=== PATIENT | male | born 1945 | race Caucasian/White ===

== ENCOUNTER 2017-11-30 11:04 | Outpatient (CLI) | payer MEDICARE ==
[~2017-11-30 11:04] MED LIST: ASPI-1265 PO; COU5T PO; GLIM4TAB79 PO; LANTUS SUBCUT; LOSA100T28 PO; METF1000 PO; METO25TA6 PO; METO50TA16 PO; MULT-785 PO; PIOG45TA PO; PRO30XLT PO; SIMV40TA4
== END 2017-11-30 23:59 | disposition home or self-care (01) ==
LOC: VAS 11:04
PROVIDERS: ATTEND Internal Medicine Cardiovascular Disease
DX: R60.0 Localized edema (principal); E11.9 Type 2 diabetes mellitus without complications; I25.2 Old myocardial infarction; I10 Essential (primary) hypertension; Z95.1 Presence of aortocoronary bypass graft; Z83.42 Family history of familial hypercholesterolemia
CPT/HCPCS: 93971

== ENCOUNTER 2018-02-20 09:30 | Inpatient (IN) | payer MEDICARE ==
[~2018-02-20] VITALS: Ht 167.6 cm; Wt 182.0 kg
[2018-02-20 10:22] LABS: BASOPHILS # (AUTO) 0.1 X10'3 (0-0.2); BASOPHILS % (AUTO) 0.8 % (0-1); EOSINOPHILS # (AUTO) 0.2 X10'3 (0-0.9); EOSINOPHILS % (AUTO) 3.3 % (0-6); HEMATOCRIT 40.7 % (42.0-52.0); HEMOGLOBIN 13.9 g/dl (14.0-17.9); LYMPHOCYTES % (AUTO) 14.2 % (21-51); MEAN CORPUSCULAR HEMOGLOBIN 28.9 PG (27.0-31.0); MEAN CORPUSCULAR HGB CONC 34.1 % (33.0-36.5); MEAN CORPUSCULAR VOLUME 84.9 FL (78-98); MEAN PLATELET VOLUME 7.8 FL (7.4-10.4); MONOCYTES # (AUTO) 0.4 X10'3 (0-0.9); MONOCYTES % (AUTO) 5.8 % (2-12); NEUTROPHILS # (AUTO) 5.4 X10'3 (1.8-7.7); NEUTROPHILS % (AUTO) 75.9 % (42-75); PLATELET COUNT 222 X10'3 (140-440); RED CELL DISTRIBUTION WIDTH 14.4 % (11.5-14.5); WHITE BLOOD COUNT 7.1 X10'3 (4.5-11.0)
[2018-02-20 10:32] LABS: INR 1.8 INR; PARTIAL THROMBOPLASTIN TIME 30 SECONDS (22-32); PROTHROMBIN TIME 18.3 SECONDS (9.0-12.0)
[2018-02-20 10:45] LABS: ALANINE AMINOTRANSFERASE 41 U/L (12-78); ALBUMIN 2.9 G/DL (3.4-5.0); ALBUMIN/GLOBULIN RATIO 0.7 (1.1-1.5); ALKALINE PHOSPHATASE 88 IU/L (46-116); ANION GAP 6 (8-16); ASPARTATE AMINO TRANSFERASE 15 U/L (10-37); BILIRUBIN,TOTAL 0.7 MG/DL (0.1-1.0); BLOOD UREA NITROGEN 29 MG/DL (7-18); BUN/CREATININE RATIO 17.1 (5.4-32.0); CALCIUM 9.1 MG/DL (8.5-10.1); CHLORIDE 92 MMOL/L (99-107); POTASSIUM 5.4 MMOL/L (3.5-5.1); SODIUM 127 MMOL/L (135-145); TOTAL CARBON DIOXIDE 28.9 MMOL/L (24-32); eGFR 40 ML/MIN
[2018-02-20 10:46] LABS: GLUCOSE 540 MG/DL (70-104)
[2018-02-20] MEDS ORDERED: ondansetron/PF 4mg/2ml inj IV ONE (12:00)
[2018-02-20] MEDS ORDERED: sodium bicarbonate (8.4%) inj. 100 MEQ in sodium chloride 0.45% 500ml 500 ML IV PRN (12:01)
[2018-02-20] MEDS ORDERED: potassium CL 20mEq in D5-1/2NS 1,000 ML IV PRN (12:01)
[2018-02-20] MEDS ORDERED: sodium bicarbonate (8.4%) inj. 50 MEQ in sodium chloride 0.45% 500ml 250 ML IV PRN (12:01)
[2018-02-20] MEDS ORDERED: insulin regular, DKA only 100 UNIT in normal saline 100ml IV soln 99 ML IV SCH ×2 (12:01)
[2018-02-20] MEDS ORDERED: mag hydrox/Alum hydrox/simeth 30ml oral suspension PO PRN (12:05)
[2018-02-20] MEDS: K and/or MAG REPLACEMENT MC SCH (12:05)
[2018-02-20] MEDS ORDERED: magnesium hydroxide 30ml (MOM) UD suspension PO PRN (12:05)
[2018-02-20] MEDS ORDERED: potassium Cl 20 mEq SR tablet PO PRN ×4 (12:05)
[2018-02-20] MEDS ORDERED: Neutra Phos packet PO PRN (12:05)
[2018-02-20] MEDS ORDERED: magnesium 2GM in 50ml NS 50 ML IV PRN (12:05)
[2018-02-20] MEDS ORDERED: insulin regular, human 10 units/0.1 ml syringe SQ PRN (12:05)
[2018-02-20] MEDS ORDERED: sodium phosphate inj. 15 MMOL in dextrose 5%-water 150 ML IV PRN (12:05)
[2018-02-20] MEDS ORDERED: sodium phosphate inj. 30 MMOL in dextrose 5%-water 250 ML IV PRN (12:05)
[2018-02-20] MEDS ORDERED: ondansetron/PF 4mg/2ml inj IV PRN (12:05)
[2018-02-20] MEDS ORDERED: magnesium Cl slow-release 64mg tablet PO PRN (12:05)
[2018-02-20] MEDS ORDERED: magnesium 4gm in 100ml NS 100 ML IV PRN (12:05)
[2018-02-20] MEDS ORDERED: K and/or MAG REPLACEMENT MC SCH (12:05)
[2018-02-20] MEDS ORDERED: acetaminophen 325mg tablet PO PRN ×2 (12:05)
[2018-02-20] MEDS ORDERED: potassium Cl 40MEQ/NS 500ml 500 ML IV PRN ×4 (12:05)
[2018-02-20] MEDS ORDERED: insulin regular, human 10 units/0.1 ml syringe IV ONE (12:10)
[2018-02-20 12:31] LABS: LIPASE 646 U/L (73-393); PHOSPHORUS 3.4 MG/DL (2.3-4.5)
[2018-02-20] MEDS: normal saline 1000ml 1,000 ML IV SCH ×4 (12:43→21:10)
[2018-02-20] MEDS ORDERED: NIFE30TA95 PO (12:57)
[2018-02-20] MEDS ORDERED: METO50TA17 PO (12:58)
[2018-02-20] MEDS ORDERED: TETanus/Pertussis (Acell)/Diphther VAC/PF (Tdap-Adult) 0.5ml syringe IMVAC ONE (15:25)
[2018-02-20 15:52] LABS: CLARITY,URINE CLEAR (Clear); COLOR,URINE STRAW (Yellow); GLUCOSE, URINE >=1000 mg/dl (Neg); KETONES,URINE NEGATIVE (Neg); LEUKOCYTE ESTERASE ,URINE NEGATIVE (Neg); NITRITES, URINE NEGATIVE (Neg); OCCULT BLOOD,URINE MODERATE (Neg); PH,URINE 7.5 (4.8-8.0); PROTEIN,URINE 100 mg/dl (Neg); UA COLLECTION TYPE CLN CATCH MIDSTREAM; UROBILINOGEN,URINE 0.2 E.U/dL (0.2-1.0)
[2018-02-20 15:59] LABS: BACTERIA,URINE FEW /HPF (Neg); RBC,URINE 50-100 /HPF (0-2); SQUAMOUS EPITHELIAL CELL,UR FEW /LPF (FEW); WBC,URINE 0-4 /HPF (0-4)
[2018-02-20] MEDS ORDERED: heparin, porcine 5000 units/ml vial SQ SCH (16:00)
[2018-02-20 16:15] LABS: INR 1.8 INR; PROTHROMBIN TIME 18.3 SECONDS (9.0-12.0)
[2018-02-20 16:23] LABS: ALBUMIN 2.6 G/DL (3.4-5.0); ANION GAP 5 (8-16); BLOOD UREA NITROGEN 22 MG/DL (7-18); BUN/CREATININE RATIO 15.8 (5.4-32.0); CALCIUM 8.6 MG/DL (8.5-10.1); CHLORIDE 102 MMOL/L (99-107); CREATININE 1.39 MG/DL (0.60-1.10); GLUCOSE 166 MG/DL (70-104); PHOSPHORUS 1.9 MG/DL (2.3-4.5); POTASSIUM 4.3 MMOL/L (3.5-5.1); SODIUM 137 MMOL/L (135-145); TOTAL CARBON DIOXIDE 30.1 MMOL/L (24-32); eGFR 50 ML/MIN
[2018-02-20 20:45] VITALS: BP 139/61
[2018-02-20] MEDS: metoprolol tartrate 50mg tablet PO SCH (21:09)
[2018-02-20 21:51] LABS: PHOSPHORUS 2.4 MG/DL (2.3-4.5)
[2018-02-20 23:00] VITALS: BP 131/62
[2018-02-20] MEDS: warfarin 5mg tablet PO SCH (23:43)
[2018-02-21 03:00] VITALS: BP 159/71
[2018-02-21 05:09] LABS: BASOPHILS % (AUTO) 0.3 % (0-1); EOSINOPHILS # (AUTO) 0.2 X10'3 (0-0.9); EOSINOPHILS % (AUTO) 3.2 % (0-6); HEMATOCRIT 39.1 % (42.0-52.0); HEMOGLOBIN 13.3 g/dl (14.0-17.9); LYMPHOCYTES # (AUTO) 1.5 X10'3 (1.1-4.8); LYMPHOCYTES % (AUTO) 21.3 % (21-51); MEAN CORPUSCULAR HEMOGLOBIN 29.2 PG (27.0-31.0); MEAN CORPUSCULAR HGB CONC 34.1 % (33.0-36.5); MEAN CORPUSCULAR VOLUME 85.7 FL (78-98); MEAN PLATELET VOLUME 7.8 FL (7.4-10.4); MONOCYTES # (AUTO) 0.5 X10'3 (0-0.9); MONOCYTES % (AUTO) 6.6 % (2-12); NEUTROPHILS # (AUTO) 4.9 X10'3 (1.8-7.7); NEUTROPHILS % (AUTO) 68.6 % (42-75); PLATELET COUNT 182 X10'3 (140-440); RED BLOOD COUNT 4.56 X10'6 (4.70-6.10); RED CELL DISTRIBUTION WIDTH 14.5 % (11.5-14.5); WHITE BLOOD COUNT 7.1 X10'3 (4.5-11.0)
[2018-02-21 05:16] LABS: INR 1.8 INR; PROTHROMBIN TIME 18.1 SECONDS (9.0-12.0)
[2018-02-21 05:35] LABS: MAGNESIUM 1.9 MG/DL (1.5-2.4)
[2018-02-21 06:00] VITALS: BP 178/73
[2018-02-21] MEDS ORDERED: dextrose ORAL solution 15 GM/59 ML bottle PO PRN ×2 (06:35)
[2018-02-21] MEDS ORDERED: dextrose 50%-water 50ml dispensing syringe IV PRN ×2 (06:35)
[2018-02-21] MEDS ORDERED: glucagon, human recombinant 1mg kit SUBCUT PRN (06:35)
[2018-02-21 06:47] LABS: ALANINE AMINOTRANSFERASE 35 U/L (12-78); ALBUMIN 2.3 G/DL (3.4-5.0); ALBUMIN/GLOBULIN RATIO 0.7 (1.1-1.5); ALKALINE PHOSPHATASE 69 IU/L (46-116); ANION GAP 9 (8-16); ASPARTATE AMINO TRANSFERASE 13 U/L (10-37); BILIRUBIN,TOTAL 0.5 MG/DL (0.1-1.0); BLOOD UREA NITROGEN 21 MG/DL (7-18); BUN/CREATININE RATIO 16.8 (5.4-32.0); CALCIUM 8.2 MG/DL (8.5-10.1); CHLORIDE 104 MMOL/L (99-107); CREATININE 1.25 MG/DL (0.60-1.10); GLUCOSE 255 MG/DL (70-104); POTASSIUM 4.5 MMOL/L (3.5-5.1); SODIUM 135 MMOL/L (135-145); TOTAL PROTEIN 5.7 G/DL (6.4-8.2); eGFR 57 ML/MIN
[2018-02-21 06:58] LABS: HEMOGLOBIN A1C 12.9 % (4.5-6.2)
[2018-02-21] MEDS: K and/or MAG REPLACEMENT MC SCH (08:00)
[2018-02-21] MEDS: losartan 50mg tablet PO SCH (08:25)
[2018-02-21] MEDS: metoprolol tartrate 50mg tablet PO SCH ×2 (08:25→20:47)
[2018-02-21] MEDS: NIFEdipine XL 30mg tablet PO SCH (08:25)
[2018-02-21] MEDS: aspirin 81mg tab.chew PO SCH (08:26)
[2018-02-21] MEDS: insulin Lispro (HumaLOG) vial - multi-dose SQ SCH ×4 (09:22→20:56)
[2018-02-21 11:00] VITALS: BP 141/60
[2018-02-21] MEDS: normal saline 1000ml 1,000 ML IV SCH (11:18)
[2018-02-21 15:00] VITALS: BP 136/67
[2018-02-21] MEDS ORDERED: MESSAGE TO PHARMACY PO ONE (17:05)
[2018-02-21 19:00] VITALS: BP 161/72
[2018-02-21] MEDS: warfarin 5mg tablet PO SCH (20:47)
[2018-02-21] MEDS ORDERED: insulin glargine (Lantus) pen - multi-dose SQ SCH (21:00)
[2018-02-21 23:00] VITALS: BP 148/65
[2018-02-22 03:00] VITALS: BP 177/74
[2018-02-22 03:26] VITALS: BP 170/77
[2018-02-22 05:04] LABS: BASOPHILS % (AUTO) 0.5 % (0-1); EOSINOPHILS # (AUTO) 0.3 X10'3 (0-0.9); EOSINOPHILS % (AUTO) 5.2 % (0-6); HEMOGLOBIN 12.8 g/dl (14.0-17.9); LYMPHOCYTES # (AUTO) 1.6 X10'3 (1.1-4.8); LYMPHOCYTES % (AUTO) 25.9 % (21-51); MEAN CORPUSCULAR HEMOGLOBIN 28.7 PG (27.0-31.0); MEAN CORPUSCULAR HGB CONC 33.7 % (33.0-36.5); MEAN CORPUSCULAR VOLUME 85.3 FL (78-98); MEAN PLATELET VOLUME 7.7 FL (7.4-10.4); MONOCYTES # (AUTO) 0.4 X10'3 (0-0.9); MONOCYTES % (AUTO) 6.4 % (2-12); NEUTROPHILS # (AUTO) 3.9 X10'3 (1.8-7.7); PLATELET COUNT 186 X10'3 (140-440); RED BLOOD COUNT 4.45 X10'6 (4.70-6.10); RED CELL DISTRIBUTION WIDTH 14.6 % (11.5-14.5); WHITE BLOOD COUNT 6.4 X10'3 (4.5-11.0)
[2018-02-22 06:00] VITALS: BP 170/72
[2018-02-22] MEDS: NIFEdipine XL 30mg tablet PO SCH (07:57)
[2018-02-22] MEDS: aspirin 81mg tab.chew PO SCH (07:57)
[2018-02-22] MEDS: metoprolol tartrate 50mg tablet PO SCH (07:58)
[2018-02-22] MEDS: losartan 50mg tablet PO SCH (07:58)
[2018-02-22] MEDS ORDERED: atorvastatin 20mg tablet PO SCH (08:00)
[2018-02-22] MEDS: K and/or MAG REPLACEMENT MC SCH (08:00)
[2018-02-22] MEDS ORDERED: lisinopril 10 MG tablet PO SCH (08:00)
[2018-02-22] MEDS: insulin Lispro (HumaLOG) vial - multi-dose SQ SCH (08:06)
[2018-02-22] MEDS ORDERED: CEPH500C5 PO (10:12)
[2018-02-22] MEDS ORDERED: ATOR40TA PO (10:12)
== END 2018-02-22 11:42 | disposition home or self-care (01) | DRG 682 ==
LOC: ER 09:30 → ED HOLD 12:01 → PCU 3S 20:55
PROVIDERS: ADMIT Family Medicine; ATTEND Family Medicine
PROC: 3E0234Z Introduction of Serum, Toxoid and Vaccine into Muscle, Percutaneous Approach (ICD-10-PCS; principal; 2018-02-20)
DX: N17.9 Acute kidney failure, unspecified (principal); E11.00 Type 2 diabetes mellitus with hyperosmolarity without nonketotic hyperglycemic-hyperosmolar coma (NKHHC); G93.41 Metabolic encephalopathy; E87.1 Hypo-osmolality and hyponatremia; E11.22 Type 2 diabetes mellitus with diabetic chronic kidney disease; B35.1 Tinea unguium; I82.502 Chronic embolism and thrombosis of unspecified deep veins of left lower extremity; Z68.44 Body mass index [BMI] 60.0-69.9, adult; L03.811 Cellulitis of head [any part, except face]; B15.9 Hepatitis A without hepatic coma; E87.5 Hyperkalemia; I25.10 Atherosclerotic heart disease of native coronary artery without angina pectoris; I12.9 Hypertensive chronic kidney disease with stage 1 through stage 4 chronic kidney disease, or unspecified chronic kidney disease; K21.9 Gastro-esophageal reflux disease without esophagitis; N18.9 Chronic kidney disease, unspecified; F32.9 Major depressive disorder, single episode, unspecified; E78.5 Hyperlipidemia, unspecified; E66.9 Obesity, unspecified; G89.29 Other chronic pain; R74.0 Nonspecific elevation of levels of transaminase and lactic acid dehydrogenase [LDH]; R74.8 Abnormal levels of other serum enzymes; Z95.1 Presence of aortocoronary bypass graft; Q80.9 Congenital ichthyosis, unspecified; Z90.49 Acquired absence of other specified parts of digestive tract; Z91.19 Patient's noncompliance with other medical treatment and regimen; Z91.010 Allergy to peanuts; Z79.01 Long term (current) use of anticoagulants; Z79.82 Long term (current) use of aspirin; Z79.4 Long term (current) use of insulin; Z79.899 Other long term (current) drug therapy; Z82.49 Family history of ischemic heart disease and other diseases of the circulatory system; Z83.3 Family history of diabetes mellitus; Z23 Encounter for immunization
CPT/HCPCS: 36415; 71045; 80048; 80053; 81001; 82948; 83036; 83690; 83735; 83880; 84100; 84484; 85025; 85610; 85730; 87070; 90715; 93005; 93306; 97116; 97161; 99285; J1815; J7030

== ENCOUNTER 2018-03-14 11:58 | Inpatient (IN) | payer MEDICARE ==
[~2018-03-14] VITALS: Ht 167.6 cm; Wt 74.0 kg
[~2018-03-14 11:58] MED LIST changes: +ATOR40TA PO; -GLIM4TAB79 PO; -METO25TA6 PO; -METO50TA16 PO; +METO50TA17 PO; +NIFE30TA95 PO; -PIOG45TA PO; -PRO30XLT PO; -SIMV40TA4
[2018-03-14 12:46] LABS: BASOPHILS % (AUTO) 0.3 % (0-1); EOSINOPHILS # (AUTO) 0.3 X10'3 (0-0.9); EOSINOPHILS % (AUTO) 2.9 % (0-6); HEMATOCRIT 39.8 % (42.0-52.0); HEMOGLOBIN 13.7 g/dl (14.0-17.9); LYMPHOCYTES % (AUTO) 18.2 % (21-51); MEAN CORPUSCULAR HEMOGLOBIN 29.5 PG (27.0-31.0); MEAN CORPUSCULAR HGB CONC 34.5 % (33.0-36.5); MEAN CORPUSCULAR VOLUME 85.7 FL (78-98); MEAN PLATELET VOLUME 7.9 FL (7.4-10.4); MONOCYTES # (AUTO) 0.5 X10'3 (0-0.9); MONOCYTES % (AUTO) 4.6 % (2-12); NEUTROPHILS # (AUTO) 8.1 X10'3 (1.8-7.7); PLATELET COUNT 243 X10'3 (140-440); RED BLOOD COUNT 4.65 X10'6 (4.70-6.10); RED CELL DISTRIBUTION WIDTH 14.7 % (11.5-14.5); WHITE BLOOD COUNT 10.9 X10'3 (4.5-11.0)
[2018-03-14 12:47] LABS: INR 2.7 INR; PARTIAL THROMBOPLASTIN TIME 35 SECONDS (22-32); PROTHROMBIN TIME 26.7 SECONDS (9.0-12.0)
[2018-03-14 12:51] LABS: ALANINE AMINOTRANSFERASE 46 U/L (12-78); ALBUMIN 3.2 G/DL (3.4-5.0); ALBUMIN/GLOBULIN RATIO 0.9 (1.1-1.5); ALKALINE PHOSPHATASE 76 IU/L (46-116); ANION GAP 10 (8-16); ASPARTATE AMINO TRANSFERASE 15 U/L (10-37); BILIRUBIN,TOTAL 1.2 MG/DL (0.1-1.0); BLOOD UREA NITROGEN 36 MG/DL (7-18); BUN/CREATININE RATIO 16.1 (5.4-32.0); CALCIUM 8.6 MG/DL (8.5-10.1); CHLORIDE 100 MMOL/L (99-107); CREATININE 2.23 MG/DL (0.60-1.10); GLUCOSE 288 MG/DL (70-104); POTASSIUM 5.2 MMOL/L (3.5-5.1); SODIUM 135 MMOL/L (135-145); TOTAL CARBON DIOXIDE 24.7 MMOL/L (24-32); TOTAL PROTEIN 6.7 G/DL (6.4-8.2); eGFR 29 ML/MIN
[2018-03-14] MEDS ORDERED: normal saline 1000ML IV soln IVB ONE (13:05)
[2018-03-14] MEDS ORDERED: normal saline 1000ml 1,000 ML IV ONE (14:55)
[2018-03-14] MEDS ORDERED: ondansetron/PF 4mg/2ml inj IV PRN (15:00)
[2018-03-14] MEDS ORDERED: dextrose ORAL solution 15 GM/59 ML bottle PO PRN ×2 (15:00)
[2018-03-14] MEDS ORDERED: MESSAGE TO PHARMACY PO ONE (15:00)
[2018-03-14] MEDS ORDERED: glucagon, human recombinant 1mg kit SUBCUT PRN (15:00)
[2018-03-14] MEDS ORDERED: dextrose 50%-water 50ml dispensing syringe IV PRN ×2 (15:00)
[2018-03-14] MEDS ORDERED: magnesium hydroxide 30ml (MOM) UD suspension PO PRN (15:00)
[2018-03-14] MEDS ORDERED: mag hydrox/Alum hydrox/simeth 30ml oral suspension PO PRN (15:00)
[2018-03-14] MEDS ORDERED: hydrALAZINE 20mg/ml inj. IV PRN (15:05)
[2018-03-14] MEDS: normal saline 1000ml 1,000 ML IV SCH ×2 (15:22→20:22)
[2018-03-14] MEDS: insulin glargine (Lantus) pen - multi-dose SQ SCH (21:50)
[2018-03-15 02:08] LABS: BASOPHILS % (AUTO) 0.1 % (0-1); EOSINOPHILS # (AUTO) 0.3 X10'3 (0-0.9); EOSINOPHILS % (AUTO) 4.3 % (0-6); HEMATOCRIT 41.3 % (42.0-52.0); HEMOGLOBIN 13.8 g/dl (14.0-17.9); LYMPHOCYTES # (AUTO) 1.6 X10'3 (1.1-4.8); LYMPHOCYTES % (AUTO) 26.6 % (21-51); MEAN CORPUSCULAR HEMOGLOBIN 28.6 PG (27.0-31.0); MEAN CORPUSCULAR HGB CONC 33.4 % (33.0-36.5); MEAN CORPUSCULAR VOLUME 85.5 FL (78-98); MEAN PLATELET VOLUME 8.2 FL (7.4-10.4); MONOCYTES # (AUTO) 0.3 X10'3 (0-0.9); MONOCYTES % (AUTO) 5.7 % (2-12); NEUTROPHILS # (AUTO) 3.7 X10'3 (1.8-7.7); NEUTROPHILS % (AUTO) 63.3 % (42-75); PLATELET COUNT 167 X10'3 (140-440); RED BLOOD COUNT 4.83 X10'6 (4.70-6.10); RED CELL DISTRIBUTION WIDTH 13.8 % (11.5-14.5); WHITE BLOOD COUNT 5.9 X10'3 (4.5-11.0)
[2018-03-15 02:17] LABS: INR 2.2 INR
[2018-03-15 02:27] LABS: ALANINE AMINOTRANSFERASE 33 U/L (12-78); ALBUMIN 2.6 G/DL (3.4-5.0); ALBUMIN/GLOBULIN RATIO 0.8 (1.1-1.5); ALKALINE PHOSPHATASE 71 IU/L (46-116); ANION GAP 8 (8-16); ASPARTATE AMINO TRANSFERASE 13 U/L (10-37); BILIRUBIN,TOTAL 0.9 MG/DL (0.1-1.0); BLOOD UREA NITROGEN 29 MG/DL (7-18); BUN/CREATININE RATIO 18.6 (5.4-32.0); CALCIUM 8.3 MG/DL (8.5-10.1); CHLORIDE 105 MMOL/L (99-107); CREATININE 1.56 MG/DL (0.60-1.10); GLUCOSE 177 MG/DL (70-104); POTASSIUM 3.7 MMOL/L (3.5-5.1); SODIUM 138 MMOL/L (135-145); TOTAL CARBON DIOXIDE 24.9 MMOL/L (24-32); eGFR 44 ML/MIN
[2018-03-15] MEDS ORDERED: non-formulary drug (Atorvastatin Calcium* (Lipitor*) 1 TAB) PO SCH (08:00)
[2018-03-15] MEDS ORDERED: LOSARTAN POTASSIUM PO SCH (08:00)
[2018-03-15] MEDS ORDERED: losartan 50mg tablet PO SCH (08:00)
[2018-03-15] MEDS: multivitamins, therapeutics tablet PO SCH (09:27)
[2018-03-15] MEDS: atorvastatin 20mg tablet PO SCH (09:27)
[2018-03-15] MEDS: aspirin 81mg tab.chew PO SCH (09:27)
[2018-03-15] MEDS: normal saline 1000ml 1,000 ML IV SCH ×2 (10:56→18:58)
[2018-03-15 13:55] VITALS: BP 157/70
[2018-03-15 18:00] VITALS: BP 174/75
[2018-03-15] MEDS: insulin Lispro (HumaLOG) vial - multi-dose SQ SCH (19:02)
[2018-03-15] MEDS: insulin glargine (Lantus) pen - multi-dose SQ SCH (21:23)
[2018-03-15 22:00] VITALS: BP 183/73
[2018-03-15 22:30] VITALS: BP 161/77
[2018-03-16 02:00] VITALS: BP 167/75
[2018-03-16] MEDS: normal saline 1000ml 1,000 ML IV SCH ×2 (04:29→17:24)
[2018-03-16] MEDS: hydrALAZINE 20mg/ml inj. IV PRN ×2 (05:41→17:24)
[2018-03-16 05:51] LABS: BASOPHILS % (AUTO) 0.5 % (0-1); EOSINOPHILS # (AUTO) 0.3 X10'3 (0-0.9); EOSINOPHILS % (AUTO) 4.7 % (0-6); HEMATOCRIT 40.5 % (42.0-52.0); HEMOGLOBIN 13.8 g/dl (14.0-17.9); LYMPHOCYTES # (AUTO) 1.6 X10'3 (1.1-4.8); LYMPHOCYTES % (AUTO) 26.7 % (21-51); MEAN CORPUSCULAR HEMOGLOBIN 29.5 PG (27.0-31.0); MEAN CORPUSCULAR HGB CONC 34.1 % (33.0-36.5); MEAN CORPUSCULAR VOLUME 86.6 FL (78-98); MEAN PLATELET VOLUME 7.6 FL (7.4-10.4); MONOCYTES # (AUTO) 0.4 X10'3 (0-0.9); MONOCYTES % (AUTO) 6.4 % (2-12); NEUTROPHILS # (AUTO) 3.7 X10'3 (1.8-7.7); NEUTROPHILS % (AUTO) 61.7 % (42-75); PLATELET COUNT 170 X10'3 (140-440); RED BLOOD COUNT 4.68 X10'6 (4.70-6.10); RED CELL DISTRIBUTION WIDTH 14.6 % (11.5-14.5)
[2018-03-16 06:00] VITALS: BP 175/77
[2018-03-16 06:21] LABS: ALANINE AMINOTRANSFERASE 35 U/L (12-78); ALBUMIN 2.5 G/DL (3.4-5.0); ALBUMIN/GLOBULIN RATIO 0.8 (1.1-1.5); ALKALINE PHOSPHATASE 62 IU/L (46-116); ANION GAP 7 (8-16); ASPARTATE AMINO TRANSFERASE 10 U/L (10-37); BILIRUBIN,TOTAL 1.1 MG/DL (0.1-1.0); BLOOD UREA NITROGEN 19 MG/DL (7-18); BUN/CREATININE RATIO 13.8 (5.4-32.0); CHLORIDE 106 MMOL/L (99-107); CREATININE 1.38 MG/DL (0.60-1.10); GLUCOSE 83 MG/DL (70-104); POTASSIUM 4.1 MMOL/L (3.5-5.1); SODIUM 141 MMOL/L (135-145); TOTAL CARBON DIOXIDE 27.7 MMOL/L (24-32); TOTAL PROTEIN 5.7 G/DL (6.4-8.2); eGFR 51 ML/MIN
[2018-03-16] MEDS: multivitamins, therapeutics tablet PO SCH (09:21)
[2018-03-16] MEDS: aspirin 81mg tab.chew PO SCH (09:21)
[2018-03-16] MEDS: carVEDilol 3.125mg tablet PO SCH ×2 (09:21→20:01)
[2018-03-16] MEDS: losartan 50mg tablet PO SCH (09:21)
[2018-03-16] MEDS: atorvastatin 20mg tablet PO SCH (09:24)
[2018-03-16] MEDS: insulin Lispro (HumaLOG) vial - multi-dose SQ SCH ×3 (09:29→19:01)
[2018-03-16 10:00] VITALS: BP 148/67
[2018-03-16 18:00] VITALS: BP 176/76
[2018-03-16] MEDS ORDERED: warfarin 5mg tablet PO SCH (21:00)
[2018-03-16] MEDS: insulin glargine (Lantus) pen - multi-dose SQ SCH (21:25)
[2018-03-16 22:00] VITALS: BP 158/65
[2018-03-17] VITALS (9 sets, daily range): BP systolic 139–201; BP diastolic 60–77
[2018-03-17] MEDS: normal saline 1000ml 1,000 ML IV SCH (00:16)
[2018-03-17] MEDS: acetaminophen 325mg tablet PO PRN ×3 (02:39→19:52)
[2018-03-17] MEDS: hydrALAZINE 20mg/ml inj. IV PRN ×3 (02:40→17:54)
[2018-03-17 07:13] LABS: BASOPHILS % (AUTO) 0.3 % (0-1); EOSINOPHILS # (AUTO) 0.3 X10'3 (0-0.9); EOSINOPHILS % (AUTO) 5.2 % (0-6); HEMOGLOBIN 13.6 g/dl (14.0-17.9); LYMPHOCYTES # (AUTO) 1.1 X10'3 (1.1-4.8); LYMPHOCYTES % (AUTO) 17.1 % (21-51); MEAN CORPUSCULAR HEMOGLOBIN 29.5 PG (27.0-31.0); MEAN CORPUSCULAR VOLUME 86.7 FL (78-98); MONOCYTES # (AUTO) 0.4 X10'3 (0-0.9); MONOCYTES % (AUTO) 6.4 % (2-12); NEUTROPHILS # (AUTO) 4.5 X10'3 (1.8-7.7); PLATELET COUNT 178 X10'3 (140-440); RED BLOOD COUNT 4.62 X10'6 (4.70-6.10); RED CELL DISTRIBUTION WIDTH 14.7 % (11.5-14.5); WHITE BLOOD COUNT 6.4 X10'3 (4.5-11.0)
[2018-03-17 07:30] LABS: INR 1.2 INR; PROTHROMBIN TIME 12.3 SECONDS (9.0-12.0)
[2018-03-17 07:37] LABS: ALANINE AMINOTRANSFERASE 32 U/L (12-78); ALBUMIN 2.3 G/DL (3.4-5.0); ALBUMIN/GLOBULIN RATIO 0.7 (1.1-1.5); ALKALINE PHOSPHATASE 63 IU/L (46-116); ANION GAP 9 (8-16); ASPARTATE AMINO TRANSFERASE 12 U/L (10-37); BILIRUBIN,TOTAL 1.2 MG/DL (0.1-1.0); BLOOD UREA NITROGEN 20 MG/DL (7-18); BUN/CREATININE RATIO 14.9 (5.4-32.0); CALCIUM 7.9 MG/DL (8.5-10.1); CHLORIDE 108 MMOL/L (99-107); CREATININE 1.34 MG/DL (0.60-1.10); GLUCOSE 110 MG/DL (70-104); SODIUM 140 MMOL/L (135-145); TOTAL CARBON DIOXIDE 23.5 MMOL/L (24-32); TOTAL PROTEIN 5.5 G/DL (6.4-8.2); eGFR 53 ML/MIN
[2018-03-17] MEDS: carVEDilol 3.125mg tablet PO SCH (07:52)
[2018-03-17] MEDS: multivitamins, therapeutics tablet PO SCH (07:52)
[2018-03-17] MEDS: losartan 50mg tablet PO SCH ×2 (07:52→12:03)
[2018-03-17] MEDS: aspirin 81mg tab.chew PO SCH (07:52)
[2018-03-17] MEDS: atorvastatin 20mg tablet PO SCH (07:52)
[2018-03-17] MEDS: insulin Lispro (HumaLOG) vial - multi-dose SQ SCH ×3 (08:56→19:41)
[2018-03-17] MEDS: carvedilol 6.25mg tablet PO SCH ×2 (12:03→19:55)
[2018-03-17] MEDS ORDERED: carvedilol 6.25mg tablet PO SCH ×2 (20:00)
[2018-03-17] MEDS ORDERED: warfarin 4mg tablet PO ONE (21:00)
[2018-03-18 01:53] VITALS: BP 174/81
[2018-03-18] MEDS: hydrALAZINE 20mg/ml inj. IV PRN (02:09)
[2018-03-18 05:50] LABS: BASOPHILS % (AUTO) 0.6 % (0-1); EOSINOPHILS # (AUTO) 0.3 X10'3 (0-0.9); EOSINOPHILS % (AUTO) 5.2 % (0-6); HEMATOCRIT 39.3 % (42.0-52.0); HEMOGLOBIN 13.7 g/dl (14.0-17.9); LYMPHOCYTES # (AUTO) 0.7 X10'3 (1.1-4.8); LYMPHOCYTES % (AUTO) 11.9 % (21-51); MEAN CORPUSCULAR HEMOGLOBIN 29.6 PG (27.0-31.0); MEAN CORPUSCULAR HGB CONC 34.7 % (33.0-36.5); MEAN CORPUSCULAR VOLUME 85.3 FL (78-98); MEAN PLATELET VOLUME 7.6 FL (7.4-10.4); MONOCYTES # (AUTO) 0.5 X10'3 (0-0.9); MONOCYTES % (AUTO) 7.9 % (2-12); NEUTROPHILS # (AUTO) 4.4 X10'3 (1.8-7.7); NEUTROPHILS % (AUTO) 74.4 % (42-75); PLATELET COUNT 179 X10'3 (140-440); RED BLOOD COUNT 4.62 X10'6 (4.70-6.10); RED CELL DISTRIBUTION WIDTH 14.6 % (11.5-14.5); WHITE BLOOD COUNT 5.9 X10'3 (4.5-11.0)
[2018-03-18 06:00] VITALS: BP 138/84
[2018-03-18 06:03] LABS: INR 1.2 INR; PROTHROMBIN TIME 12.7 SECONDS (9.0-12.0)
[2018-03-18 06:10] LABS: ALANINE AMINOTRANSFERASE 31 U/L (12-78); ALBUMIN 2.5 G/DL (3.4-5.0); ALBUMIN/GLOBULIN RATIO 0.8 (1.1-1.5); ALKALINE PHOSPHATASE 63 IU/L (46-116); ANION GAP 9 (8-16); ASPARTATE AMINO TRANSFERASE 14 U/L (10-37); BLOOD UREA NITROGEN 18 MG/DL (7-18); CALCIUM 8.6 MG/DL (8.5-10.1); CHLORIDE 105 MMOL/L (99-107); CREATININE 1.38 MG/DL (0.60-1.10); GLUCOSE 168 MG/DL (70-104); SODIUM 138 MMOL/L (135-145); TOTAL CARBON DIOXIDE 24.3 MMOL/L (24-32); TOTAL PROTEIN 5.8 G/DL (6.4-8.2); eGFR 51 ML/MIN
[2018-03-18] MEDS: atorvastatin 20mg tablet PO SCH (08:28)
[2018-03-18] MEDS: multivitamins, therapeutics tablet PO SCH (08:28)
[2018-03-18] MEDS: losartan 50mg tablet PO SCH (08:29)
[2018-03-18] MEDS: carvedilol 6.25mg tablet PO SCH ×2 (08:29→19:20)
[2018-03-18] MEDS: aspirin 81mg tab.chew PO SCH (08:29)
[2018-03-18] MEDS: insulin Lispro (HumaLOG) vial - multi-dose SQ SCH ×3 (08:31→19:18)
[2018-03-18] MEDS ORDERED: hydrALAZINE 25 MG tablet PO PRN (12:20)
[2018-03-18 12:50] VITALS: BP 156/66
[2018-03-18] MEDS: HYDROchlorothiazide 12.5mg capsule PO SCH (16:39)
[2018-03-18 18:00] VITALS: BP 138/76
[2018-03-18] MEDS ORDERED: warfarin 5mg tablet PO ONE (21:00)
[2018-03-18 22:30] VITALS: BP 143/43
[2018-03-19 05:35] LABS: BASOPHILS % (AUTO) 0.5 % (0-1); EOSINOPHILS # (AUTO) 0.3 X10'3 (0-0.9); EOSINOPHILS % (AUTO) 4.7 % (0-6); HEMATOCRIT 38.9 % (42.0-52.0); HEMOGLOBIN 13.3 g/dl (14.0-17.9); LYMPHOCYTES # (AUTO) 0.7 X10'3 (1.1-4.8); LYMPHOCYTES % (AUTO) 11.2 % (21-51); MEAN CORPUSCULAR HEMOGLOBIN 29.4 PG (27.0-31.0); MEAN CORPUSCULAR HGB CONC 34.1 % (33.0-36.5); MEAN CORPUSCULAR VOLUME 86.5 FL (78-98); MEAN PLATELET VOLUME 7.6 FL (7.4-10.4); MONOCYTES # (AUTO) 0.5 X10'3 (0-0.9); MONOCYTES % (AUTO) 7.4 % (2-12); NEUTROPHILS # (AUTO) 5.1 X10'3 (1.8-7.7); NEUTROPHILS % (AUTO) 76.2 % (42-75); PLATELET COUNT 173 X10'3 (140-440); RED CELL DISTRIBUTION WIDTH 15.3 % (11.5-14.5); WHITE BLOOD COUNT 6.7 X10'3 (4.5-11.0)
[2018-03-19 05:42] LABS: INR 1.5 INR; PROTHROMBIN TIME 14.9 SECONDS (9.0-12.0)
[2018-03-19 06:32] LABS: ALANINE AMINOTRANSFERASE 34 U/L (12-78); ALBUMIN 2.5 G/DL (3.4-5.0); ALBUMIN/GLOBULIN RATIO 0.8 (1.1-1.5); ALKALINE PHOSPHATASE 66 IU/L (46-116); ANION GAP 10 (8-16); ASPARTATE AMINO TRANSFERASE 17 U/L (10-37); BILIRUBIN,TOTAL 0.7 MG/DL (0.1-1.0); BLOOD UREA NITROGEN 20 MG/DL (7-18); BUN/CREATININE RATIO 13.6 (5.4-32.0); CALCIUM 8.5 MG/DL (8.5-10.1); CHLORIDE 102 MMOL/L (99-107); CREATININE 1.47 MG/DL (0.60-1.10); GLUCOSE 133 MG/DL (70-104); POTASSIUM 4.4 MMOL/L (3.5-5.1); SODIUM 135 MMOL/L (135-145); TOTAL CARBON DIOXIDE 23.3 MMOL/L (24-32); TOTAL PROTEIN 5.8 G/DL (6.4-8.2); eGFR 47 ML/MIN
[2018-03-19] MEDS ORDERED: CARV6.253 PO (08:22)
[2018-03-19] MEDS ORDERED: HYDR12.5 PO (08:22)
[2018-03-19] MEDS: multivitamins, therapeutics tablet PO SCH (08:58)
[2018-03-19] MEDS: losartan 50mg tablet PO SCH (08:58)
[2018-03-19] MEDS: aspirin 81mg tab.chew PO SCH (08:58)
[2018-03-19] MEDS: carvedilol 6.25mg tablet PO SCH (08:58)
[2018-03-19] MEDS: atorvastatin 20mg tablet PO SCH (08:58)
[2018-03-19] MEDS: HYDROchlorothiazide 12.5mg capsule PO SCH (08:58)
== END 2018-03-19 09:30 | disposition home or self-care (01) | DRG 309 ==
LOC: ER 11:59 → ED HOLD 14:56 → EDBEDREQ 03-15 12:53 → ORTHO 4S 03-15 14:07
PROVIDERS: ADMIT Family Medicine; ATTEND Family Medicine
DX: R00.1 Bradycardia, unspecified (principal); N17.9 Acute kidney failure, unspecified; E11.22 Type 2 diabetes mellitus with diabetic chronic kidney disease; I08.1 Rheumatic disorders of both mitral and tricuspid valves; Z95.1 Presence of aortocoronary bypass graft; I16.1 Hypertensive emergency; I44.2 Atrioventricular block, complete; N18.3 Chronic kidney disease, stage 3 (moderate); E78.00 Pure hypercholesterolemia, unspecified; I25.10 Atherosclerotic heart disease of native coronary artery without angina pectoris; I12.9 Hypertensive chronic kidney disease with stage 1 through stage 4 chronic kidney disease, or unspecified chronic kidney disease; K21.9 Gastro-esophageal reflux disease without esophagitis; E66.9 Obesity, unspecified; F32.9 Major depressive disorder, single episode, unspecified; G89.29 Other chronic pain; M19.90 Unspecified osteoarthritis, unspecified site; E78.5 Hyperlipidemia, unspecified; Z90.49 Acquired absence of other specified parts of digestive tract; Z91.010 Allergy to peanuts; Z79.01 Long term (current) use of anticoagulants; Z79.82 Long term (current) use of aspirin; Z79.84 Long term (current) use of oral hypoglycemic drugs; Z79.899 Other long term (current) drug therapy; Z86.718 Personal history of other venous thrombosis and embolism; Z82.49 Family history of ischemic heart disease and other diseases of the circulatory system; Z83.3 Family history of diabetes mellitus; Z83.42 Family history of familial hypercholesterolemia; Z68.26 Body mass index [BMI] 26.0-26.9, adult
CPT/HCPCS: 36415; 71045; 80053; 82570; 82948; 83880; 84300; 84484; 85025; 85610; 85730; 87070; 87207; 93005; J0360; J1815; J7030

== ENCOUNTER 2018-07-14 04:33 | Emergency (ER) | payer MEDICARE ==
[~2018-07-14] VITALS: Ht 167.6 cm; Wt 86.0 kg
[~2018-07-14 04:33] MED LIST changes: +AMLO5TAB4 PO; -ATOR40TA PO; +CARV-50 PO; +CLOP75TA15 PO; +HYDR-4070 PO; +INSU100C10 SQ; -METF1000 PO; -METO50TA17 PO; -NIFE30TA95 PO
[2018-07-14 05:13] LABS: BASOPHILS % (AUTO) 0.1 % (0-1); EOSINOPHILS # (AUTO) 0.2 X10'3 (0-0.9); EOSINOPHILS % (AUTO) 3.1 % (0-6); HEMATOCRIT 34.7 % (42.0-52.0); HEMOGLOBIN 11.6 g/dl (14.0-17.9); LYMPHOCYTES % (AUTO) 13.4 % (21-51); MEAN CORPUSCULAR HEMOGLOBIN 29.2 PG (27.0-31.0); MEAN CORPUSCULAR HGB CONC 33.4 % (33.0-36.5); MEAN CORPUSCULAR VOLUME 87.6 FL (78-98); MEAN PLATELET VOLUME 7.4 FL (7.4-10.4); MONOCYTES # (AUTO) 0.5 X10'3 (0-0.9); MONOCYTES % (AUTO) 6.1 % (2-12); NEUTROPHILS # (AUTO) 5.8 X10'3 (1.8-7.7); NEUTROPHILS % (AUTO) 77.3 % (42-75); PLATELET COUNT 159 X10'3 (140-440); RED BLOOD COUNT 3.96 X10'6 (4.70-6.10); RED CELL DISTRIBUTION WIDTH 15.9 % (11.5-14.5); WHITE BLOOD COUNT 7.5 X10'3 (4.5-11.0)
[2018-07-14 05:24] LABS: INR 2.3 INR
[2018-07-14 05:29] LABS: CLARITY,URINE CLEAR (Clear); COLOR,URINE STRAW (Yellow); GLUCOSE, URINE 100 mg/dl (Neg); KETONES,URINE NEGATIVE (Neg); LEUKOCYTE ESTERASE ,URINE NEGATIVE (Neg); NITRITES, URINE NEGATIVE (Neg); OCCULT BLOOD,URINE SMALL (Neg); PH,URINE 7.5 (4.8-8.0); PROTEIN,URINE >=300 mg/dl (Neg); UROBILINOGEN,URINE 0.2 E.U/dL (0.2-1.0)
[2018-07-14 05:32] LABS: ALANINE AMINOTRANSFERASE 38 U/L (12-78); ALBUMIN/GLOBULIN RATIO 0.8 (1.1-1.5); ALKALINE PHOSPHATASE 67 IU/L (46-116); ANION GAP 8 (8-16); ASPARTATE AMINO TRANSFERASE 20 U/L (10-37); BILIRUBIN,TOTAL 0.8 MG/DL (0.1-1.0); BLOOD UREA NITROGEN 27 MG/DL (7-18); BUN/CREATININE RATIO 15.9 (5.4-32.0); CALCIUM 8.6 MG/DL (8.5-10.1); CHLORIDE 102 MMOL/L (99-107); GLUCOSE 157 MG/DL (70-104); POTASSIUM 3.5 MMOL/L (3.5-5.1); SODIUM 136 MMOL/L (135-145); TOTAL CARBON DIOXIDE 26.1 MMOL/L (24-32); TOTAL PROTEIN 6.7 G/DL (6.4-8.2); eGFR 40 ML/MIN
[2018-07-14 05:43] VITALS: BP 150/62
[2018-07-14 05:47] LABS: UA COLLECTION TYPE VOIDED
[2018-07-14 06:17] LABS: BACTERIA,URINE NONE SEEN /HPF (Neg); HYALINE CASTS 0-3 /LPF (NEGATIVE); MUCUS STRANDS FEW /LPF (Neg); SPERM FEW /HPF (NEGATIVE); SQUAMOUS EPITHELIAL CELL,UR NONE SEEN /LPF (FEW); WBC,URINE 0-4 /HPF (0-4)
== END 2018-07-14 06:11 | disposition home or self-care (01) ==
LOC: ER 04:33
DX: E11.649 Type 2 diabetes mellitus with hypoglycemia without coma (principal); R41.0 Disorientation, unspecified; I25.10 Atherosclerotic heart disease of native coronary artery without angina pectoris; E78.00 Pure hypercholesterolemia, unspecified; I10 Essential (primary) hypertension; K21.9 Gastro-esophageal reflux disease without esophagitis; I95.9 Hypotension, unspecified; G89.29 Other chronic pain; Z86.718 Personal history of other venous thrombosis and embolism; Z86.19 Personal history of other infectious and parasitic diseases; Z98.61 Coronary angioplasty status; Z95.1 Presence of aortocoronary bypass graft; Z98.890 Other specified postprocedural states; Z90.49 Acquired absence of other specified parts of digestive tract; Z79.82 Long term (current) use of aspirin; Z79.4 Long term (current) use of insulin; Z79.01 Long term (current) use of anticoagulants; Z79.899 Other long term (current) drug therapy; Z91.010 Allergy to peanuts
CPT/HCPCS: 36415; 80053; 81001; 82948; 85025; 85610; 99284

== ENCOUNTER 2019-01-15 08:07 | Outpatient (CLI) | payer MEDICARE ==
[~2019-01-15 08:07] MED LIST changes: -LOSA100T28 PO; +LOSA100T57 PO
== END 2019-01-15 23:59 | disposition home or self-care (01) ==
LOC: VAS 08:07
PROVIDERS: ATTEND Internal Medicine Cardiovascular Disease
DX: I11.0 Hypertensive heart disease with heart failure (principal); I50.9 Heart failure, unspecified; I25.2 Old myocardial infarction; E11.9 Type 2 diabetes mellitus without complications; Z91.010 Allergy to peanuts
CPT/HCPCS: 93975

== ENCOUNTER 2019-04-07 10:21 | Emergency (ER) | payer MEDICARE ==
[~2019-04-07] VITALS: Ht 167.6 cm; Wt 93.2 kg
[2019-04-07 10:58] LABS: BASOPHILS # (AUTO) 0.1 X10'3 (0-0.2); BASOPHILS % (AUTO) 1.1 % (0-1); EOSINOPHILS # (AUTO) 0.2 X10'3 (0-0.9); HEMATOCRIT 34.1 % (42.0-52.0); HEMOGLOBIN 11.6 g/dl (14.0-17.9); LYMPHOCYTES # (AUTO) 0.7 X10'3 (1.1-4.8); LYMPHOCYTES % (AUTO) 14.5 % (21-51); MEAN CORPUSCULAR HEMOGLOBIN 30.4 PG (27.0-31.0); MEAN CORPUSCULAR HGB CONC 34.1 g/dL (33.0-36.5); MEAN CORPUSCULAR VOLUME 89.2 FL (78-98); MEAN PLATELET VOLUME 7.8 FL (7.4-10.4); MONOCYTES # (AUTO) 0.4 X10'3 (0-0.9); MONOCYTES % (AUTO) 8.6 % (2-12); NEUTROPHILS # (AUTO) 3.7 X10'3 (1.8-7.7); NEUTROPHILS % (AUTO) 72.8 % (42-75); PLATELET COUNT 175 X10'3 (140-440); RED BLOOD COUNT 3.82 X10'6 (4.70-6.10); RED CELL DISTRIBUTION WIDTH 15.1 % (11.5-14.5); WHITE BLOOD COUNT 5.1 X10'3 (4.5-11.0)
[2019-04-07 11:05] LABS: ALANINE AMINOTRANSFERASE 49 U/L (12-78); ALBUMIN 3.1 G/DL (3.4-5.0); ALBUMIN/GLOBULIN RATIO 0.9 (1.1-1.5); ALKALINE PHOSPHATASE 62 IU/L (46-116); ANION GAP 4 (8-16); ASPARTATE AMINO TRANSFERASE 15 U/L (10-37); BILIRUBIN,TOTAL 0.8 MG/DL (0.1-1.0); BLOOD UREA NITROGEN 37 MG/DL (7-18); BUN/CREATININE RATIO 20.3 (5.4-32.0); CALCIUM 9.2 MG/DL (8.5-10.1); CHLORIDE 105 MMOL/L (99-107); CREATININE 1.82 MG/DL (0.60-1.10); GLUCOSE 60 MG/DL (70-104); POTASSIUM 4.7 MMOL/L (3.5-5.1); SODIUM 137 MMOL/L (135-145); TOTAL CARBON DIOXIDE 28.1 MMOL/L (24-32); TOTAL PROTEIN 6.4 G/DL (6.4-8.2); eGFR 37 ML/MIN
[2019-04-07 11:24] LABS: INR 3.5 INR
[2019-04-07 11:25] LABS: PARTIAL THROMBOPLASTIN TIME 40 SECONDS (22-32)
--- NOTE | 2019-04-07 11:26 | NUR ---
Pt. has DM. BG on labs 60. Pt. c/o feeling lightheaded. OJ given to pt. per Dr. Cruz.
[2019-04-07] MEDS ORDERED: MULT-1172 PO (12:14)
[2019-04-07] MEDS ORDERED: MAGN400C PO (12:16)
[2019-04-07] MEDS ORDERED: GLUC-131 PO (12:17)
[2019-04-07] MEDS ORDERED: furosemide 20MG tablet PO ONE (12:25)
[2019-04-07 12:39] LABS: D-DIMER 0.27 MG/L FEU (0-0.50)
[2019-04-07] MEDS ORDERED: FURO-150 PO (12:48)
[2019-04-07] MEDS ORDERED: POTA20TA19 PO (12:48)
[2019-04-07 12:49] VITALS: BP 156/63
--- NOTE | 2019-04-07 12:49 | NUR ---
RELIEVING RN FOR LUNCH, PT HONG PO MED WELL, DR CANO AT BEDSIDE TO REEVAL PT, PLAN TO DC HOME
== END 2019-04-07 13:30 | disposition home or self-care (01) ==
LOC: ER 10:22
DX: R60.9 Edema, unspecified (principal); R07.89 Other chest pain; R06.02 Shortness of breath; I11.0 Hypertensive heart disease with heart failure; I50.9 Heart failure, unspecified; I25.10 Atherosclerotic heart disease of native coronary artery without angina pectoris; K21.9 Gastro-esophageal reflux disease without esophagitis; E78.00 Pure hypercholesterolemia, unspecified; G89.29 Other chronic pain; Z86.718 Personal history of other venous thrombosis and embolism; Z95.1 Presence of aortocoronary bypass graft; Z79.82 Long term (current) use of aspirin; Z79.4 Long term (current) use of insulin; Z91.010 Allergy to peanuts
CPT/HCPCS: 36415; 71045; 80053; 83880; 84484; 85025; 85379; 85610; 85730; 93005; 99284

== ENCOUNTER 2019-06-11 10:13 | Emergency (ER) | payer MEDICARE ==
[~2019-06-11] VITALS: Ht 167.6 cm; Wt 90.9 kg
[~2019-06-11 10:13] MED LIST changes: +FURO-150 PO; +GLUC-131 PO; +MAGN400C PO; +MULT-1172 PO
[2019-06-11] MEDS ORDERED: aspirin 81mg tab.chew PO ONE (11:00)
[2019-06-11] MEDS ORDERED: ondansetron/PF 4mg/2ml inj IV ONE (11:15)
[2019-06-11] MEDS ORDERED: normal saline 1000ML IV soln IVB ONE (11:15)
[2019-06-11 11:26] LABS: BASOPHILS % (AUTO) 0.7 % (0-1); EOSINOPHILS # (AUTO) 0.5 X10'3 (0-0.9); HEMOGLOBIN 12.8 g/dl (14.0-17.9); LYMPHOCYTES % (AUTO) 16.4 % (21-51); MEAN CORPUSCULAR HEMOGLOBIN 29.1 PG (27.0-31.0); MEAN CORPUSCULAR HGB CONC 33.6 g/dL (33.0-36.5); MEAN CORPUSCULAR VOLUME 86.7 FL (78-98); MEAN PLATELET VOLUME 8.1 FL (7.4-10.4); MONOCYTES # (AUTO) 0.6 X10'3 (0-0.9); NEUTROPHILS % (AUTO) 65.9 % (42-75); PLATELET COUNT 174 X10'3 (140-440); RED BLOOD COUNT 4.39 X10'6 (4.70-6.10); RED CELL DISTRIBUTION WIDTH 15.3 % (11.5-14.5); WHITE BLOOD COUNT 6.1 X10'3 (4.5-11.0)
[2019-06-11 11:35] LABS: PARTIAL THROMBOPLASTIN TIME 40 SECONDS (22-32)
[2019-06-11 11:39] LABS: ALANINE AMINOTRANSFERASE 65 U/L (12-78); ALBUMIN 3.4 G/DL (3.4-5.0); ALKALINE PHOSPHATASE 75 IU/L (46-116); ANION GAP 6 (8-16); ASPARTATE AMINO TRANSFERASE 20 U/L (10-37); BLOOD UREA NITROGEN 45 MG/DL (7-18); BUN/CREATININE RATIO 18.2 (5.4-32.0); CALCIUM 8.9 MG/DL (8.5-10.1); CHLORIDE 102 MMOL/L (99-107); CREATININE 2.47 MG/DL (0.60-1.10); GLUCOSE 128 MG/DL (70-104); MAGNESIUM 2.2 MG/DL (1.5-2.4); POTASSIUM 5.6 MMOL/L (3.5-5.1); SODIUM 134 MMOL/L (135-145); TOTAL CARBON DIOXIDE 25.6 MMOL/L (24-32); TOTAL PROTEIN 6.8 G/DL (6.4-8.2); eGFR 26 ML/MIN
[2019-06-11] MEDS ORDERED: LANTUS SQ (11:47)
[2019-06-11] MEDS ORDERED: CARV-50 PO (11:47)
[2019-06-11] MEDS ORDERED: AMLO2.5T2 PO (11:47)
[2019-06-11] MEDS ORDERED: HYDR-4069 PO (11:47)
[2019-06-11] MEDS ORDERED: [UNRECOGNIZED DRUG - OTHER] TOP (11:53)
[2019-06-11] MEDS ORDERED: SEMA0.25 (11:53)
[2019-06-11] MEDS ORDERED: ATOR40TA PO (11:53)
[2019-06-11] MEDS ORDERED: ELEMENTAL MAGNESIUM PO (11:53)
[2019-06-11] MEDS ORDERED: COU2.5T PO (12:17)
[2019-06-11] MEDS ORDERED: COU5T PO (12:17)
[2019-06-11] MEDS ORDERED: CLOP75TA35 PO (12:22)
[2019-06-11] MEDS ORDERED: MAGN400C PO (12:30)
[2019-06-11] MEDS ORDERED: ONDA4TAB12 PO (13:05)
[2019-06-11 13:09] VITALS: BP 135/101
== END 2019-06-11 13:35 | disposition home or self-care (01) ==
LOC: ER 10:14
DX: R07.89 Other chest pain (principal); R53.1 Weakness; I25.10 Atherosclerotic heart disease of native coronary artery without angina pectoris; I11.0 Hypertensive heart disease with heart failure; I50.9 Heart failure, unspecified; E78.00 Pure hypercholesterolemia, unspecified; K21.9 Gastro-esophageal reflux disease without esophagitis; E11.9 Type 2 diabetes mellitus without complications; G89.29 Other chronic pain; F32.9 Major depressive disorder, single episode, unspecified; Z86.718 Personal history of other venous thrombosis and embolism; Z91.010 Allergy to peanuts; Z79.82 Long term (current) use of aspirin; Z79.4 Long term (current) use of insulin; Z79.01 Long term (current) use of anticoagulants; Z79.899 Other long term (current) drug therapy; Z98.61 Coronary angioplasty status; Z90.49 Acquired absence of other specified parts of digestive tract; Z95.1 Presence of aortocoronary bypass graft; Z98.890 Other specified postprocedural states
CPT/HCPCS: 36415; 71045; 80053; 82948; 83735; 83880; 84484; 85025; 85610; 85730; 93005; 96374; 99284; J2405; J7030; 96361

== ENCOUNTER 2020-04-03 20:45 | Inpatient (IN) | payer MEDICARE ==
[~2020-04-03] VITALS: Ht 167.6 cm; Wt 86.0 kg
[~2020-04-03 20:45] MED LIST changes: +AMLO2.5T2 PO; -AMLO5TAB4 PO; +ATOR40TA PO; -CLOP75TA15 PO; +CLOP75TA35 PO; +COU2.5T PO; -FURO-150 PO; +HYDR-4069 PO; -HYDR-4070 PO; -INSU100C10 SQ; +LANTUS SQ; -LANTUS SUBCUT; -MULT-785 PO; +ONDA4TAB12 PO; +SEMA0.25; +[UNRECOGNIZED DRUG - OTHER] TOP
[2020-04-03] MEDS ORDERED: aspirin 81mg tab.chew PO ONE (20:50)
--- NOTE | 2020-04-03 20:54 | NUR ---
PT TO XRAY
[2020-04-03] MEDS ORDERED: temazepam 15mg capsule PO PRN (21:00)
--- NOTE | 2020-04-03 21:13 | NUR ---
Pt under a great deal of stress and feels it's stress-related
[2020-04-03 21:19] LABS: BASOPHILS % (AUTO) 0.7 % (0-1); EOSINOPHILS # (AUTO) 0.3 X10'3 (0-0.9); EOSINOPHILS % (AUTO) 5.9 % (0-6); HEMATOCRIT 37.9 % (42.0-52.0); HEMOGLOBIN 12.8 g/dl (14.0-17.9); LYMPHOCYTES # (AUTO) 1.2 X10'3 (1.1-4.8); LYMPHOCYTES % (AUTO) 21.7 % (21-51); MEAN CORPUSCULAR HEMOGLOBIN 29.6 PG (27.0-31.0); MEAN CORPUSCULAR HGB CONC 33.7 g/dL (33.0-36.5); MEAN CORPUSCULAR VOLUME 88.1 FL (78-98); MEAN PLATELET VOLUME 7.6 FL (7.4-10.4); MONOCYTES # (AUTO) 0.7 X10'3 (0-0.9); MONOCYTES % (AUTO) 12.4 % (2-12); NEUTROPHILS # (AUTO) 3.3 X10'3 (1.8-7.7); NEUTROPHILS % (AUTO) 59.3 % (42-75); PLATELET COUNT 203 X10'3 (140-440); RED CELL DISTRIBUTION WIDTH 15.4 % (11.5-14.5); WHITE BLOOD COUNT 5.5 X10'3 (4.5-11.0)
[2020-04-03 21:24] LABS: PARTIAL THROMBOPLASTIN TIME 34 SECONDS (22-32)
[2020-04-03 21:26] LABS: ALANINE AMINOTRANSFERASE 74 U/L (12-78); ALBUMIN 3.1 G/DL (3.4-5.0); ALBUMIN/GLOBULIN RATIO 0.9 (1.1-1.5); ALKALINE PHOSPHATASE 72 IU/L (46-116); ANION GAP 8 (8-16); ASPARTATE AMINO TRANSFERASE 28 U/L (10-37); BILIRUBIN,TOTAL 0.9 MG/DL (0.1-1.0); BLOOD UREA NITROGEN 32 MG/DL (7-18); BUN/CREATININE RATIO 15.7 (5.4-32.0); CALCIUM 8.5 MG/DL (8.5-10.1); CHLORIDE 101 MMOL/L (99-107); CREATININE 2.04 MG/DL (0.60-1.10); GLUCOSE 259 MG/DL (70-104); POTASSIUM 4.5 MMOL/L (3.5-5.1); SODIUM 133 MMOL/L (135-145); TOTAL CARBON DIOXIDE 24.1 MMOL/L (24-32); TOTAL PROTEIN 6.6 G/DL (6.4-8.2); eGFR 32 ML/MIN
[2020-04-03 21:32] LABS: MAGNESIUM 2.3 MG/DL (1.5-2.4)
[2020-04-03] MEDS ORDERED: magnesium 2GM in 50ml NS 50 ML IV PRN (23:40)
[2020-04-03] MEDS ORDERED: ondansetron/PF 4mg/2ml inj IV PRN (23:40)
[2020-04-03] MEDS ORDERED: potassium Cl 20 mEq SR tablet PO PRN ×2 (23:40)
[2020-04-03] MEDS ORDERED: morphine 2 MG/ML inj. syringe IV PRN (23:40)
[2020-04-03] MEDS ORDERED: magnesium Cl slow-release 64mg tablet PO PRN (23:40)
[2020-04-03] MEDS ORDERED: magnesium 4gm in 100ml NS 100 ML IV PRN (23:40)
[2020-04-03] MEDS ORDERED: warfarin 2.5mg tablet PO SCH (23:40)
[2020-04-03] MEDS ORDERED: acetaminophen 325mg tablet PO PRN (23:40)
[2020-04-03] MEDS ORDERED: potassium CL 10mEq/100ml bag 100 ML IV PRN ×2 (23:40)
[2020-04-04 00:15] VITALS: BP 110/65
--- NOTE | 2020-04-04 00:25 | NUR ---
Re non-admin of Coumadin: Pt reported to RN that he already had taken his Coumadin earlier this evening prior to his arrival in ER
[2020-04-04 03:00] VITALS: BP 158/61
[2020-04-04 03:12] LABS: ANION GAP 8 (8-16); BLOOD UREA NITROGEN 28 MG/DL (7-18); BUN/CREATININE RATIO 16.1 (5.4-32.0); CALCIUM 8.5 MG/DL (8.5-10.1); CHLORIDE 104 MMOL/L (99-107); CREATININE 1.74 MG/DL (0.60-1.10); GLUCOSE 107 MG/DL (70-104); MAGNESIUM 2.2 MG/DL (1.5-2.4); POTASSIUM 4.1 MMOL/L (3.5-5.1); SODIUM 137 MMOL/L (135-145); TOTAL CARBON DIOXIDE 25.5 MMOL/L (24-32); eGFR 39 ML/MIN
[2020-04-04 03:13] LABS: ALBUMIN 3.2 G/DL (3.4-5.0); CHOL/HDL RATIO 2.7 (0.00-4.99); CHOLESTEROL 106 MG/DL (0-200); HDL CHOLESTEROL 40 MG/DL (35-60); LDL CHOLESTEROL 48 MG/DL (50-100); TRIGLYCERIDES 88 MG/DL (20-135)
--- NOTE | 2020-04-04 06:00 | NUR ---
Patient in room PCU 3018. I have received report from Sandra JEAN BAPTISTE and had the opportunity to ask questions and assume patient care.
--- NOTE | 2020-04-04 06:23 | NUR ---
Problems reprioritized. Patient report given, questions answered & plan of care reviewed with Selina JEAN BAPTISTE.
[2020-04-04] MEDS ORDERED: heparin, porcine 5000 units/ml vial SQ SCH (08:00)
[2020-04-04] MEDS ORDERED: hydrALAZINE 25 MG tablet PO SCH (08:00)
[2020-04-04] MEDS ORDERED: aspirin 81mg tab.chew PO SCH (08:00)
[2020-04-04] MEDS ORDERED: losartan 50mg tablet PO SCH (08:00)
[2020-04-04] MEDS ORDERED: carVEDilol 12.5mg tablet PO SCH (08:00)
[2020-04-04] MEDS ORDERED: K and/or MAG REPLACEMENT MC SCH (08:00)
[2020-04-04] MEDS ORDERED: clopidogrel 75mg tablet PO SCH (08:00)
[2020-04-04 08:44] LABS: EOSINOPHILS # (AUTO) 0.3 X10'3 (0-0.9); HEMATOCRIT 37.7 % (42.0-52.0); HEMOGLOBIN 12.6 g/dl (14.0-17.9); LYMPHOCYTES # (AUTO) 0.9 X10'3 (1.1-4.8); LYMPHOCYTES % (AUTO) 18.7 % (21-51); MEAN CORPUSCULAR HEMOGLOBIN 29.6 PG (27.0-31.0); MEAN CORPUSCULAR HGB CONC 33.4 g/dL (33.0-36.5); MEAN CORPUSCULAR VOLUME 88.7 FL (78-98); MEAN PLATELET VOLUME 7.8 FL (7.4-10.4); MONOCYTES # (AUTO) 0.5 X10'3 (0-0.9); MONOCYTES % (AUTO) 9.4 % (2-12); NEUTROPHILS # (AUTO) 3.1 X10'3 (1.8-7.7); NEUTROPHILS % (AUTO) 63.9 % (42-75); PLATELET COUNT 167 X10'3 (140-440); RED BLOOD COUNT 4.24 X10'6 (4.70-6.10); RED CELL DISTRIBUTION WIDTH 15.4 % (11.5-14.5); WHITE BLOOD COUNT 4.8 X10'3 (4.5-11.0)
--- NOTE | 2020-04-04 09:02 | NUR ---
PAGER ID: [phone] MESSAGE: [id number] Jyoti Garcia Pt. is a diabetic. May I order A1c and place on DM protocol? 12hr Trop pending. EKG unchanged. Just FYI. Marks 9350
--- NOTE | 2020-04-04 15:01 | NUR ---
Per MD orders, patient stable for discharge home. Discharge instructions reviewed with patient at bedside and all questions answered to patient satisfaction. No new prescriptions to call in. PIV discontinued; cannula intact. Tele monitoring discontinued. All belongings sent with patient. Ambulated to private vehicle accompanied by resource RN.
[2020-04-04] MEDS ORDERED: amLODIPine 5mg tablet PO SCH (21:00)
[2020-04-04] MEDS ORDERED: warfarin 5mg tablet PO SCH (21:00)
[2020-04-04] MEDS ORDERED: atorvastatin 20mg tablet PO SCH (21:00)
[2020-04-05] MEDS ORDERED: ISOS30TA6 PO (09:35)
--- NOTE | 2020-04-07 10:19 | NUR ---
Case management DC follow up: LMVM post DC status, CB questions, concerns
== END 2020-04-04 14:55 | disposition home or self-care (01) | DRG 391 ==
LOC: ER 20:45 → ED HOLD 23:36 → PCU 3S 04-04 00:10
PROVIDERS: ADMIT Internal Medicine; ATTEND Family Medicine
DX: K21.9 Gastro-esophageal reflux disease without esophagitis (principal); N17.0 Acute kidney failure with tubular necrosis; I13.0 Hypertensive heart and chronic kidney disease with heart failure and stage 1 through stage 4 chronic kidney disease, or unspecified chronic kidney disease; R07.89 Other chest pain; I25.119 Atherosclerotic heart disease of native coronary artery with unspecified angina pectoris; E78.00 Pure hypercholesterolemia, unspecified; E78.5 Hyperlipidemia, unspecified; F32.9 Major depressive disorder, single episode, unspecified; E11.22 Type 2 diabetes mellitus with diabetic chronic kidney disease; N18.9 Chronic kidney disease, unspecified; I50.9 Heart failure, unspecified; G89.29 Other chronic pain; Z79.01 Long term (current) use of anticoagulants; Z79.4 Long term (current) use of insulin; Z82.49 Family history of ischemic heart disease and other diseases of the circulatory system; Z83.3 Family history of diabetes mellitus; Z86.718 Personal history of other venous thrombosis and embolism; Z95.1 Presence of aortocoronary bypass graft; Z95.5 Presence of coronary angioplasty implant and graft; Z91.010 Allergy to peanuts; Z79.899 Other long term (current) drug therapy
CPT/HCPCS: 36415; 71045; 80048; 80053; 80061; 82948; 83735; 83880; 84484; 85025; 85610; 85730; 87081; 93005; 93306; 99285; G0378; J1644

== ENCOUNTER 2020-05-10 19:38 | Inpatient (IN) | payer MEDICARE ==
[~2020-05-10] VITALS: Ht 167.6 cm; Wt 86.0 kg
[~2020-05-10 19:38] MED LIST changes: -COU5T PO; -MAGN400C PO; -ONDA4TAB12 PO; -SEMA0.25; +WARF-113 PO; -[UNRECOGNIZED DRUG - OTHER] TOP
[2020-05-10 20:23] LABS: BASOPHILS # (AUTO) 0.1 X10'3 (0-0.2); BASOPHILS % (AUTO) 0.9 % (0-1); EOSINOPHILS # (AUTO) 0.4 X10'3 (0-0.9); EOSINOPHILS % (AUTO) 6.7 % (0-6); HEMATOCRIT 36.5 % (42.0-52.0); HEMOGLOBIN 12.3 g/dl (14.0-17.9); LYMPHOCYTES # (AUTO) 1.2 X10'3 (1.1-4.8); LYMPHOCYTES % (AUTO) 20.1 % (21-51); MEAN CORPUSCULAR HEMOGLOBIN 29.8 PG (27.0-31.0); MEAN CORPUSCULAR HGB CONC 33.7 g/dL (33.0-36.5); MEAN CORPUSCULAR VOLUME 88.3 FL (78-98); MEAN PLATELET VOLUME 7.5 FL (7.4-10.4); MONOCYTES # (AUTO) 0.5 X10'3 (0-0.9); MONOCYTES % (AUTO) 8.2 % (2-12); NEUTROPHILS # (AUTO) 3.9 X10'3 (1.8-7.7); NEUTROPHILS % (AUTO) 64.1 % (42-75); PLATELET COUNT 183 X10'3 (140-440); RED BLOOD COUNT 4.13 X10'6 (4.70-6.10); WHITE BLOOD COUNT 6.1 X10'3 (4.5-11.0)
[2020-05-10 20:34] LABS: ALANINE AMINOTRANSFERASE 62 U/L (12-78); ALBUMIN 2.9 G/DL (3.4-5.0); ALBUMIN/GLOBULIN RATIO 0.9 (1.1-1.5); ALKALINE PHOSPHATASE 65 IU/L (46-116); ANION GAP 6 (8-16); ASPARTATE AMINO TRANSFERASE 19 U/L (10-37); BILIRUBIN,TOTAL 0.6 MG/DL (0.1-1.0); BLOOD UREA NITROGEN 36 MG/DL (7-18); BUN/CREATININE RATIO 16.3 (5.4-32.0); CALCIUM 8.4 MG/DL (8.5-10.1); CHLORIDE 103 MMOL/L (99-107); CREATININE 2.21 MG/DL (0.60-1.10); GLUCOSE 274 MG/DL (70-104); POTASSIUM 4.6 MMOL/L (3.5-5.1); SODIUM 134 MMOL/L (135-145); TOTAL CARBON DIOXIDE 25.1 MMOL/L (24-32); TOTAL PROTEIN 6.2 G/DL (6.4-8.2); eGFR 29 ML/MIN
[2020-05-10] MEDS ORDERED: normal saline 1000ML IV soln IVB ONE (20:40)
[2020-05-10] MEDS ORDERED: nitroGLYCERIN 0.4mg SUBLingual tab SL PRN ×2 (20:55→22:30)
[2020-05-10] MEDS ORDERED: temazepam 15mg capsule PO PRN (21:00)
--- NOTE | 2020-05-10 21:02 | NUR ---
NITRO FOR CHEST PRESSURE ADMINISTERED. SBP 138, HR 65
[2020-05-10] MEDS ORDERED: nitroGLYCERIN 0.4mg/hour patch TD ONE (21:15)
[2020-05-10] MEDS: normal saline 1000ml 1,000 ML IV SCH (22:29)
[2020-05-10] MEDS ORDERED: magnesium Cl slow-release 64mg tablet PO PRN (22:30)
[2020-05-10] MEDS ORDERED: acetaminophen 325mg tablet PO PRN ×2 (22:30)
[2020-05-10] MEDS ORDERED: magnesium 4gm in 100ml NS 100 ML IV PRN (22:30)
[2020-05-10] MEDS ORDERED: potassium CL 10mEq/100ml bag 100 ML IV PRN ×2 (22:30)
[2020-05-10] MEDS ORDERED: potassium Cl 20 mEq SR tablet PO PRN ×2 (22:30)
[2020-05-10] MEDS ORDERED: regadenoson 0.4mg/5ml syringe IV ONE (22:30)
[2020-05-10] MEDS ORDERED: metoprolol tartrate 1mg/ml inj IV PRN (22:30)
[2020-05-10] MEDS ORDERED: morphine 2 MG/ML inj. syringe IV PRN (22:30)
[2020-05-10] MEDS ORDERED: HYDROcodone/acetaminophen 5mg/325mg tablet PO PRN (22:30)
[2020-05-10] MEDS ORDERED: mag hydrox/Alum hydrox/simeth 30ml oral suspension PO PRN (22:30)
[2020-05-10] MEDS ORDERED: ondansetron/PF 4mg/2ml inj IV PRN (22:30)
[2020-05-10] MEDS ORDERED: magnesium 2GM in 50ml NS 50 ML IV PRN (22:30)
[2020-05-10] MEDS ORDERED: aminophylline 250mg/10ml inj. IV PRN (22:30)
[2020-05-10] MEDS ORDERED: insulin Lispro (HumaLOG) vial - multi-dose SQ SCH (23:10)
[2020-05-10] MEDS ORDERED: dextrose 50%-water 50ml dispensing syringe IV PRN ×2 (23:10)
[2020-05-10] MEDS ORDERED: MESSAGE TO PHARMACY PO ONE (23:10)
[2020-05-10] MEDS ORDERED: glucagon, human recombinant 1mg kit SUBCUT PRN (23:10)
[2020-05-10] MEDS ORDERED: dextrose ORAL solution 15 GM/59 ML bottle PO PRN ×2 (23:10)
[2020-05-10] MEDS ORDERED: NORMAL SALINE IV ONE (23:55)
[2020-05-10] MEDS ORDERED: PHYTONADIONE IV ONE (23:55)
[2020-05-11] VITALS (21 sets, daily range): BP systolic 68–177; BP diastolic 60–80
--- NOTE | 2020-05-11 00:01 | NUR ---
NEW ORDERS FROM DR GUERRERO FOR 4 MG VITAMIN K IV NOW AND ANOTHER DOSE AT 0200. ALSO ORDERED PT/INR NOW AND AGAIN AT 0500. WILL WANT RESULTS BY O700
[2020-05-11 00:40] LABS: PARTIAL THROMBOPLASTIN TIME 36 SECONDS (22-32)
[2020-05-11] MEDS ORDERED: NORMAL SALINE IV ONE ×2 (02:00→06:35)
[2020-05-11] MEDS ORDERED: PHYTONADIONE IV ONE ×2 (02:00→06:35)
[2020-05-11 05:21] LABS: BASOPHILS % (AUTO) 0.6 % (0-1); EOSINOPHILS # (AUTO) 0.5 X10'3 (0-0.9); EOSINOPHILS % (AUTO) 8.6 % (0-6); HEMATOCRIT 38.5 % (42.0-52.0); HEMOGLOBIN 12.8 g/dl (14.0-17.9); LYMPHOCYTES # (AUTO) 1.1 X10'3 (1.1-4.8); LYMPHOCYTES % (AUTO) 20.7 % (21-51); MEAN CORPUSCULAR HEMOGLOBIN 29.2 PG (27.0-31.0); MEAN CORPUSCULAR HGB CONC 33.3 g/dL (33.0-36.5); MEAN CORPUSCULAR VOLUME 87.7 FL (78-98); MEAN PLATELET VOLUME 7.5 FL (7.4-10.4); MONOCYTES # (AUTO) 0.5 X10'3 (0-0.9); NEUTROPHILS # (AUTO) 3.3 X10'3 (1.8-7.7); NEUTROPHILS % (AUTO) 61.1 % (42-75); PLATELET COUNT 176 X10'3 (140-440); RED BLOOD COUNT 4.39 X10'6 (4.70-6.10); RED CELL DISTRIBUTION WIDTH 14.6 % (11.5-14.5); WHITE BLOOD COUNT 5.5 X10'3 (4.5-11.0)
[2020-05-11 05:38] LABS: ALANINE AMINOTRANSFERASE 55 U/L (12-78); ALBUMIN 2.7 G/DL (3.4-5.0); ALBUMIN/GLOBULIN RATIO 0.8 (1.1-1.5); ALKALINE PHOSPHATASE 64 IU/L (46-116); ANION GAP 8 (8-16); ASPARTATE AMINO TRANSFERASE 20 U/L (10-37); BILIRUBIN,TOTAL 0.7 MG/DL (0.1-1.0); BLOOD UREA NITROGEN 28 MG/DL (7-18); BUN/CREATININE RATIO 18.5 (5.4-32.0); CALCIUM 7.9 MG/DL (8.5-10.1); CHLORIDE 106 MMOL/L (99-107); CREATININE 1.51 MG/DL (0.60-1.10); GLUCOSE 92 MG/DL (70-104); MAGNESIUM 1.9 MG/DL (1.5-2.4); POTASSIUM 3.9 MMOL/L (3.5-5.1); SODIUM 139 MMOL/L (135-145); TOTAL CARBON DIOXIDE 25.5 MMOL/L (24-32); TOTAL PROTEIN 6.1 G/DL (6.4-8.2); eGFR 46 ML/MIN
[2020-05-11 06:20] LABS: PARTIAL THROMBOPLASTIN TIME 31 SECONDS (22-32)
--- NOTE | 2020-05-11 06:24 | NUR ---
Patient in room PCU 3028. I have received report from Maricel JEAN BAPTISTE and had the opportunity to ask questions and assume patient care.
--- NOTE | 2020-05-11 06:30 | NUR ---
Received call from Dr. Chun, reviewed INR over the phone and the doses of vit K that was given on NOC shift. Received orders to administer Vit K 4 mg IV one time and repeat INR in 1 hr.
[2020-05-11] MEDS ORDERED: phytonadione inj. 5 MG in normal saline 100ml IV soln 99.5 ML IV ONE (06:45)
[2020-05-11] MEDS: docusate sod 100mg capsule PO SCH ×2 (07:29→20:29)
[2020-05-11] MEDS: heparin, porcine 5000 units/ml vial SQ SCH ×2 (08:00→20:30)
[2020-05-11] MEDS: K and/or MAG REPLACEMENT MC SCH ×2 (08:00→20:00)
[2020-05-11] MEDS: acetylcysteine 200 MG/ml 4ml vial PO SCH ×2 (08:19→20:25)
--- NOTE | 2020-05-11 08:20 | NUR ---
Immidiately placed orders for vit K, got medication from pharmacy STAT and hung Vit K. Informed laborer shaft sinking and Dr. Chun. Lab also informed to obtain PT/INR at 0830. Also notified MD of creatinine level and received orders to give Mucomyst 600 mg po BID. Patient is prepped and ready to go.
[2020-05-11] MEDS ORDERED: pneumococcal 23-VAL P-sac vacc 25 mcg/0.5ml vial IMVAC ONE (10:00)
[2020-05-11] MEDS ORDERED: DULO20CA18 PO (10:25)
[2020-05-11] MEDS: normal saline 1000ml 1,000 ML IV SCH ×2 (10:26→20:35)
--- NOTE | 2020-05-11 11:15 | NUR ---
Patient left for livestock laborer at 1151 in stable condition.
[2020-05-11] MEDS ORDERED: LIDOcaine 1% (10mg/ml)w/preservative injection 20ml MDV ONE (11:37)
[2020-05-11] MEDS ORDERED: midazolam 2 mg/2 ml injection ONE (11:37)
[2020-05-11] MEDS ORDERED: fentaNYL/PF 50MCG/1 ML 2ML syringe ONE (11:37)
[2020-05-11] MEDS ORDERED: heparin 1,000unit/ml 10ml vial 10 ML ONE (11:38)
[2020-05-11] MEDS ORDERED: nitroGLYCERIN-Tridil 50MG/D5W 250 ML IV ONE (11:38)
[2020-05-11] MEDS ORDERED: iohexol 350MG/ML 100ml bottle IV ONE ×2 (11:38→12:31)
[2020-05-11] MEDS ORDERED: heparin 1,000 UNITS/NS 500ml 500 ML ONE (11:38)
[2020-05-11] MEDS ORDERED: iohexol 350 MG/ML 50ML vial IV ONE (11:38)
--- NOTE | 2020-05-11 13:10 | NUR ---
Returned from rn lab at 1310, site without s/sx of bleeding. Peripheral pulses strong. Pt. is flat. A/O X 4, denies pain. VSS. Will continue to monitor closely.
--- NOTE | 2020-05-11 15:17 | NUR ---
DM consult A1c 8.3, given written DM education handout with verbal review. Addendum: 05/11/20 at [address] Amended: Links added.
[2020-05-11 15:34] LABS: CHOLESTEROL 122 MG/DL (0-200); HDL CHOLESTEROL 41 MG/DL (35-60); LDL CHOLESTEROL 59 MG/DL (50-100); TRIGLYCERIDES 112 MG/DL (20-135)
--- NOTE | 2020-05-11 17:53 | NUR ---
patient is doing well since returning from tag and label cutter. R groin site is with a CD&I dressing with no s/sx of hematoma. Pt. denies pain. Pedal pulses palpable. Pt's blood pressure is stable. Patient is currently eating and in no distress.
--- NOTE | 2020-05-11 18:45 | NUR ---
Problems reprioritized. Patient report given, questions answered & plan of care reviewed with Nelli JEAN BAPTISTE. Pt. is eating, in no apparent distress. Dressing is CD&I and without hematoma present. Pt. thanked nurse for the care provided.
--- NOTE | 2020-05-11 18:45 | NUR ---
Patient in room PCU 3028. I have received report from MARKEL Roberts and had the opportunity to ask questions and assume patient care.
[2020-05-11] MEDS ORDERED: insulin glargine (Lantus) pen - multi-dose SQ SCH (21:00)
[2020-05-11] MEDS ORDERED: warfarin 5mg tablet PO SCH (21:00)
--- NOTE | 2020-05-11 21:58 | NUR ---
PAGER ID: [phone] MESSAGE: Patient Stefan Garcia in room 3028B is currently stating he normally takes 32 units of Lantus every night. May a one time order be placed for his home medication before his discharge tomorrow? [facility] Nelli [phone] Addendum: 05/11/20 at 2231 by Aidee Todd RN MD refused to continue patient's home medication Lantus dosage. has ordered that I follow hospital protocol for insulin coverage.
[2020-05-12 03:00] VITALS: BP 159/62
[2020-05-12 05:51] LABS: BASOPHILS % (AUTO) 0.7 % (0-1); EOSINOPHILS # (AUTO) 0.5 X10'3 (0-0.9); EOSINOPHILS % (AUTO) 7.9 % (0-6); HEMATOCRIT 39.8 % (42.0-52.0); HEMOGLOBIN 13.4 g/dl (14.0-17.9); LYMPHOCYTES # (AUTO) 1.1 X10'3 (1.1-4.8); LYMPHOCYTES % (AUTO) 17.9 % (21-51); MEAN CORPUSCULAR HEMOGLOBIN 29.5 PG (27.0-31.0); MEAN CORPUSCULAR HGB CONC 33.8 g/dL (33.0-36.5); MEAN CORPUSCULAR VOLUME 87.5 FL (78-98); MEAN PLATELET VOLUME 7.5 FL (7.4-10.4); MONOCYTES # (AUTO) 0.5 X10'3 (0-0.9); MONOCYTES % (AUTO) 7.5 % (2-12); NEUTROPHILS # (AUTO) 4.1 X10'3 (1.8-7.7); PLATELET COUNT 168 X10'3 (140-440); RED BLOOD COUNT 4.54 X10'6 (4.70-6.10); RED CELL DISTRIBUTION WIDTH 14.9 % (11.5-14.5); WHITE BLOOD COUNT 6.2 X10'3 (4.5-11.0)
[2020-05-12 05:59] LABS: ANION GAP 6 (8-16); BLOOD UREA NITROGEN 26 MG/DL (7-18); BUN/CREATININE RATIO 16.9 (5.4-32.0); CHLORIDE 107 MMOL/L (99-107); CREATININE 1.54 MG/DL (0.60-1.10); GLUCOSE 106 MG/DL (70-104); POTASSIUM 4.5 MMOL/L (3.5-5.1); SODIUM 138 MMOL/L (135-145); TOTAL CARBON DIOXIDE 25.1 MMOL/L (24-32)
[2020-05-12 06:00] LABS: ALANINE AMINOTRANSFERASE 56 U/L (12-78); ALBUMIN 2.7 G/DL (3.4-5.0); ALBUMIN/GLOBULIN RATIO 0.8 (1.1-1.5); ALKALINE PHOSPHATASE 72 IU/L (46-116); ASPARTATE AMINO TRANSFERASE 18 U/L (10-37); CALCIUM 8.1 MG/DL (8.5-10.1); TOTAL PROTEIN 6.1 G/DL (6.4-8.2); eGFR 45 ML/MIN
--- NOTE | 2020-05-12 06:22 | NUR ---
Patient in room PCU 3028. I have received report from CHING JEAN BAPTISTE and had the opportunity to ask questions and assume patient care.
--- NOTE | 2020-05-12 06:27 | NUR ---
Problems reprioritized. Patient report given, questions answered & plan of care reviewed with MARKEL Roberts.
[2020-05-12] MEDS: normal saline 1000ml 1,000 ML IV SCH (06:36)
[2020-05-12 07:00] VITALS: BP 146/72
--- NOTE | 2020-05-12 07:09 | NUR ---
Patient in room PCU 3028. I have received report from Nelli JEAN BAPTISTE and had the opportunity to ask questions and assume patient care.
--- NOTE | 2020-05-12 07:44 | NUR ---
PAGER ID: [phone] MESSAGE: [id number] Stefan Garcia, please address med rec. Thanks Alejandra JEAN BAPTISTE [phone]
[2020-05-12] MEDS ORDERED: isosorbide mononitrate 30mg tab.SR.24H PO SCH (08:00)
[2020-05-12] MEDS: K and/or MAG REPLACEMENT MC SCH (08:00)
[2020-05-12] MEDS: docusate sod 100mg capsule PO SCH (08:40)
[2020-05-12] MEDS: acetylcysteine 200 MG/ml 4ml vial PO SCH (08:42)
--- NOTE | 2020-05-12 09:13 | NUR ---
Ambulated patient 300 feet with no complaints of chest pain, sob or dizziness. No bleeding at groin site. Will continue to monitor.
[2020-05-12] MEDS ORDERED: aspirin 81mg tab.chew PO SCH (09:55)
[2020-05-12] MEDS ORDERED: clopidogrel 75mg tablet PO SCH (09:55)
[2020-05-12] MEDS ORDERED: carVEDilol 12.5mg tablet PO SCH ×2 (10:00→20:00)
[2020-05-12] MEDS ORDERED: losartan 50mg tablet PO SCH (10:04)
--- NOTE | 2020-05-12 10:13 | NUR ---
PAGER ID: [phone] MESSAGE: [id number] Stefan Garcia, Ambulated 300 feet without chest pain, dyspnea or dizziness. FRANCES Cortes did med since it was still incomplete. Alejandra JEAN BAPTISTE [phone]
[2020-05-12 11:00] VITALS: BP 146/65
[2020-05-12] MEDS ORDERED: ISOS30TA6 PO (11:33)
--- NOTE | 2020-05-12 12:19 | NUR ---
Called Dr. Garcia's office to make F/U appointment, but office is closed. Will try back.
--- NOTE | 2020-05-12 16:14 | NUR ---
Arranged appointment with Dr. Chun for 05/27/20 at 9:45 AM, called and informed patient.
--- NOTE | 2020-05-12 16:15 | NUR ---
Patient was cleared to discharge. VSS, pt afebrile. Education given regarding groin site. No bleeding/hematoma. Tele removed. PIV removed. Patient left in stable condition.
[2020-05-12] MEDS ORDERED: hydrALAZINE 25 MG tablet PO SCH (20:00)
[2020-05-12] MEDS ORDERED: atorvastatin 20mg tablet PO SCH (21:00)
[2020-05-12] MEDS ORDERED: insulin glargine (Lantus) pen - multi-dose SQ SCH (21:00)
[2020-05-12] MEDS ORDERED: amLODIPine 5mg tablet PO SCH (21:00)
[2020-05-13] MEDS ORDERED: multivitamins, therapeutics tablet PO SCH (08:00)
[2020-05-13] MEDS ORDERED: non-formulary drug (Gluc/Chon-Msm#2/C/D3/Mang/Born (Glucosamin-Chondroitin-Msm Tab) 1 EACH PO SCH (08:00)
[2020-05-13] MEDS ORDERED: LOSARTAN POTASSIUM PO SCH (08:00)
== END 2020-05-12 15:45 | disposition home or self-care (01) | DRG 286 ==
LOC: ER 19:40 → ED HOLD 22:29 → UNDOADMIN 05-11 00:21 → ED HOLD 05-11 00:21 → PCU 3S 05-11 00:23 → ED HOLD 05-11 00:23
PROVIDERS: ADMIT Internal Medicine; ATTEND Internal Medicine
PROC: 4A023N7 Measurement of Cardiac Sampling and Pressure, Left Heart, Percutaneous Approach (ICD-10-PCS; principal; 2020-05-11)
PROC: B2111ZZ Fluoroscopy of Multiple Coronary Arteries using Low Osmolar Contrast (ICD-10-PCS; 2020-05-11)
PROC: B2151ZZ Fluoroscopy of Left Heart using Low Osmolar Contrast (ICD-10-PCS; 2020-05-11)
PROC: B31N1ZZ Fluoroscopy of Other Upper Arteries using Low Osmolar Contrast (ICD-10-PCS; 2020-05-11)
PROC: B2131ZZ Fluoroscopy of Multiple Coronary Artery Bypass Grafts using Low Osmolar Contrast (ICD-10-PCS; 2020-05-11)
PROC: 3E0234Z Introduction of Serum, Toxoid and Vaccine into Muscle, Percutaneous Approach (ICD-10-PCS; 2020-05-11)
DX: I25.110 Atherosclerotic heart disease of native coronary artery with unstable angina pectoris (principal); N17.0 Acute kidney failure with tubular necrosis; I13.0 Hypertensive heart and chronic kidney disease with heart failure and stage 1 through stage 4 chronic kidney disease, or unspecified chronic kidney disease; I82.502 Chronic embolism and thrombosis of unspecified deep veins of left lower extremity; E11.22 Type 2 diabetes mellitus with diabetic chronic kidney disease; N18.3 Chronic kidney disease, stage 3 (moderate); E78.00 Pure hypercholesterolemia, unspecified; I48.0 Paroxysmal atrial fibrillation; E78.5 Hyperlipidemia, unspecified; G89.29 Other chronic pain; K21.9 Gastro-esophageal reflux disease without esophagitis; F32.9 Major depressive disorder, single episode, unspecified; I50.9 Heart failure, unspecified; Z79.01 Long term (current) use of anticoagulants; I25.2 Old myocardial infarction; Z79.02 Long term (current) use of antithrombotics/antiplatelets; Z79.4 Long term (current) use of insulin; Z79.82 Long term (current) use of aspirin; Z79.899 Other long term (current) drug therapy; Z82.49 Family history of ischemic heart disease and other diseases of the circulatory system; Z95.1 Presence of aortocoronary bypass graft; Z91.010 Allergy to peanuts; Z83.3 Family history of diabetes mellitus
CPT/HCPCS: 36415; 71045; 76937; 80053; 80061; 82948; 83036; 83735; 83880; 84484; 85025; 85610; 85730; 87081; 90732; 93005; 93459; 96360; 97116; 97161; 97530; 99152; 99153; 99285; A4620; A6258; C1760; C1769; G0378; J1644; J1815; J2001; J2250; J3010; J3430; J3490; J7030; Q9967

== ENCOUNTER 2020-07-29 19:06 | Emergency (ER) | payer MEDICARE ==
[~2020-07-29] VITALS: Ht 167.6 cm; Wt 85.7 kg
[~2020-07-29 19:06] MED LIST changes: -COU2.5T PO; +DULO20CA18 PO; +ISOS30TA6 PO
[2020-07-29 19:43] LABS: BASOPHILS # (AUTO) 0.1 X10'3 (0-0.2); BASOPHILS % (AUTO) 0.8 % (0-1); EOSINOPHILS # (AUTO) 0.3 X10'3 (0-0.9); HEMATOCRIT 33.6 % (42.0-52.0); HEMOGLOBIN 11.3 g/dl (14.0-17.9); LYMPHOCYTES # (AUTO) 1.2 X10'3 (1.1-4.8); LYMPHOCYTES % (AUTO) 17.2 % (21-51); MEAN CORPUSCULAR HEMOGLOBIN 30.2 PG (27.0-31.0); MEAN CORPUSCULAR HGB CONC 33.6 g/dL (33.0-36.5); MEAN PLATELET VOLUME 7.2 FL (7.4-10.4); MONOCYTES # (AUTO) 0.7 X10'3 (0-0.9); MONOCYTES % (AUTO) 10.5 % (2-12); NEUTROPHILS # (AUTO) 4.7 X10'3 (1.8-7.7); NEUTROPHILS % (AUTO) 67.5 % (42-75); PLATELET COUNT 191 X10'3 (140-440); RED BLOOD COUNT 3.74 X10'6 (4.70-6.10); RED CELL DISTRIBUTION WIDTH 15.2 % (11.5-14.5)
[2020-07-29 20:09] LABS: ALANINE AMINOTRANSFERASE 68 U/L (12-78); ALBUMIN 3.3 G/DL (3.4-5.0); ALBUMIN/GLOBULIN RATIO 0.9 (1.1-1.5); ALKALINE PHOSPHATASE 62 IU/L (46-116); ANION GAP 8 (8-16); ASPARTATE AMINO TRANSFERASE 30 U/L (10-37); BILIRUBIN,TOTAL 0.9 MG/DL (0.1-1.0); BLOOD UREA NITROGEN 38 MG/DL (7-18); BUN/CREATININE RATIO 19.2 (5.4-32.0); CALCIUM 8.4 MG/DL (8.5-10.1); CHLORIDE 104 MMOL/L (99-107); CREATININE 1.98 MG/DL (0.60-1.10); GLUCOSE 151 MG/DL (70-104); POTASSIUM 4.6 MMOL/L (3.5-5.1); SODIUM 137 MMOL/L (135-145); TOTAL CARBON DIOXIDE 24.6 MMOL/L (24-32); TOTAL PROTEIN 6.8 G/DL (6.4-8.2); eGFR 33 ML/MIN
[2020-07-29 21:15] LABS: TROPONIN I < 0.04 NG/ML (0.0-0.05)
[2020-07-29 21:47] VITALS: BP 156/72
== END 2020-07-29 21:52 | disposition home or self-care (01) ==
LOC: ER 19:06
DX: S80.11XA Contusion of right lower leg, initial encounter (principal); M79.604 Pain in right leg; R07.89 Other chest pain; I25.10 Atherosclerotic heart disease of native coronary artery without angina pectoris; I11.0 Hypertensive heart disease with heart failure; I50.9 Heart failure, unspecified; I10 Essential (primary) hypertension; K21.9 Gastro-esophageal reflux disease without esophagitis; E11.9 Type 2 diabetes mellitus without complications; G89.29 Other chronic pain; F32.9 Major depressive disorder, single episode, unspecified; Z86.19 Personal history of other infectious and parasitic diseases; Z86.718 Personal history of other venous thrombosis and embolism; Z90.89 Acquired absence of other organs; Z98.890 Other specified postprocedural states; Z91.010 Allergy to peanuts; Z79.82 Long term (current) use of aspirin; Z79.4 Long term (current) use of insulin; Z79.899 Other long term (current) drug therapy; X58.XXXA Exposure to other specified factors, initial encounter; Y93.89 Activity, other specified; Y92.89 Other specified places as the place of occurrence of the external cause; Y99.8 Other external cause status
CPT/HCPCS: 36415; 71046; 73700; 80053; 83880; 84484; 85025; 85610; 87040; 93005; 99285

== ENCOUNTER 2020-08-28 20:38 | Inpatient (IN) | payer MEDICARE ==
[~2020-08-28] VITALS: Ht 167.6 cm; Wt 85.9 kg
--- NOTE | 2020-08-28 18:30 | NUR ---
Patient in room PCU 3018. I have received report from COURTNEY JEAN BAPTISTE and had the opportunity to ask questions and assume patient care.
[2020-08-28 21:34] LABS: BASOPHILS % (AUTO) 0.7 % (0-1); EOSINOPHILS # (AUTO) 0.2 X10'3 (0-0.9); EOSINOPHILS % (AUTO) 3.1 % (0-6); HEMATOCRIT 35.8 % (42.0-52.0); HEMOGLOBIN 12.2 g/dl (14.0-17.9); LYMPHOCYTES # (AUTO) 0.9 X10'3 (1.1-4.8); LYMPHOCYTES % (AUTO) 13.7 % (21-51); MEAN CORPUSCULAR HEMOGLOBIN 30.4 PG (27.0-31.0); MEAN CORPUSCULAR VOLUME 89.5 FL (78-98); MEAN PLATELET VOLUME 7.7 FL (7.4-10.4); MONOCYTES # (AUTO) 0.6 X10'3 (0-0.9); MONOCYTES % (AUTO) 8.9 % (2-12); NEUTROPHILS # (AUTO) 4.7 X10'3 (1.8-7.7); NEUTROPHILS % (AUTO) 73.6 % (42-75); PLATELET COUNT 213 X10'3 (140-440); WHITE BLOOD COUNT 6.4 X10'3 (4.5-11.0)
[2020-08-28 21:59] LABS: ALANINE AMINOTRANSFERASE 69 U/L (12-78); ALBUMIN 3.1 G/DL (3.4-5.0); ALBUMIN/GLOBULIN RATIO 0.9 (1.1-1.5); ALKALINE PHOSPHATASE 75 IU/L (46-116); ANION GAP 10 (8-16); ASPARTATE AMINO TRANSFERASE 24 U/L (10-37); BILIRUBIN,TOTAL 0.6 MG/DL (0.1-1.0); BLOOD UREA NITROGEN 41 MG/DL (7-18); BUN/CREATININE RATIO 16.6 (5.4-32.0); CALCIUM 8.6 MG/DL (8.5-10.1); CHLORIDE 103 MMOL/L (99-107); CREATININE 2.47 MG/DL (0.60-1.10); GLUCOSE 306 MG/DL (70-104); POTASSIUM 4.4 MMOL/L (3.5-5.1); SODIUM 134 MMOL/L (135-145); TOTAL CARBON DIOXIDE 21.2 MMOL/L (24-32); TOTAL PROTEIN 6.6 G/DL (6.4-8.2); eGFR 26 ML/MIN
[2020-08-28] MEDS ORDERED: morphine 2 MG/ML inj. syringe IV PRN (23:55)
[2020-08-28] MEDS ORDERED: ondansetron/PF 4mg/2ml inj IV PRN (23:55)
[2020-08-28] MEDS ORDERED: magnesium Cl slow-release 64mg tablet PO PRN (23:55)
[2020-08-28] MEDS ORDERED: magnesium 2GM in 50ml NS 50 ML IV PRN (23:55)
[2020-08-28] MEDS ORDERED: magnesium 4gm in 100ml NS 100 ML IV PRN (23:55)
[2020-08-28] MEDS ORDERED: potassium CL 10mEq/100ml bag 100 ML IV PRN ×2 (23:55)
[2020-08-28] MEDS ORDERED: potassium Cl 20 mEq SR tablet PO PRN ×2 (23:55)
[2020-08-28] MEDS ORDERED: acetaminophen 325mg tablet PO PRN (23:55)
[2020-08-29] LABS: PARTIAL THROMBOPLASTIN TIME 36 SECONDS (22-32)
[2020-08-29] MEDS ORDERED: CARV-50 PO ×2 (00:05→12:46)
[2020-08-29] MEDS ORDERED: HYDR-3686 PO (00:05)
[2020-08-29] MEDS ORDERED: DULO-31 PO (00:05)
[2020-08-29] MEDS ORDERED: INSU100V9 SQ (00:05)
[2020-08-29] MEDS ORDERED: SEMA0.25 (00:07)
[2020-08-29] MEDS ORDERED: CLOP75TA15 PO (00:07)
[2020-08-29] MEDS ORDERED: AMA1T PO (00:07)
[2020-08-29 03:00] VITALS: BP 178/80
[2020-08-29 04:34] LABS: ALBUMIN 3.3 G/DL (3.4-5.0); ANION GAP 8 (8-16); BLOOD UREA NITROGEN 35 MG/DL (7-18); BUN/CREATININE RATIO 18.3 (5.4-32.0); CALCIUM 9.2 MG/DL (8.5-10.1); CHLORIDE 105 MMOL/L (99-107); CREATININE 1.91 MG/DL (0.60-1.10); GLUCOSE 200 MG/DL (70-104); POTASSIUM 3.9 MMOL/L (3.5-5.1); SODIUM 137 MMOL/L (135-145); TOTAL CARBON DIOXIDE 23.8 MMOL/L (24-32); eGFR 35 ML/MIN
[2020-08-29 04:37] LABS: MAGNESIUM 2.3 MG/DL (1.5-2.4)
--- NOTE | 2020-08-29 04:40 | NUR ---
3027A - Stefan Garcia 75/M - Patient BP 178/80 requesting prn BP medication or continuation or early dose of home medication. Patient takes amlodipine 2.5 HS, Coreg 12.5 mg bid. Patient had PM meds. [id number] Doyle -- Discussed patient situation with Dr. Smyth. Doctor stated she will review med rec and for me to place medication orders and admin patient Coreg now. Addendum: 08/29/20 at 0445 by Matt Mcginnis RN ordered patient coreg 12.5 mg bid per patient med rec. Will admin early per Dr. cantu.
[2020-08-29 05:19] LABS: BASOPHILS % (AUTO) 0.6 % (0-1); EOSINOPHILS # (AUTO) 0.3 X10'3 (0-0.9); EOSINOPHILS % (AUTO) 5.6 % (0-6); HEMATOCRIT 38.6 % (42.0-52.0); LYMPHOCYTES % (AUTO) 20.5 % (21-51); MEAN CORPUSCULAR HEMOGLOBIN 29.6 PG (27.0-31.0); MEAN CORPUSCULAR HGB CONC 33.6 g/dL (33.0-36.5); MEAN CORPUSCULAR VOLUME 88.1 FL (78-98); MEAN PLATELET VOLUME 7.7 FL (7.4-10.4); MONOCYTES # (AUTO) 0.6 X10'3 (0-0.9); MONOCYTES % (AUTO) 12.3 % (2-12); NEUTROPHILS # (AUTO) 3.1 X10'3 (1.8-7.7); PLATELET COUNT 205 X10'3 (140-440); RED BLOOD COUNT 4.38 X10'6 (4.70-6.10); RED CELL DISTRIBUTION WIDTH 14.8 % (11.5-14.5)
[2020-08-29] MEDS ORDERED: carVEDilol 12.5mg tablet PO ONE (05:30)
[2020-08-29] MEDS: carVEDilol 12.5mg tablet PO SCH ×2 (05:38→08:14)
[2020-08-29 06:00] VITALS: BP 165/78
--- NOTE | 2020-08-29 06:25 | NUR ---
Problems reprioritized. Patient report given, questions answered & plan of care reviewed with PARKER JEAN BAPTISTE.
[2020-08-29] MEDS ORDERED: glucagon, human recombinant 1mg kit SUBCUT PRN ×2 (06:30→07:25)
[2020-08-29] MEDS ORDERED: MESSAGE TO PHARMACY PO ONE ×2 (06:30→07:25)
[2020-08-29] MEDS ORDERED: dextrose ORAL solution 15 GM/59 ML bottle PO PRN ×4 (06:30→07:25)
[2020-08-29] MEDS ORDERED: dextrose 50%-water 50ml dispensing syringe IV PRN ×4 (06:30→07:25)
--- NOTE | 2020-08-29 06:37 | NUR ---
Patient in room PCU 3027. I have received report from Doyle JEAN BAPTISTE and had the opportunity to ask questions and assume patient care.
[2020-08-29 07:18] LABS: HEMOGLOBIN A1C 7.2 % (4.5-6.2)
[2020-08-29] MEDS ORDERED: insulin Lispro (HumaLOG) vial - multi-dose SQ SCH (07:25)
[2020-08-29] MEDS ORDERED: carVEDilol 12.5mg tablet PO SCH (08:00)
[2020-08-29] MEDS ORDERED: duloxetine 30mg CAPSULE.DR PO SCH (08:00)
[2020-08-29] MEDS ORDERED: aspirin 81mg tablet.DR PO SCH (08:00)
[2020-08-29] MEDS ORDERED: heparin, porcine 5000 units/ml vial SQ SCH (08:00)
[2020-08-29] MEDS ORDERED: warfarin 5mg tablet PO SCH ×2 (08:00→21:00)
[2020-08-29] MEDS ORDERED: amLODIPine 5mg tablet PO SCH (08:00)
[2020-08-29] MEDS ORDERED: non-formulary drug (Gluc/Chon-Msm#2/C/D3/Mang/Born (Glucosamin-Chondroitin-Msm Tab) 1 EACH PO SCH (08:00)
[2020-08-29] MEDS ORDERED: K and/or MAG REPLACEMENT MC SCH (08:00)
[2020-08-29] MEDS ORDERED: multivitamins, therapeutics tablet PO SCH (08:00)
[2020-08-29] MEDS ORDERED: losartan 50mg tablet PO SCH (08:00)
[2020-08-29] MEDS ORDERED: hydrOXYzine 25 MG tablet PO SCH (08:00)
[2020-08-29] MEDS ORDERED: isosorbide mononitrate 30mg tab.SR.24H PO SCH (08:00)
[2020-08-29] MEDS: insulin Lispro (HumaLOG) vial - multi-dose SQ SCH ×2 (08:26→13:19)
[2020-08-29 11:00] VITALS: BP 155/69
[2020-08-29] MEDS ORDERED: RANO500T3 PO (12:46)
--- NOTE | 2020-08-29 12:48 | NUR ---
Patient in room PCU 3027. I have received report from MARKEL CANALES and had the opportunity to ask questions and assume patient care.
[2020-08-29] MEDS ORDERED: NITR0.4T51 SL (12:49)
--- NOTE | 2020-08-29 12:51 | NUR ---
Problems reprioritized. Patient report given, questions answered & plan of care reviewed with Suzanne JEAN BAPTISTE.
--- NOTE | 2020-08-29 13:35 | NUR ---
Patient heart rate in the high 40's- 50's. Assessed patient and he is resting with eyes closed, respirations even and unlabored. Woke patient and he denies any complaints. Dr. Martinez notified.
--- NOTE | 2020-08-29 14:04 | NUR ---
PATIENT HR REMAINS IN THE 40'S 45-47. PATIENT SLEEPING AND APPEARS COMFORTABLE. EASILY AWAKENS AND HAS NO COMPLAINTS. DR SANTILLAN NOTIFIED. PAGER:[phone] MESSAGE: [id number]- ELIZABETH PLEITEZ- PATIENT HR STILL IN THE 40'S. HE IS SLEEPING. WHEN WAKEN HE HAS NO COMPLAINTS. GETS COREG 12.5 BID, COZAAR 100MG DAILY, NORVASC 10MG DAILY, IMDUR 60MG DAILY- [facility] 8291
--- NOTE | 2020-08-29 14:21 | NUR ---
RECEIVED CALL BACK FROM DR SANTILLAN. DR SANTILLAN OK FOR PATIENT TO DC PATIENT IS ASYMPTOMATIC. PATIENT WAS TO BE DC'D WITH NEW ORDERS TO TAKE COREG 12.5MG TWO TABLETS BID HOWEVER DR SANTILLAN HAS ORDERED THAT PATIENT NOW TO TAKE ONLY ONE TABLE BID. [facility] WAS CALLED AND ORDER CHANGED. PATIENT NOTIFIED OF CHANGES.
--- NOTE | 2020-08-29 14:26 | NUR ---
I AGREE WITH PREVIOUS RNPRAKER'S ASSESSMENT.
--- NOTE | 2020-08-29 15:18 | NUR ---
Discussed with patient discharge instructions and new prescriptions as well as changes to prescriptions. Patient was instructed by Dr. Martinez to take coreg 12.5 mg 2 tablets BID but due to his heart rate being in the 40's that Dr. Martinez wanted to change it back to Coreg 12.5 mg 1 tablet BID. Mayte was notified of the changes. Patient verbalizes understanding of teaching.
--- NOTE | 2020-08-29 15:43 | NUR ---
Patient alert and oriented, able to ambulate to and from bathroom with no complaints. Patient son in lobby here to pick him up. Patient dc'd via wheelchair accompanied by VIPUL Joyce.
[2020-08-29] MEDS ORDERED: atorvastatin 20mg tablet PO SCH (21:00)
[2020-08-29] MEDS ORDERED: insulin glargine (Lantus) pen - multi-dose SQ SCH ×2 (21:00)
--- NOTE | 2020-09-01 10:11 | NUR ---
Case management DC follow up: LM/VM re post DC status w/son Sudhakar. Main number for pt is non-working
== END 2020-08-29 15:47 | disposition home or self-care (01) | DRG 302 ==
LOC: ER 20:39 → ED HOLD 23:55 → PCU 3S 08-29 02:42
PROVIDERS: ADMIT Internal Medicine; ATTEND Family Medicine
DX: I25.110 Atherosclerotic heart disease of native coronary artery with unstable angina pectoris (principal); N17.0 Acute kidney failure with tubular necrosis; I11.0 Hypertensive heart disease with heart failure; E78.00 Pure hypercholesterolemia, unspecified; K21.9 Gastro-esophageal reflux disease without esophagitis; E11.9 Type 2 diabetes mellitus without complications; G89.29 Other chronic pain; I50.9 Heart failure, unspecified; F32.9 Major depressive disorder, single episode, unspecified; E78.5 Hyperlipidemia, unspecified; N28.9 Disorder of kidney and ureter, unspecified; Z95.1 Presence of aortocoronary bypass graft; Z91.010 Allergy to peanuts; Z82.49 Family history of ischemic heart disease and other diseases of the circulatory system; Z83.3 Family history of diabetes mellitus; Z83.42 Family history of familial hypercholesterolemia; Z86.718 Personal history of other venous thrombosis and embolism; Z79.899 Other long term (current) drug therapy; Z79.4 Long term (current) use of insulin; Z79.82 Long term (current) use of aspirin; Z79.01 Long term (current) use of anticoagulants; Z95.5 Presence of coronary angioplasty implant and graft
CPT/HCPCS: 36415; 71045; 80048; 80053; 82948; 83036; 83735; 83880; 84484; 85025; 85610; 85730; 87081; 93005; 93306; 93308; 99285; G0378; J1644; J1815; J2270; Q0177

== ENCOUNTER 2020-11-05 09:10 | Observation (INO) | payer MEDICARE ==
[~2020-11-05] VITALS: Ht 167.6 cm; Wt 82.9 kg
[~2020-11-05 09:10] MED LIST changes: +AMA1T PO; +CLOP75TA15 PO; -CLOP75TA35 PO; +DULO-31 PO; -DULO20CA18 PO; +HYDR-3686 PO; -HYDR-4069 PO; +INSU100V9 SQ; -LANTUS SQ; +RANO500T3 PO; +SEMA0.25
[2020-11-05 10:43] LABS: BASOPHILS # (AUTO) 0.1 X10'3 (0-0.2); BASOPHILS % (AUTO) 0.9 % (0-1); EOSINOPHILS # (AUTO) 0.7 X10'3 (0-0.9); EOSINOPHILS % (AUTO) 9.6 % (0-6); HEMATOCRIT 41.7 % (42.0-52.0); HEMOGLOBIN 14.1 g/dl (14.0-17.9); LYMPHOCYTES # (AUTO) 1.2 X10'3 (1.1-4.8); LYMPHOCYTES % (AUTO) 16.9 % (21-51); MEAN CORPUSCULAR HEMOGLOBIN 28.7 PG (27.0-31.0); MEAN CORPUSCULAR HGB CONC 33.7 g/dL (33.0-36.5); MEAN CORPUSCULAR VOLUME 85.2 FL (78-98); MONOCYTES # (AUTO) 0.6 X10'3 (0-0.9); MONOCYTES % (AUTO) 9.1 % (2-12); NEUTROPHILS # (AUTO) 4.4 X10'3 (1.8-7.7); NEUTROPHILS % (AUTO) 63.5 % (42-75); PLATELET COUNT 217 X10'3 (140-440); RED BLOOD COUNT 4.89 X10'6 (4.70-6.10); RED CELL DISTRIBUTION WIDTH 14.8 % (11.5-14.5); WHITE BLOOD COUNT 6.9 X10'3 (4.5-11.0)
[2020-11-05 10:55] LABS: ALBUMIN 2.9 G/DL (3.4-5.0); ANION GAP 7 (8-16); BLOOD UREA NITROGEN 37 MG/DL (7-18); BUN/CREATININE RATIO 16.8 (5.4-32.0); CALCIUM 8.7 MG/DL (8.5-10.1); CHLORIDE 93 MMOL/L (99-107); POTASSIUM 5.9 MMOL/L (3.5-5.1); SODIUM 124 MMOL/L (135-145); TOTAL CARBON DIOXIDE 23.9 MMOL/L (24-32); TROPONIN I < 0.04 NG/ML (0.0-0.05); eGFR 29 ML/MIN
[2020-11-05 10:56] LABS: GLUCOSE 545 MG/DL (70-104)
[2020-11-05] MEDS ORDERED: normal saline 1000ml 1,000 ML IV ONE (11:15)
[2020-11-05] MEDS ORDERED: HYDROcodone/acetaminophen 5mg/325mg tablet PO PRN (12:50)
[2020-11-05] MEDS ORDERED: magnesium Cl slow-release 64mg tablet PO PRN (12:50)
[2020-11-05] MEDS ORDERED: potassium Cl 20 mEq SR tablet PO PRN ×2 (12:50)
[2020-11-05] MEDS ORDERED: magnesium 2GM in 50ml NS 50 ML IV PRN (12:50)
[2020-11-05] MEDS ORDERED: magnesium 4gm in 100ml NS 100 ML IV PRN (12:50)
[2020-11-05] MEDS ORDERED: potassium CL 10mEq/100ml bag 100 ML IV PRN ×2 (12:50)
[2020-11-05] MEDS ORDERED: HYDR100T27 PO (13:35)
[2020-11-05] MEDS ORDERED: NITR0.4T51 PO (13:35)
[2020-11-05] MEDS ORDERED: AMLO10TA PO (13:35)
[2020-11-05] MEDS ORDERED: CARV12.549 PO (13:36)
--- NOTE | 2020-11-05 15:05 | NUR ---
RECD PT FROM ER. ALERT AND ORIENTED. VSS
[2020-11-05 15:39] VITALS: BP 157/85
--- NOTE | 2020-11-05 16:01 | NUR ---
PAGED DAVID RE: PAGER ID: [phone] MESSAGE: ELIZABTEH PLEITEZ. DO YOU WANT TO PLACE PT ON HYPOGLYCEMIC PROTOCOL? [facility] SAMANTHA [phone]
[2020-11-05] MEDS ORDERED: MESSAGE TO PHARMACY PO ONE (16:20)
[2020-11-05] MEDS ORDERED: glucagon, human recombinant 1mg kit SUBCUT PRN (16:20)
[2020-11-05] MEDS ORDERED: dextrose 50%-water 50ml dispensing syringe IV PRN ×2 (16:20)
[2020-11-05] MEDS ORDERED: dextrose ORAL solution 15 GM/59 ML bottle PO PRN ×2 (16:20)
[2020-11-05 17:07] LABS: HEMOGLOBIN A1C 10.3 % (4.5-6.2)
--- NOTE | 2020-11-05 18:47 | NUR ---
Problems reprioritized. Patient report given, questions answered & plan of care reviewed with JENARO JEAN BAPTISTE.
[2020-11-05 19:00] VITALS: BP 166/84
[2020-11-05] MEDS ORDERED: warfarin 5mg tablet PO SCH (19:10)
[2020-11-05] MEDS ORDERED: nitroGLYCERIN 0.4mg SUBLingual tab SL PRN (19:10)
[2020-11-05] MEDS: docusate sod 100mg capsule PO SCH (19:32)
[2020-11-05] MEDS: normal saline 1000ml 1,000 ML IV SCH (19:32)
[2020-11-05] MEDS: ranolazine 500mg SR tablet (Q12H) PO SCH (19:32)
[2020-11-05] MEDS: carVEDilol 12.5mg tablet PO SCH (19:33)
[2020-11-05] MEDS: insulin Lispro (HumaLOG) vial - multi-dose SQ SCH (19:51)
[2020-11-05] MEDS: insulin glargine (Lantus) pen - multi-dose SQ SCH (19:52)
[2020-11-05] MEDS: K and/or MAG REPLACEMENT MC SCH (20:00)
[2020-11-05] MEDS ORDERED: heparin, porcine 5000 units/ml vial SQ SCH (20:00)
[2020-11-05] MEDS: atorvastatin 20mg tablet PO SCH (21:25)
[2020-11-05] MEDS: hydrALAZINE 25 MG tablet PO SCH (21:25)
[2020-11-05] MEDS: duloxetine 30mg CAPSULE.DR PO SCH (21:27)
[2020-11-05] MEDS: clopidogrel 75mg tablet PO SCH (21:27)
[2020-11-05 22:00] VITALS: BP 129/67
[2020-11-06 02:00] VITALS: BP 166/76
[2020-11-06 06:00] VITALS: BP 203/84
[2020-11-06 07:30] LABS: BASOPHILS % (AUTO) 0.8 % (0-1); EOSINOPHILS # (AUTO) 0.7 X10'3 (0-0.9); EOSINOPHILS % (AUTO) 13.8 % (0-6); HEMOGLOBIN 13.7 g/dl (14.0-17.9); LYMPHOCYTES % (AUTO) 19.7 % (21-51); MEAN CORPUSCULAR HEMOGLOBIN 28.8 PG (27.0-31.0); MEAN CORPUSCULAR HGB CONC 34.2 g/dL (33.0-36.5); MEAN CORPUSCULAR VOLUME 84.3 FL (78-98); MEAN PLATELET VOLUME 7.8 FL (7.4-10.4); MONOCYTES # (AUTO) 0.4 X10'3 (0-0.9); MONOCYTES % (AUTO) 7.2 % (2-12); NEUTROPHILS # (AUTO) 2.9 X10'3 (1.8-7.7); NEUTROPHILS % (AUTO) 58.5 % (42-75); PLATELET COUNT 190 X10'3 (140-440); RED BLOOD COUNT 4.75 X10'6 (4.70-6.10); RED CELL DISTRIBUTION WIDTH 14.8 % (11.5-14.5)
[2020-11-06] MEDS: aspirin 81mg tab.chew PO SCH (07:39)
[2020-11-06] MEDS: duloxetine 30mg CAPSULE.DR PO SCH (07:41)
[2020-11-06] MEDS: hydrALAZINE 25 MG tablet PO SCH ×3 (07:41→20:29)
[2020-11-06] MEDS: docusate sod 100mg capsule PO SCH ×2 (07:41→20:28)
[2020-11-06] MEDS: losartan 50mg tablet PO SCH (07:42)
[2020-11-06] MEDS: isosorbide mononitrate 30mg tab.SR.24H PO SCH (07:42)
[2020-11-06] MEDS: amLODIPine 5mg tablet PO SCH (07:43)
[2020-11-06] MEDS: clopidogrel 75mg tablet PO SCH (07:43)
[2020-11-06] MEDS: carVEDilol 12.5mg tablet PO SCH ×2 (07:44→20:28)
[2020-11-06] MEDS: ranolazine 500mg SR tablet (Q12H) PO SCH ×2 (07:44→20:28)
[2020-11-06 07:49] LABS: ALBUMIN 2.4 G/DL (3.4-5.0); ANION GAP 8 (8-16); BLOOD UREA NITROGEN 31 MG/DL (7-18); BUN/CREATININE RATIO 18.9 (5.4-32.0); CALCIUM 8.1 MG/DL (8.5-10.1); CHLORIDE 103 MMOL/L (99-107); CHOL/HDL RATIO 3.7 (0.00-4.99); CHOLESTEROL 134 MG/DL (0-200); CREATININE 1.64 MG/DL (0.60-1.10); GLUCOSE 241 MG/DL (70-104); HDL CHOLESTEROL 36 MG/DL (35-60); LDL CHOLESTEROL 71 MG/DL (50-100); MAGNESIUM 2.6 MG/DL (1.5-2.4); SODIUM 133 MMOL/L (135-145); TOTAL CARBON DIOXIDE 21.8 MMOL/L (24-32); TRIGLYCERIDES 218 MG/DL (20-135); eGFR 41 ML/MIN
[2020-11-06 07:52] LABS: POTASSIUM 5.3 MMOL/L (3.5-5.1)
[2020-11-06] MEDS: K and/or MAG REPLACEMENT MC SCH ×2 (08:00→20:00)
[2020-11-06] MEDS: insulin Lispro (HumaLOG) vial - multi-dose SQ SCH ×3 (08:56→19:08)
[2020-11-06 11:00] VITALS: BP 110/65
[2020-11-06 15:00] VITALS: BP 119/53
--- NOTE | 2020-11-06 15:47 | NUR ---
Malnutrition/DM consult, Hgb A1c 10.3%, prior A1c 8.3 last April and at that time received written and verbal DM education. Per H&P pt facing financial stressors and has not been able to afford medication or take them for 1-2 weeks and not taken lantus for 2 weeks or glimepiride for last week, presented to ED with c/o "feeling run down" and having to go to the bathroom multiple times per night. Reports weight loss of 11 lbs over past week and a half. Met pt at bedside and given written DM education handout, confirmed that he has been out of DM meds d/t finances. Reports UBW at 187-192 lbs, current reported weight 176. Need new scaled weight to confirm weight loss, notified RN of needing new weight. Does not appears to have fat or muscle wasting; appears well nourished. Addendum: 11/06/20 at [address] Amended: Links added.
[2020-11-06] MEDS: normal saline 1000ml 1,000 ML IV SCH (17:41)
[2020-11-06 18:00] VITALS: BP 129/62
[2020-11-06] MEDS: atorvastatin 20mg tablet PO SCH (20:29)
--- NOTE | 2020-11-06 20:30 | NUR ---
Patient in room PCU 3025. I have received report from Samantha JEAN BAPTISTE and had the opportunity to ask questions and assume patient care.
[2020-11-06] MEDS: insulin glargine (Lantus) pen - multi-dose SQ SCH (20:34)
[2020-11-06] MEDS ORDERED: warfarin 5mg tablet PO SCH (21:00)
[2020-11-06 22:00] VITALS: BP 138/60
[2020-11-07 02:00] VITALS: BP 143/68
[2020-11-07 06:00] VITALS: BP 137/82
--- NOTE | 2020-11-07 06:17 | NUR ---
Problems reprioritized. Patient report given, questions answered & plan of care reviewed with DALLIN JEAN BAPTISTE.
--- NOTE | 2020-11-07 06:34 | NUR ---
Patient in room PCU 3022A. I have received report from MARKEL CAMEJO and had the opportunity to ask questions and assume patient care.
[2020-11-07 07:19] LABS: BASOPHILS % (AUTO) 0.5 % (0-1); EOSINOPHILS # (AUTO) 0.7 X10'3 (0-0.9); EOSINOPHILS % (AUTO) 12.5 % (0-6); HEMATOCRIT 39.5 % (42.0-52.0); HEMOGLOBIN 13.3 g/dl (14.0-17.9); LYMPHOCYTES # (AUTO) 1.1 X10'3 (1.1-4.8); LYMPHOCYTES % (AUTO) 20.2 % (21-51); MEAN CORPUSCULAR HEMOGLOBIN 28.4 PG (27.0-31.0); MEAN CORPUSCULAR HGB CONC 33.5 g/dL (33.0-36.5); MEAN CORPUSCULAR VOLUME 84.6 FL (78-98); MONOCYTES # (AUTO) 0.5 X10'3 (0-0.9); MONOCYTES % (AUTO) 9.9 % (2-12); NEUTROPHILS % (AUTO) 56.9 % (42-75); PLATELET COUNT 184 X10'3 (140-440); RED BLOOD COUNT 4.67 X10'6 (4.70-6.10); RED CELL DISTRIBUTION WIDTH 14.8 % (11.5-14.5); WHITE BLOOD COUNT 5.3 X10'3 (4.5-11.0)
[2020-11-07 07:38] LABS: ALBUMIN 2.4 G/DL (3.4-5.0); ANION GAP 7 (8-16); BLOOD UREA NITROGEN 35 MG/DL (7-18); BUN/CREATININE RATIO 19.3 (5.4-32.0); CALCIUM 8.3 MG/DL (8.5-10.1); CHLORIDE 102 MMOL/L (99-107); CREATININE 1.81 MG/DL (0.60-1.10); GLUCOSE 232 MG/DL (70-104); MAGNESIUM 1.9 MG/DL (1.5-2.4); SODIUM 133 MMOL/L (135-145); TOTAL CARBON DIOXIDE 24.2 MMOL/L (24-32); eGFR 37 ML/MIN
[2020-11-07] MEDS: insulin Lispro (HumaLOG) vial - multi-dose SQ SCH (09:27)
[2020-11-07] MEDS: ranolazine 500mg SR tablet (Q12H) PO SCH (09:30)
[2020-11-07] MEDS: aspirin 81mg tab.chew PO SCH (09:30)
[2020-11-07] MEDS: carVEDilol 12.5mg tablet PO SCH (09:30)
[2020-11-07] MEDS: docusate sod 100mg capsule PO SCH (09:30)
[2020-11-07] MEDS: clopidogrel 75mg tablet PO SCH (09:31)
[2020-11-07] MEDS: duloxetine 30mg CAPSULE.DR PO SCH (09:31)
[2020-11-07] MEDS: amLODIPine 5mg tablet PO SCH (09:31)
[2020-11-07] MEDS: isosorbide mononitrate 30mg tab.SR.24H PO SCH (09:31)
[2020-11-07] MEDS: hydrALAZINE 25 MG tablet PO SCH (09:32)
[2020-11-07] MEDS: losartan 50mg tablet PO SCH (09:32)
[2020-11-07 09:34] VITALS: BP 144/70
--- NOTE | 2020-11-07 09:35 | NUR ---
asked by primary Rn Kristal to admin am meds
[2020-11-07 11:00] VITALS: BP 147/70
--- NOTE | 2020-11-07 13:42 | NUR ---
PATIENT STABLE AND APPROPRIATE FOR DISCHARGE, TELE REMOVED, IV TAKEN OUT, EDUCATION GIVEN, ALL BELONGINGS SENT WITH PATIENT, PATIENT TAKEN TO PARKING LOT TO PERSONAL CAR WHERE PATIENT WILL DRIVE SELF HOME
== END 2020-11-07 13:42 | disposition home or self-care (01) ==
LOC: ER 09:11 → INTOOBSV 12:48 → ED HOLD 12:48 → PCU 3S 14:53
PROVIDERS: ADMIT Internal Medicine; ATTEND Internal Medicine
DX: R55 Syncope and collapse (principal); Z20.828 Contact with and (suspected) exposure to other viral communicable diseases; I11.0 Hypertensive heart disease with heart failure; I50.9 Heart failure, unspecified; E11.65 Type 2 diabetes mellitus with hyperglycemia; E78.5 Hyperlipidemia, unspecified; F32.9 Major depressive disorder, single episode, unspecified; I25.10 Atherosclerotic heart disease of native coronary artery without angina pectoris; E87.1 Hypo-osmolality and hyponatremia; E78.00 Pure hypercholesterolemia, unspecified; I25.2 Old myocardial infarction; I48.91 Unspecified atrial fibrillation; E87.5 Hyperkalemia; Z95.1 Presence of aortocoronary bypass graft; Z95.5 Presence of coronary angioplasty implant and graft; Z91.14 Patient's other noncompliance with medication regimen; Z79.01 Long term (current) use of anticoagulants; Z79.4 Long term (current) use of insulin; Z79.899 Other long term (current) drug therapy
CPT/HCPCS: 36415; 70450; 80048; 80061; 82948; 83036; 83735; 84443; 84484; 85025; 85610; 87081; 87635; 93005; 93308; 96360; 96361; 99285; G0378; J1815; J7030

== ENCOUNTER 2020-12-12 08:42 | Emergency (ER) | payer MEDICARE ==
[~2020-12-12] VITALS: Ht 167.6 cm; Wt 76.4 kg
[~2020-12-12 08:42] MED LIST changes: +AMLO10TA PO; -AMLO2.5T2 PO; -CARV-50 PO; -HYDR-3686 PO; +HYDR100T27 PO; -SEMA0.25
--- NOTE | 2020-12-12 09:51 | NUR ---
Dr Ma performing fast exam at bedside.
[2020-12-12 10:49] LABS: BASOPHILS % (AUTO) 0.8 % (0-1); EOSINOPHILS # (AUTO) 0.4 X10'3 (0-0.9); EOSINOPHILS % (AUTO) 8.7 % (0-6); HEMATOCRIT 37.9 % (42.0-52.0); HEMOGLOBIN 12.5 g/dl (14.0-17.9); LYMPHOCYTES # (AUTO) 0.9 X10'3 (1.1-4.8); LYMPHOCYTES % (AUTO) 17.7 % (21-51); MEAN CORPUSCULAR HEMOGLOBIN 28.4 PG (27.0-31.0); MEAN CORPUSCULAR VOLUME 86.2 FL (78-98); MEAN PLATELET VOLUME 7.3 FL (7.4-10.4); MONOCYTES # (AUTO) 0.5 X10'3 (0-0.9); MONOCYTES % (AUTO) 9.7 % (2-12); NEUTROPHILS # (AUTO) 3.2 X10'3 (1.8-7.7); NEUTROPHILS % (AUTO) 63.1 % (42-75); PLATELET COUNT 209 X10'3 (140-440); RED CELL DISTRIBUTION WIDTH 15.3 % (11.5-14.5); WHITE BLOOD COUNT 5.1 X10'3 (4.5-11.0)
[2020-12-12 11:04] LABS: ALANINE AMINOTRANSFERASE 63 U/L (12-78); ALBUMIN 2.9 G/DL (3.4-5.0); ALBUMIN/GLOBULIN RATIO 0.7 (1.1-1.5); ALKALINE PHOSPHATASE 86 IU/L (46-116); ANION GAP 7 (8-16); ASPARTATE AMINO TRANSFERASE 26 U/L (10-37); BILIRUBIN,TOTAL 0.9 MG/DL (0.1-1.0); BLOOD UREA NITROGEN 25 MG/DL (7-18); BUN/CREATININE RATIO 16.2 (5.4-32.0); CALCIUM 8.8 MG/DL (8.5-10.1); CHLORIDE 102 MMOL/L (99-107); CREATININE 1.54 MG/DL (0.60-1.10); GLUCOSE 149 MG/DL (70-104); POTASSIUM 4.5 MMOL/L (3.5-5.1); SODIUM 135 MMOL/L (135-145); TOTAL CARBON DIOXIDE 25.9 MMOL/L (24-32); TOTAL PROTEIN 6.8 G/DL (6.4-8.2); eGFR 44 ML/MIN
[2020-12-12] MEDS ORDERED: iohexol 300mg/ml 100ml inj. ONE (11:11)
--- NOTE | 2020-12-12 11:14 | NUR ---
Pt transported to CT via [facility] with tech.
--- NOTE | 2020-12-12 11:26 | NUR ---
Pt returned from CT.
--- NOTE | 2020-12-12 11:40 | NUR ---
PATIENT REPORTS NOT TAKING HIS AM MEDS TODAY: PATIENT TAKES BP MEDS LAST ATE 010
--- NOTE | 2020-12-12 11:45 | NUR ---
DISCUSSED PT WITH DR FRANK MAX LOOKED AT CT SCAN: PATIETN OK TO EAT AND IS MOST LIKELY GOING HOME, DISCUSSED WITH PATIENT
[2020-12-12 11:50] LABS: CLARITY,URINE CLEAR (Clear); COLOR,URINE YELLOW (Yellow); GLUCOSE, URINE 100 mg/dl (Neg); KETONES,URINE NEGATIVE (Neg); LEUKOCYTE ESTERASE ,URINE NEGATIVE (Neg); NITRITES, URINE NEGATIVE (Neg); OCCULT BLOOD,URINE TRACE-INTACT (Neg); PH,URINE 7.5 (4.8-8.0); PROTEIN,URINE >=300 mg/dl (Neg); UROBILINOGEN,URINE 0.2 E.U/dL (0.2-1.0)
[2020-12-12 11:56] LABS: BACTERIA,URINE NONE SEEN /HPF (Neg); MUCUS STRANDS FEW /LPF (Neg); RBC,URINE 0-2 /HPF (0-2); SQUAMOUS EPITHELIAL CELL,UR NONE SEEN /LPF (FEW); UA COLLECTION TYPE URINAL; WBC,URINE 0-4 /HPF (0-4)
[2020-12-12 12:56] VITALS: BP 180/78
== END 2020-12-12 12:59 | disposition home or self-care (01) ==
LOC: ER 08:43
DX: S30.1XXA Contusion of abdominal wall, initial encounter (principal); R23.3 Spontaneous ecchymoses; I25.10 Atherosclerotic heart disease of native coronary artery without angina pectoris; I11.0 Hypertensive heart disease with heart failure; I50.9 Heart failure, unspecified; E78.00 Pure hypercholesterolemia, unspecified; K21.9 Gastro-esophageal reflux disease without esophagitis; E11.9 Type 2 diabetes mellitus without complications; G89.29 Other chronic pain; F32.9 Major depressive disorder, single episode, unspecified; Z79.01 Long term (current) use of anticoagulants; Z86.19 Personal history of other infectious and parasitic diseases; Z98.61 Coronary angioplasty status; Z90.49 Acquired absence of other specified parts of digestive tract; Z95.1 Presence of aortocoronary bypass graft; Z90.89 Acquired absence of other organs; Z91.010 Allergy to peanuts; Z79.82 Long term (current) use of aspirin; Z79.4 Long term (current) use of insulin; Z79.899 Other long term (current) drug therapy; W01.0XXA Fall on same level from slipping, tripping and stumbling without subsequent striking against object, initial encounter; Y93.89 Activity, other specified; Y92.89 Other specified places as the place of occurrence of the external cause; Y99.8 Other external cause status
CPT/HCPCS: 36415; 74177; 80053; 81001; 85025; 85610; 99285; Q9967

== ENCOUNTER 2021-07-09 20:08 | Emergency (ER) | payer MEDICARE ==
[~2021-07-09] VITALS: Ht 167.6 cm; Wt 85.0 kg
[~2021-07-09 20:08] MED LIST changes: -ISOS30TA6 PO; +ISOS30TA84 PO
[2021-07-09 22:32] LABS: EOSINOPHILS # (AUTO) 0.3 X10'3 (0-0.9); EOSINOPHILS % (AUTO) 7.9 % (0-6); HEMATOCRIT 40.5 % (42.0-52.0); HEMOGLOBIN 13.8 g/dl (14.0-17.9); LYMPHOCYTES # (AUTO) 0.6 X10'3 (1.1-4.8); MEAN CORPUSCULAR HEMOGLOBIN 30.7 PG (27.0-31.0); MEAN CORPUSCULAR HGB CONC 34.1 g/dL (33.0-36.5); MEAN CORPUSCULAR VOLUME 89.9 FL (78-98); MONOCYTES # (AUTO) 0.5 X10'3 (0-0.9); MONOCYTES % (AUTO) 12.1 % (2-12); NEUTROPHILS # (AUTO) 2.7 X10'3 (1.8-7.7); PLATELET COUNT 177 X10'3 (140-440); RED BLOOD COUNT 4.51 X10'6 (4.70-6.10); RED CELL DISTRIBUTION WIDTH 14.5 % (11.5-14.5); WHITE BLOOD COUNT 4.2 X10'3 (4.5-11.0)
[2021-07-09 23:02] LABS: ALANINE AMINOTRANSFERASE 99 U/L (12-78); ALBUMIN 2.5 G/DL (3.4-5.0); ALBUMIN/GLOBULIN RATIO 0.7 (1.1-1.5); ALKALINE PHOSPHATASE 97 IU/L (46-116); ANION GAP 8 (8-16); ASPARTATE AMINO TRANSFERASE 43 U/L (10-37); BILIRUBIN,TOTAL 0.4 MG/DL (0.1-1.0); BLOOD UREA NITROGEN 44 MG/DL (7-18); BUN/CREATININE RATIO 17.5 (5.4-32.0); CHLORIDE 100 MMOL/L (99-107); CREATININE 2.52 MG/DL (0.60-1.10); GLUCOSE 373 MG/DL (70-104); POTASSIUM 4.5 MMOL/L (3.5-5.1); SODIUM 132 MMOL/L (135-145); TOTAL CARBON DIOXIDE 24.1 MMOL/L (24-32); TOTAL PROTEIN 6.2 G/DL (6.4-8.2); eGFR 25 ML/MIN
[2021-07-09] MEDS ORDERED: labetalol 20mg/4ml (5mg/ml) syringe IV ONE (23:40)
[2021-07-10 00:08] LABS: TROPONIN I < 0.04 NG/ML (0.0-0.05)
[2021-07-10 00:20] VITALS: BP 195/98
== END 2021-07-10 02:18 | disposition home or self-care (01) ==
LOC: ER 20:09
DX: G89.29 Other chronic pain (principal); H53.8 Other visual disturbances; I44.30 Unspecified atrioventricular block; I13.0 Hypertensive heart and chronic kidney disease with heart failure and stage 1 through stage 4 chronic kidney disease, or unspecified chronic kidney disease; E11.22 Type 2 diabetes mellitus with diabetic chronic kidney disease; N18.9 Chronic kidney disease, unspecified; I25.10 Atherosclerotic heart disease of native coronary artery without angina pectoris; E78.00 Pure hypercholesterolemia, unspecified; K21.9 Gastro-esophageal reflux disease without esophagitis; F32.9 Major depressive disorder, single episode, unspecified; Z86.19 Personal history of other infectious and parasitic diseases; Z86.718 Personal history of other venous thrombosis and embolism; Z90.89 Acquired absence of other organs; Z98.890 Other specified postprocedural states; Z91.010 Allergy to peanuts; Z79.82 Long term (current) use of aspirin; Z79.4 Long term (current) use of insulin; Z79.899 Other long term (current) drug therapy
CPT/HCPCS: 36415; 71045; 80053; 84484; 85025; 93005; 96374; 99285; J3490

== ENCOUNTER 2021-07-17 10:42 | Emergency (ER) | payer MEDICARE ==
[~2021-07-17] VITALS: Ht 167.6 cm; Wt 85.0 kg
[2021-07-17 12:19] LABS: HEMOGLOBIN 14.9 g/dl (14.0-17.9); MEAN PLATELET VOLUME 8.4 FL (7.4-10.4); RED CELL DISTRIBUTION WIDTH 14.4 % (11.5-14.5)
[2021-07-17 12:21] LABS: EOSINOPHILS # (AUTO) 0.2 X10'3 (0-0.9); EOSINOPHILS % (AUTO) 4.8 % (0-6); HEMATOCRIT 43.6 % (42.0-52.0); LYMPHOCYTES # (AUTO) 0.7 X10'3 (1.1-4.8); LYMPHOCYTES % (AUTO) 15.9 % (21-51); MEAN CORPUSCULAR HEMOGLOBIN 31.9 PG (27.0-31.0); MEAN CORPUSCULAR HGB CONC 34.1 g/dL (33.0-36.5); MEAN CORPUSCULAR VOLUME 93.4 FL (78-98); MONOCYTES # (AUTO) 0.4 X10'3 (0-0.9); MONOCYTES % (AUTO) 9.4 % (2-12); NEUTROPHILS # (AUTO) 3.1 X10'3 (1.8-7.7); NEUTROPHILS % (AUTO) 68.9 % (42-75); PLATELET COUNT 195 X10'3 (140-440); RED BLOOD COUNT 4.67 X10'6 (4.70-6.10); WHITE BLOOD COUNT 4.4 X10'3 (4.5-11.0)
[2021-07-17 12:34] LABS: ALANINE AMINOTRANSFERASE 76 U/L (12-78); ALBUMIN 2.3 G/DL (3.4-5.0); ALBUMIN/GLOBULIN RATIO 0.6 (1.1-1.5); ALKALINE PHOSPHATASE 96 IU/L (46-116); ANION GAP 5 (8-16); ASPARTATE AMINO TRANSFERASE 19 U/L (10-37); BILIRUBIN,TOTAL 0.6 MG/DL (0.1-1.0); BLOOD UREA NITROGEN 51 MG/DL (7-18); BUN/CREATININE RATIO 21.4 (5.4-32.0); CALCIUM 8.2 MG/DL (8.5-10.1); CHLORIDE 97 MMOL/L (99-107); CREATININE 2.38 MG/DL (0.60-1.10); POTASSIUM 5.9 MMOL/L (3.5-5.1); SODIUM 128 MMOL/L (135-145); TOTAL CARBON DIOXIDE 25.6 MMOL/L (24-32); TOTAL PROTEIN 6.2 G/DL (6.4-8.2); eGFR 27 ML/MIN
[2021-07-17 12:38] LABS: GLUCOSE 718 MG/DL (70-104)
[2021-07-17] MEDS ORDERED: insulin regular, human 10 units/0.1 ml syringe IV ONE (13:15)
[2021-07-17] MEDS ORDERED: normal saline 1000ml 1,000 ML IV ONE ×2 (13:15→13:55)
[2021-07-17] MEDS ORDERED: magnesium 2GM in 50ml NS 50 ML IV ONE (13:55)
--- NOTE | 2021-07-17 14:05 | NUR ---
pt c/o extreme leg cramps. provider notifed and ordered mag iv.
[2021-07-17] MEDS ORDERED: labetalol 20mg/4ml (5mg/ml) syringe IV ONE (14:15)
[2021-07-17] MEDS ORDERED: morphine 4 MG/ML inj SYRINge IV ONE (14:15)
[2021-07-17] MEDS ORDERED: LANTUS SQ (18:51)
[2021-07-17] MEDS ORDERED: RIVA15TA PO (18:51)
[2021-07-17] MEDS ORDERED: hydrALAZINE 20mg/ml inj. IV ONE (18:55)
[2021-07-17] MEDS ORDERED: proCHLORperazine 10 MG/2 ml inj IV ONE (19:10)
[2021-07-17 19:24] LABS: ANION GAP 8 (8-16); BLOOD UREA NITROGEN 42 MG/DL (7-18); BUN/CREATININE RATIO 22.1 (5.4-32.0); CHLORIDE 107 MMOL/L (99-107); GLUCOSE 179 MG/DL (70-104); POTASSIUM 4.6 MMOL/L (3.5-5.1); SODIUM 139 MMOL/L (135-145); TOTAL CARBON DIOXIDE 23.7 MMOL/L (24-32); eGFR 35 ML/MIN
[2021-07-17 20:06] VITALS: BP 165/69
== END 2021-07-17 20:42 | disposition home or self-care (01) ==
LOC: ER 10:43
DX: E87.5 Hyperkalemia (principal); E11.65 Type 2 diabetes mellitus with hyperglycemia; E87.1 Hypo-osmolality and hyponatremia; I25.10 Atherosclerotic heart disease of native coronary artery without angina pectoris; I11.0 Hypertensive heart disease with heart failure; I50.9 Heart failure, unspecified; E78.00 Pure hypercholesterolemia, unspecified; K21.9 Gastro-esophageal reflux disease without esophagitis; G89.29 Other chronic pain; Z86.718 Personal history of other venous thrombosis and embolism; Z95.5 Presence of coronary angioplasty implant and graft; Z90.49 Acquired absence of other specified parts of digestive tract; Z90.89 Acquired absence of other organs; Z79.01 Long term (current) use of anticoagulants; Z79.82 Long term (current) use of aspirin; Z79.4 Long term (current) use of insulin; Z79.899 Other long term (current) drug therapy; Z91.010 Allergy to peanuts
CPT/HCPCS: 36415; 71045; 80048; 80053; 82948; 83880; 84484; 85025; 85610; 93005; 93970; 96361; 96365; 96366; 96375; 99285; J0360; J0780; J1815; J2270; J3475; J7030; J3490

== ENCOUNTER 2021-07-18 10:23 | Emergency (ER) | payer MEDICARE ==
[~2021-07-18] VITALS: Ht 170.2 cm; Wt 70.2 kg
[~2021-07-18 10:23] MED LIST changes: +LANTUS SQ; +RIVA15TA PO
[2021-07-18 11:41] VITALS: BP 165/78
--- NOTE | 2021-07-18 11:56 | NUR ---
EVALUATED BY PA IN TRIAGE. TREATED AND RELEASED WITH TX BY PA.
== END 2021-07-18 11:55 | disposition home or self-care (01) ==
LOC: ER 10:23
DX: R25.2 Cramp and spasm (principal); R03.0 Elevated blood-pressure reading, without diagnosis of hypertension; R73.9 Hyperglycemia, unspecified; I25.10 Atherosclerotic heart disease of native coronary artery without angina pectoris; I11.0 Hypertensive heart disease with heart failure; I50.9 Heart failure, unspecified; K21.9 Gastro-esophageal reflux disease without esophagitis; E11.9 Type 2 diabetes mellitus without complications; G89.29 Other chronic pain; Z86.19 Personal history of other infectious and parasitic diseases; Z86.718 Personal history of other venous thrombosis and embolism; Z95.5 Presence of coronary angioplasty implant and graft; Z90.49 Acquired absence of other specified parts of digestive tract; Z79.01 Long term (current) use of anticoagulants; Z79.4 Long term (current) use of insulin; Z79.899 Other long term (current) drug therapy; Z79.82 Long term (current) use of aspirin; Z91.010 Allergy to peanuts
CPT/HCPCS: 99281

== ENCOUNTER 2021-07-31 17:04 | Emergency (ER) | payer MEDICARE ==
[~2021-07-31] VITALS: Ht 167.6 cm; Wt 85.0 kg
[2021-07-31 17:26] VITALS: BP 121/82
[2021-07-31 18:28] LABS: BASOPHILS # (AUTO) 0.1 X10'3 (0-0.2); BASOPHILS % (AUTO) 0.8 % (0-1); EOSINOPHILS # (AUTO) 0.3 X10'3 (0-0.9); EOSINOPHILS % (AUTO) 4.9 % (0-6); HEMATOCRIT 42.6 % (42.0-52.0); HEMOGLOBIN 14.2 g/dl (14.0-17.9); LYMPHOCYTES # (AUTO) 1.4 X10'3 (1.1-4.8); LYMPHOCYTES % (AUTO) 20.6 % (21-51); MEAN CORPUSCULAR HEMOGLOBIN 30.9 PG (27.0-31.0); MEAN CORPUSCULAR HGB CONC 33.4 g/dL (33.0-36.5); MEAN CORPUSCULAR VOLUME 92.7 FL (78-98); MEAN PLATELET VOLUME 8.3 FL (7.4-10.4); MONOCYTES # (AUTO) 0.5 X10'3 (0-0.9); MONOCYTES % (AUTO) 7.3 % (2-12); NEUTROPHILS # (AUTO) 4.4 X10'3 (1.8-7.7); NEUTROPHILS % (AUTO) 66.4 % (42-75); PLATELET COUNT 211 X10'3 (140-440); RED CELL DISTRIBUTION WIDTH 14.2 % (11.5-14.5); WHITE BLOOD COUNT 6.6 X10'3 (4.5-11.0)
[2021-07-31 18:43] LABS: ALANINE AMINOTRANSFERASE 61 U/L (12-78); ALBUMIN 2.2 G/DL (3.4-5.0); ALBUMIN/GLOBULIN RATIO 0.6 (1.1-1.5); ALKALINE PHOSPHATASE 84 IU/L (46-116); ANION GAP 8 (8-16); ASPARTATE AMINO TRANSFERASE 22 U/L (10-37); BILIRUBIN,TOTAL 0.5 MG/DL (0.1-1.0); BLOOD UREA NITROGEN 45 MG/DL (7-18); BUN/CREATININE RATIO 21.3 (5.4-32.0); CALCIUM 8.2 MG/DL (8.5-10.1); CHLORIDE 101 MMOL/L (99-107); CREATININE 2.11 MG/DL (0.60-1.10); GLUCOSE 298 MG/DL (70-104); POTASSIUM 5.3 MMOL/L (3.5-5.1); SODIUM 131 MMOL/L (135-145); TOTAL CARBON DIOXIDE 21.7 MMOL/L (24-32); TOTAL PROTEIN 5.9 G/DL (6.4-8.2); eGFR 31 ML/MIN
[2021-07-31] MEDS ORDERED: lactulose 20gm/30ml cup PO ONE (19:00)
== END 2021-07-31 20:19 | disposition home or self-care (01) ==
LOC: ER 17:06
DX: E87.5 Hyperkalemia (principal); Z20.822 Contact with and (suspected) exposure to COVID-19; E11.65 Type 2 diabetes mellitus with hyperglycemia; E11.22 Type 2 diabetes mellitus with diabetic chronic kidney disease; I12.9 Hypertensive chronic kidney disease with stage 1 through stage 4 chronic kidney disease, or unspecified chronic kidney disease; N18.9 Chronic kidney disease, unspecified; R06.02 Shortness of breath; I25.10 Atherosclerotic heart disease of native coronary artery without angina pectoris; I11.0 Hypertensive heart disease with heart failure; I50.9 Heart failure, unspecified; E78.00 Pure hypercholesterolemia, unspecified; G89.29 Other chronic pain; Z86.718 Personal history of other venous thrombosis and embolism; Z95.5 Presence of coronary angioplasty implant and graft; Z90.49 Acquired absence of other specified parts of digestive tract; Z90.89 Acquired absence of other organs; Z91.010 Allergy to peanuts; Z79.899 Other long term (current) drug therapy; Z79.4 Long term (current) use of insulin; Z79.01 Long term (current) use of anticoagulants
CPT/HCPCS: 36415; 71045; 80053; 83880; 84484; 85025; 93005; 99285; U0003; U0005

== ENCOUNTER 2021-08-01 13:04 | Emergency (ER) | payer MEDICARE ==
[~2021-08-01] VITALS: Ht 167.6 cm; Wt 85.0 kg
--- NOTE | 2021-08-01 13:35 | NUR ---
Pt c/o cramping in B hands.
[2021-08-01 14:13] LABS: BASOPHILS # (AUTO) 0.1 X10'3 (0-0.2); BASOPHILS % (AUTO) 0.9 % (0-1); EOSINOPHILS # (AUTO) 0.2 X10'3 (0-0.9); EOSINOPHILS % (AUTO) 3.2 % (0-6); HEMATOCRIT 45.3 % (42.0-52.0); LYMPHOCYTES # (AUTO) 1.1 X10'3 (1.1-4.8); LYMPHOCYTES % (AUTO) 17.8 % (21-51); MEAN CORPUSCULAR HEMOGLOBIN 31.1 PG (27.0-31.0); MEAN CORPUSCULAR HGB CONC 33.2 g/dL (33.0-36.5); MEAN CORPUSCULAR VOLUME 93.7 FL (78-98); MEAN PLATELET VOLUME 8.4 FL (7.4-10.4); MONOCYTES # (AUTO) 0.4 X10'3 (0-0.9); NEUTROPHILS # (AUTO) 4.6 X10'3 (1.8-7.7); NEUTROPHILS % (AUTO) 72.1 % (42-75); PLATELET COUNT 242 X10'3 (140-440); RED BLOOD COUNT 4.84 X10'6 (4.70-6.10); RED CELL DISTRIBUTION WIDTH 13.9 % (11.5-14.5); WHITE BLOOD COUNT 6.4 X10'3 (4.5-11.0)
[2021-08-01 14:20] LABS: ALANINE AMINOTRANSFERASE 62 U/L (12-78); ALBUMIN 2.3 G/DL (3.4-5.0); ALBUMIN/GLOBULIN RATIO 0.6 (1.1-1.5); ALKALINE PHOSPHATASE 97 IU/L (46-116); ANION GAP 10 (8-16); ASPARTATE AMINO TRANSFERASE 23 U/L (10-37); BILIRUBIN,TOTAL 0.6 MG/DL (0.1-1.0); BLOOD UREA NITROGEN 42 MG/DL (7-18); BUN/CREATININE RATIO 17.8 (5.4-32.0); CALCIUM 7.6 MG/DL (8.5-10.1); CHLORIDE 95 MMOL/L (99-107); CREATININE 2.36 MG/DL (0.60-1.10); LIPASE 125 U/L (73-393); POTASSIUM 4.6 MMOL/L (3.5-5.1); SODIUM 128 MMOL/L (135-145); TOTAL CARBON DIOXIDE 22.8 MMOL/L (24-32); TOTAL PROTEIN 6.3 G/DL (6.4-8.2); eGFR 27 ML/MIN
[2021-08-01] MEDS ORDERED: normal saline 1000ML IV soln IVB ONE (14:20)
[2021-08-01 14:21] LABS: GLUCOSE 500 MG/DL (70-104)
[2021-08-01] MEDS ORDERED: insulin regular, human 10 units/0.1 ml syringe IV ONE (15:00)
[2021-08-01 15:04] LABS: MAGNESIUM 2.2 MG/DL (1.5-2.4); TROPONIN I < 0.04 NG/ML (0.0-0.05)
--- NOTE | 2021-08-01 16:25 | NUR ---
Pt c/o severe cramp in L LE from his foot up to his groin. notified.
[2021-08-01 16:26] LABS: CLARITY,URINE CLEAR (Clear); COLOR,URINE YELLOW (Yellow); GLUCOSE, URINE >=1000 mg/dl (Neg); KETONES,URINE NEGATIVE (Neg); LEUKOCYTE ESTERASE ,URINE NEGATIVE (Neg); NITRITES, URINE NEGATIVE (Neg); OCCULT BLOOD,URINE NEGATIVE (Neg); PROTEIN,URINE >=300 mg/dl (Neg); UROBILINOGEN,URINE 0.2 E.U/dL (0.2-1.0)
[2021-08-01 16:30] LABS: UA COLLECTION TYPE NON-SPECIFIED
[2021-08-01 16:34] LABS: BACTERIA,URINE FEW /HPF (Neg); RBC,URINE 0-2 /HPF (0-2); SQUAMOUS EPITHELIAL CELL,UR NONE SEEN /LPF (FEW); WBC,URINE NONE SEEN /HPF (0-4); YEAST FEW /HPF (NEGATIVE)
[2021-08-01] MEDS ORDERED: acetaminophen 325mg tablet PO ONE (16:45)
[2021-08-01] MEDS ORDERED: LORazepam 2 mg/ml vial IV ONE (16:45)
[2021-08-01] MEDS ORDERED: fentaNYL/PF 50MCG/1 ML 2ML syringe IV ONE (16:50)
[2021-08-01 17:52] VITALS: BP 187/76
== END 2021-08-01 17:54 | disposition home or self-care (01) ==
LOC: ER 13:05
DX: E11.65 Type 2 diabetes mellitus with hyperglycemia (principal); R25.2 Cramp and spasm; I25.10 Atherosclerotic heart disease of native coronary artery without angina pectoris; I11.0 Hypertensive heart disease with heart failure; I50.9 Heart failure, unspecified; E78.00 Pure hypercholesterolemia, unspecified; K21.9 Gastro-esophageal reflux disease without esophagitis; Z86.19 Personal history of other infectious and parasitic diseases; Z86.718 Personal history of other venous thrombosis and embolism; Z95.5 Presence of coronary angioplasty implant and graft; Z90.49 Acquired absence of other specified parts of digestive tract; Z90.89 Acquired absence of other organs
CPT/HCPCS: 36415; 80053; 81001; 82948; 83690; 83735; 84484; 85025; 96361; 96374; 96375; 99284; J1815; J2060; J3010; J7030

== ENCOUNTER 2022-01-23 09:09 | Emergency (ER) | payer MEDICARE ==
[~2022-01-23] VITALS: Ht 167.6 cm; Wt 90.0 kg
[~2022-01-23 09:09] MED LIST changes: -LANTUS SQ
[2022-01-23 09:17] VITALS: BP 138/65
[2022-01-23 09:58] LABS: BASOPHILS % (AUTO) 0.8 % (0-1); EOSINOPHILS # (AUTO) 0.3 X10'3 (0-0.9); EOSINOPHILS % (AUTO) 8.7 % (0-6); HEMATOCRIT 35.2 % (42.0-52.0); HEMOGLOBIN 11.8 g/dl (14.0-17.9); LYMPHOCYTES # (AUTO) 0.8 X10'3 (1.1-4.8); LYMPHOCYTES % (AUTO) 20.2 % (21-51); MEAN CORPUSCULAR HEMOGLOBIN 28.8 PG (27.0-31.0); MEAN CORPUSCULAR HGB CONC 33.5 g/dL (33.0-36.5); MEAN CORPUSCULAR VOLUME 85.9 FL (78-98); MEAN PLATELET VOLUME 7.3 FL (7.4-10.4); MONOCYTES # (AUTO) 0.4 X10'3 (0-0.9); MONOCYTES % (AUTO) 9.6 % (2-12); NEUTROPHILS # (AUTO) 2.3 X10'3 (1.8-7.7); NEUTROPHILS % (AUTO) 60.7 % (42-75); PLATELET COUNT 234 X10'3 (140-440); WHITE BLOOD COUNT 3.8 X10'3 (4.5-11.0)
[2022-01-23 10:31] LABS: ALANINE AMINOTRANSFERASE 64 U/L (12-78); ALBUMIN 2.6 G/DL (3.4-5.0); ALBUMIN/GLOBULIN RATIO 0.7 (1.1-1.5); ALKALINE PHOSPHATASE 76 IU/L (46-116); ANION GAP 9 (8-16); ASPARTATE AMINO TRANSFERASE 31 U/L (10-37); BILIRUBIN,TOTAL 0.6 MG/DL (0.1-1.0); BLOOD UREA NITROGEN 34 MG/DL (7-18); BUN/CREATININE RATIO 14.8 (5.4-32.0); CALCIUM 8.3 MG/DL (8.5-10.1); CHLORIDE 105 MMOL/L (99-107); GLUCOSE 70 MG/DL (70-104); POTASSIUM 4.4 MMOL/L (3.5-5.1); SODIUM 138 MMOL/L (135-145); TOTAL CARBON DIOXIDE 24.3 MMOL/L (24-32); TOTAL PROTEIN 6.3 G/DL (6.4-8.2); eGFR 28 ML/MIN
== END 2022-01-23 11:08 | disposition home or self-care (01) ==
LOC: ER 09:10
DX: I12.9 Hypertensive chronic kidney disease with stage 1 through stage 4 chronic kidney disease, or unspecified chronic kidney disease (principal); E11.22 Type 2 diabetes mellitus with diabetic chronic kidney disease; N18.9 Chronic kidney disease, unspecified; R25.2 Cramp and spasm; I25.10 Atherosclerotic heart disease of native coronary artery without angina pectoris; E78.00 Pure hypercholesterolemia, unspecified; K21.9 Gastro-esophageal reflux disease without esophagitis; G89.29 Other chronic pain; F32.A Depression, unspecified; Z86.19 Personal history of other infectious and parasitic diseases; Z90.89 Acquired absence of other organs; Z98.890 Other specified postprocedural states; Z91.010 Allergy to peanuts; Z79.82 Long term (current) use of aspirin; Z79.4 Long term (current) use of insulin; Z79.899 Other long term (current) drug therapy
CPT/HCPCS: 36415; 80053; 85025; 99283

== ENCOUNTER 2022-02-22 10:30 | Inpatient (IN) | payer MEDICARE ==
[~2022-02-22] VITALS: Ht 167.6 cm; Wt 90.5 kg
[~2022-02-22 10:30] MED LIST changes: -AMA1T PO; -CLOP75TA15 PO; +DEXL60CA3 PO; -DULO-31 PO; +DULO60CA65 PO; -LOSA100T57 PO; -RANO500T3 PO; -RIVA15TA PO
[2022-02-22 10:59] LABS: BASOPHILS % (AUTO) 0.7 % (0-1); EOSINOPHILS # (AUTO) 0.3 X10'3 (0-0.9); EOSINOPHILS % (AUTO) 6.2 % (0-6); HEMATOCRIT 23.6 % (42.0-52.0); HEMOGLOBIN 7.6 g/dl (14.0-17.9); LYMPHOCYTES # (AUTO) 0.7 X10'3 (1.1-4.8); LYMPHOCYTES % (AUTO) 13.3 % (21-51); MEAN CORPUSCULAR HEMOGLOBIN 26.9 PG (27.0-31.0); MEAN CORPUSCULAR HGB CONC 32.2 g/dL (33.0-36.5); MEAN CORPUSCULAR VOLUME 83.5 FL (78-98); MEAN PLATELET VOLUME 7.1 FL (7.4-10.4); MONOCYTES # (AUTO) 0.4 X10'3 (0-0.9); MONOCYTES % (AUTO) 8.4 % (2-12); NEUTROPHILS # (AUTO) 3.6 X10'3 (1.8-7.7); NEUTROPHILS % (AUTO) 71.4 % (42-75); PLATELET COUNT 285 X10'3 (140-440); RED BLOOD COUNT 2.82 X10'6 (4.70-6.10); RED CELL DISTRIBUTION WIDTH 17.1 % (11.5-14.5); WHITE BLOOD COUNT 5.1 X10'3 (4.5-11.0)
[2022-02-22 11:08] LABS: GLUCOSE 326 MG/DL (70-104)
[2022-02-22 11:09] LABS: ALANINE AMINOTRANSFERASE 50 U/L (12-78); ALBUMIN 2.4 G/DL (3.4-5.0); ALBUMIN/GLOBULIN RATIO 0.7 (1.1-1.5); ALKALINE PHOSPHATASE 77 IU/L (46-116); ANION GAP 14 (8-16); ASPARTATE AMINO TRANSFERASE 25 U/L (10-37); BILIRUBIN,TOTAL 0.4 MG/DL (0.1-1.0); BLOOD UREA NITROGEN 57 MG/DL (7-18); BUN/CREATININE RATIO 20.9 (5.4-32.0); CALCIUM 8.3 MG/DL (8.5-10.1); CHLORIDE 102 MMOL/L (99-107); CREATININE 2.73 MG/DL (0.60-1.10); POTASSIUM 4.9 MMOL/L (3.5-5.1); SODIUM 135 MMOL/L (135-145); TOTAL PROTEIN 5.8 G/DL (6.4-8.2); eGFR 23 ML/MIN
[2022-02-22 13:14] LABS: D-DIMER 0.33 MG/L FEU (0-0.50)
[2022-02-22] MEDS ORDERED: AMA1T PO (14:16)
[2022-02-22] MEDS ORDERED: ISOS60TA71 PO (14:16)
[2022-02-22] MEDS ORDERED: LOSA100T57 PO (14:16)
[2022-02-22] MEDS ORDERED: DULO60CA65 PO (14:16)
[2022-02-22] MEDS ORDERED: NOVLG SQ (14:16)
[2022-02-22] MEDS ORDERED: CLOP75TA34 PO (14:16)
[2022-02-22] MEDS ORDERED: LANTUS SQ (14:16)
[2022-02-22] MEDS ORDERED: WARF-55 PO (14:16)
[2022-02-22] MEDS ORDERED: bisacodyl 10mg suppository rectal RC PRN (15:45)
[2022-02-22] MEDS ORDERED: acetaminophen 650mg rectal suppository RC PRN (15:45)
[2022-02-22] MEDS ORDERED: MESSAGE TO PHARMACY PO ONE (15:45)
[2022-02-22] MEDS ORDERED: morphine 2 MG/ML inj. syringe IV PRN ×2 (15:45)
[2022-02-22] MEDS ORDERED: potassium CL 10mEq/100ml bag 100 ML IV PRN (15:45)
[2022-02-22] MEDS ORDERED: potassium Cl 20 mEq SR tablet PO PRN ×2 (15:45)
[2022-02-22] MEDS ORDERED: DEXTROSE 15 GM of carb/4 tabs (each vial/BOTTLE has 4 tablets) PO PRN ×2 (15:45)
[2022-02-22] MEDS ORDERED: magnesium hydroxide 30ml (MOM) UD suspension PO PRN (15:45)
[2022-02-22] MEDS ORDERED: magnesium 2GM in 50ml NS 50 ML IV PRN (15:45)
[2022-02-22] MEDS ORDERED: dextrose 50%-water 50ml dispensing syringe IV PRN ×2 (15:45)
[2022-02-22] MEDS: normal saline 1000ml 1,000 ML IV SCH (15:45)
[2022-02-22] MEDS ORDERED: glucagon, human recombinant 1mg kit SUBCUT PRN (15:45)
[2022-02-22] MEDS ORDERED: magnesium Cl slow-release 64mg tablet PO PRN (15:45)
[2022-02-22] MEDS ORDERED: acetaminophen 325mg tablet PO PRN (15:45)
[2022-02-22] MEDS ORDERED: magnesium 4gm in 100ml NS 100 ML IV PRN (15:45)
[2022-02-22 18:59] LABS: CLARITY,URINE CLEAR (Clear); COLOR,URINE YELLOW (Yellow); GLUCOSE, URINE 250 mg/dl (Neg); KETONES,URINE NEGATIVE (Neg); LEUKOCYTE ESTERASE ,URINE NEGATIVE (Neg); NITRITES, URINE NEGATIVE (Neg); OCCULT BLOOD,URINE TRACE-INTACT (Neg); PROTEIN,URINE >=300 mg/dl (Neg); UROBILINOGEN,URINE 0.2 E.U/dL (0.2-1.0)
[2022-02-22 19:07] LABS: UA COLLECTION TYPE URINAL
[2022-02-22 19:09] LABS: BACTERIA,URINE NONE SEEN /HPF (Neg); SQUAMOUS EPITHELIAL CELL,UR FEW /LPF (FEW); WBC,URINE 0-4 /HPF (0-4)
[2022-02-22 19:10] LABS: MUCUS STRANDS NONE SEEN /LPF (Neg)
[2022-02-22] MEDS: diphenhydrAMINE 25mg capsule PO PRN (19:16)
[2022-02-22] MEDS: hydrALAZINE 25 MG tablet PO SCH (19:57)
[2022-02-22] MEDS: docusate sod 100mg capsule PO SCH (19:57)
[2022-02-22] MEDS: K and/or MAG REPLACEMENT MC SCH (20:00)
--- NOTE | 2022-02-22 20:06 | NUR ---
DROPPED 25 MG OF THE DYDRALAZINE ORDER. GAVE THE REST OF THE MEDICATION AND DOCUMENTED A WASTED DOSE IN THE OMNI WELL WASTE THE MED IN THE PROPER BIN.
[2022-02-22] MEDS ORDERED: hydrALAZINE 25 MG tablet PO SCH (20:30)
[2022-02-22] MEDS ORDERED: hydrALAZINE 25 MG tablet PO ONE (20:35)
[2022-02-22 22:00] VITALS: BP 176/77
[2022-02-22] MEDS: insulin glargine (Lantus) pen - multi-dose SQ SCH (23:33)
[2022-02-23] MEDS ORDERED: hydrALAZINE 25 MG tablet PO SCH
[2022-02-23 02:00] VITALS: BP 149/69
[2022-02-23] MEDS: normal saline 1000ml 1,000 ML IV SCH (05:33)
[2022-02-23] MEDS: diphenhydrAMINE 25mg capsule PO PRN ×3 (05:38→23:10)
[2022-02-23 06:00] VITALS: BP 170/72
[2022-02-23 06:40] LABS: BASOPHILS % (AUTO) 0.5 % (0-1); EOSINOPHILS # (AUTO) 0.6 X10'3 (0-0.9); EOSINOPHILS % (AUTO) 9.5 % (0-6); HEMATOCRIT 25.7 % (42.0-52.0); HEMOGLOBIN 8.2 g/dl (14.0-17.9); LYMPHOCYTES # (AUTO) 0.7 X10'3 (1.1-4.8); LYMPHOCYTES % (AUTO) 12.1 % (21-51); MEAN CORPUSCULAR HEMOGLOBIN 26.3 PG (27.0-31.0); MEAN CORPUSCULAR HGB CONC 31.9 g/dL (33.0-36.5); MEAN CORPUSCULAR VOLUME 82.6 FL (78-98); MEAN PLATELET VOLUME 7.1 FL (7.4-10.4); MONOCYTES # (AUTO) 0.6 X10'3 (0-0.9); MONOCYTES % (AUTO) 9.4 % (2-12); NEUTROPHILS % (AUTO) 68.5 % (42-75); PLATELET COUNT 322 X10'3 (140-440); RED BLOOD COUNT 3.11 X10'6 (4.70-6.10); RED CELL DISTRIBUTION WIDTH 17.6 % (11.5-14.5); WHITE BLOOD COUNT 5.9 X10'3 (4.5-11.0)
[2022-02-23 06:53] LABS: ALANINE AMINOTRANSFERASE 44 U/L (12-78); ALBUMIN 2.3 G/DL (3.4-5.0); ALBUMIN/GLOBULIN RATIO 0.6 (1.1-1.5); ALKALINE PHOSPHATASE 81 IU/L (46-116); ANION GAP 10 (8-16); ASPARTATE AMINO TRANSFERASE 22 U/L (10-37); BILIRUBIN,TOTAL 0.5 MG/DL (0.1-1.0); BLOOD UREA NITROGEN 44 MG/DL (7-18); BUN/CREATININE RATIO 19.9 (5.4-32.0); CHLORIDE 110 MMOL/L (99-107); CHOL/HDL RATIO 2.2 (0.00-4.99); CHOLESTEROL 111 MG/DL (0-200); CREATININE 2.21 MG/DL (0.60-1.10); GLUCOSE 190 MG/DL (70-104); HDL CHOLESTEROL 51 MG/DL (35-60); LDL CHOLESTEROL 46 MG/DL (50-100); MAGNESIUM 2.3 MG/DL (1.5-2.4); PHOSPHORUS 3.8 MG/DL (2.3-4.5); POTASSIUM 4.8 MMOL/L (3.5-5.1); SODIUM 139 MMOL/L (135-145); TOTAL CARBON DIOXIDE 19.5 MMOL/L (24-32); TOTAL PROTEIN 6.1 G/DL (6.4-8.2); TRIGLYCERIDES 116 MG/DL (20-135); eGFR 29 ML/MIN
[2022-02-23] MEDS ORDERED: clopidogrel 75mg tablet PO SCH (08:00)
[2022-02-23] MEDS: K and/or MAG REPLACEMENT MC SCH ×2 (08:00→20:00)
[2022-02-23] MEDS: multivitamins, therapeutics tablet PO SCH (09:15)
[2022-02-23] MEDS: aspirin 81mg tab.chew PO SCH (09:15)
[2022-02-23] MEDS: duloxetine 30mg CAPSULE.DR PO SCH (09:16)
[2022-02-23] MEDS: docusate sod 100mg capsule PO SCH ×2 (09:18→23:12)
[2022-02-23] MEDS: hydrALAZINE 25 MG tablet PO SCH ×2 (09:19→23:12)
[2022-02-23] MEDS: losartan 50mg tablet PO SCH (09:21)
[2022-02-23] MEDS: amLODIPine 5mg tablet PO SCH (09:22)
[2022-02-23] MEDS: isosorbide mononitrate 30mg tab.SR.24H PO SCH (09:24)
[2022-02-23 10:00] VITALS: BP_SYST 146; BP_SYST 165; BP_SYST 170; BP_DIAS 60; BP_DIAS 66; BP_DIAS 75
[2022-02-23] MEDS: atorvastatin 20mg tablet PO SCH ×2 (13:29→23:25)
[2022-02-23] MEDS: insulin Lispro (HumaLOG) vial - multi-dose SQ SCH (13:31)
[2022-02-23 15:00] VITALS: BP 157/72
[2022-02-23 18:00] VITALS: BP 141/65
[2022-02-23 22:00] VITALS: BP 149/63
[2022-02-23] MEDS: sodium bicarbonate (8.4%) inj. 50 MEQ in dextrose 5%-water 1,000 ML IV SCH (23:11)
[2022-02-23] MEDS: insulin glargine (Lantus) pen - multi-dose SQ SCH (23:34)
[2022-02-24] VITALS (9 sets, daily range): BP systolic 138–169; BP diastolic 51–80
[2022-02-24 06:06] LABS: BASOPHILS % (AUTO) 0.8 % (0-1); EOSINOPHILS # (AUTO) 0.6 X10'3 (0-0.9); EOSINOPHILS % (AUTO) 10.7 % (0-6); HEMOGLOBIN 8.2 g/dl (14.0-17.9); LYMPHOCYTES # (AUTO) 0.8 X10'3 (1.1-4.8); LYMPHOCYTES % (AUTO) 13.9 % (21-51); MEAN CORPUSCULAR HEMOGLOBIN 26.8 PG (27.0-31.0); MEAN CORPUSCULAR HGB CONC 32.6 g/dL (33.0-36.5); MEAN CORPUSCULAR VOLUME 82.1 FL (78-98); MEAN PLATELET VOLUME 7.1 FL (7.4-10.4); MONOCYTES # (AUTO) 0.5 X10'3 (0-0.9); MONOCYTES % (AUTO) 8.6 % (2-12); NEUTROPHILS # (AUTO) 3.9 X10'3 (1.8-7.7); PLATELET COUNT 309 X10'3 (140-440); RED BLOOD COUNT 3.05 X10'6 (4.70-6.10); RED CELL DISTRIBUTION WIDTH 17.6 % (11.5-14.5); WHITE BLOOD COUNT 5.9 X10'3 (4.5-11.0)
[2022-02-24 06:23] LABS: ALANINE AMINOTRANSFERASE 39 U/L (12-78); ALBUMIN 2.2 G/DL (3.4-5.0); ALBUMIN/GLOBULIN RATIO 0.6 (1.1-1.5); ALKALINE PHOSPHATASE 77 IU/L (46-116); ANION GAP 8 (8-16); ASPARTATE AMINO TRANSFERASE 19 U/L (10-37); BILIRUBIN,TOTAL 0.6 MG/DL (0.1-1.0); BLOOD UREA NITROGEN 40 MG/DL (7-18); BUN/CREATININE RATIO 18.9 (5.4-32.0); CALCIUM 7.9 MG/DL (8.5-10.1); CHLORIDE 110 MMOL/L (99-107); CREATININE 2.12 MG/DL (0.60-1.10); GLUCOSE 176 MG/DL (70-104); MAGNESIUM 2.1 MG/DL (1.5-2.4); PHOSPHORUS 3.5 MG/DL (2.3-4.5); POTASSIUM 4.4 MMOL/L (3.5-5.1); SODIUM 138 MMOL/L (135-145); TOTAL CARBON DIOXIDE 20.2 MMOL/L (24-32); TOTAL PROTEIN 5.6 G/DL (6.4-8.2); eGFR 31 ML/MIN
--- NOTE | 2022-02-24 07:47 | NUR ---
Dr Martinez paged regarding 25 beat s v-tach few minutes ago. Patient denies any symptoms or discomfort at time.
[2022-02-24] MEDS: losartan 50mg tablet PO SCH (08:01)
[2022-02-24] MEDS: isosorbide mononitrate 30mg tab.SR.24H PO SCH (08:01)
[2022-02-24] MEDS: multivitamins, therapeutics tablet PO SCH (08:02)
[2022-02-24] MEDS: amLODIPine 5mg tablet PO SCH (08:02)
[2022-02-24] MEDS: docusate sod 100mg capsule PO SCH ×2 (08:02→20:00)
[2022-02-24] MEDS: duloxetine 30mg CAPSULE.DR PO SCH (08:02)
[2022-02-24] MEDS: aspirin 81mg tab.chew PO SCH (08:02)
[2022-02-24] MEDS: hydrALAZINE 25 MG tablet PO SCH ×2 (08:03→20:48)
[2022-02-24] MEDS: K and/or MAG REPLACEMENT MC SCH ×2 (08:05→20:00)
[2022-02-24] MEDS: insulin Lispro (HumaLOG) vial - multi-dose SQ SCH ×3 (08:29→19:06)
[2022-02-24] MEDS: sodium bicarbonate (8.4%) inj. 50 MEQ in dextrose 5%-water 1,000 ML IV SCH (09:20)
[2022-02-24] MEDS ORDERED: metoprolol tartrate 1mg/ml inj IV PRN (13:40)
[2022-02-24] MEDS ORDERED: regadenoson 0.4mg/5ml syringe IV PRN (13:40)
[2022-02-24] MEDS ORDERED: aminophylline 250mg/10ml inj. IV PRN (13:40)
[2022-02-24] MEDS ORDERED: nitroGLYCERIN 0.4mg SUBLingual tab SL PRN (13:40)
[2022-02-24] MEDS: diphenhydrAMINE 25mg capsule PO PRN (19:08)
[2022-02-24] MEDS ORDERED: phytonadione inj. 5 MG in normal saline 100ml IV soln 100 ML IV ONE (19:30)
[2022-02-24] MEDS: atorvastatin 20mg tablet PO SCH (20:48)
[2022-02-24] MEDS: acetylcysteine 200 MG/ml 4ml vial PO SCH (20:57)
[2022-02-24] MEDS ORDERED: warfarin 3mg tablet PO ONE (21:00)
[2022-02-24] MEDS: insulin glargine (Lantus) pen - multi-dose SQ SCH (21:21)
--- NOTE | 2022-02-24 21:56 | NUR ---
Spoke with Dr. Garcia and requesting for the Coumadin to be stopped and to administer vitamin K. MD wanted for the stress test to be canceled and MD considering taking patient for an angiogram tomorrow.
[2022-02-25] VITALS (12 sets, daily range): BP systolic 91–222; BP diastolic 47–89
[2022-02-25] MEDS: sodium bicarbonate (8.4%) inj. 50 MEQ in dextrose 5%-water 1,000 ML IV SCH ×2 (01:02→16:22)
[2022-02-25] MEDS ORDERED: hydrALAZINE 20mg/ml inj. IV PRN (03:15)
[2022-02-25] MEDS: ondansetron/PF 4mg/2ml inj IV PRN (05:00)
--- NOTE | 2022-02-25 05:42 | NUR ---
Patients blood pressure over 200 SBP. MD called and another one time dose of hydralazine ordered.
[2022-02-25] MEDS ORDERED: hydrALAZINE 20mg/ml inj. IV ONE ×2 (05:45→07:35)
--- NOTE | 2022-02-25 06:24 | NUR ---
Problems reprioritized. Patient report given, questions answered & plan of care reviewed with Campbell JEAN BAPTISTE.
--- NOTE | 2022-02-25 07:17 | NUR ---
PAGER ID: [phone] MESSAGE: Hi Doc, 3029X(Garcia) SBP 214, HR 115 Hydralazinex2 given. NPO for stress test. Thank you
[2022-02-25] MEDS ORDERED: aminophylline 500mg/20ml vial IV PRN (07:43)
[2022-02-25] MEDS: hydrALAZINE 25 MG tablet PO SCH ×2 (07:47→20:06)
[2022-02-25] MEDS: isosorbide mononitrate 30mg tab.SR.24H PO SCH (07:48)
[2022-02-25] MEDS: amLODIPine 5mg tablet PO SCH (07:48)
[2022-02-25] MEDS: aspirin 81mg tab.chew PO SCH (07:49)
[2022-02-25] MEDS: duloxetine 30mg CAPSULE.DR PO SCH (07:49)
[2022-02-25] MEDS: multivitamins, therapeutics tablet PO SCH (07:49)
[2022-02-25] MEDS: losartan 50mg tablet PO SCH (07:50)
[2022-02-25] MEDS: docusate sod 100mg capsule PO SCH ×2 (07:50→20:06)
[2022-02-25 07:58] LABS: BASOPHILS % (AUTO) 0.4 % (0-1); EOSINOPHILS # (AUTO) 0.2 X10'3 (0-0.9); EOSINOPHILS % (AUTO) 1.3 % (0-6); HEMATOCRIT 26.8 % (42.0-52.0); HEMOGLOBIN 8.6 g/dl (14.0-17.9); LYMPHOCYTES # (AUTO) 0.2 X10'3 (1.1-4.8); LYMPHOCYTES % (AUTO) 1.9 % (21-51); MEAN CORPUSCULAR HEMOGLOBIN 26.7 PG (27.0-31.0); MEAN CORPUSCULAR HGB CONC 32.3 g/dL (33.0-36.5); MEAN CORPUSCULAR VOLUME 82.8 FL (78-98); MEAN PLATELET VOLUME 7.1 FL (7.4-10.4); MONOCYTES # (AUTO) 0.2 X10'3 (0-0.9); MONOCYTES % (AUTO) 1.9 % (2-12); NEUTROPHILS # (AUTO) 12.2 X10'3 (1.8-7.7); NEUTROPHILS % (AUTO) 94.5 % (42-75); PLATELET COUNT 332 X10'3 (140-440); RED BLOOD COUNT 3.23 X10'6 (4.70-6.10); RED CELL DISTRIBUTION WIDTH 17.8 % (11.5-14.5); WHITE BLOOD COUNT 12.9 X10'3 (4.5-11.0)
[2022-02-25] MEDS: acetylcysteine 200 MG/ml 4ml vial PO SCH ×2 (08:00→20:12)
[2022-02-25] MEDS: K and/or MAG REPLACEMENT MC SCH ×2 (08:00→19:21)
--- NOTE | 2022-02-25 08:24 | NUR ---
promotional table spacer PAGER ID: [phone] MESSAGE: Ben Doc, 0880G(Garcia) WBCs 12.9. Campbell JEAN BAPTISTE thank you
[2022-02-25 09:09] LABS: ALANINE AMINOTRANSFERASE 43 U/L (12-78); ALBUMIN 2.4 G/DL (3.4-5.0); ALBUMIN/GLOBULIN RATIO 0.6 (1.1-1.5); ALKALINE PHOSPHATASE 90 IU/L (46-116); ANION GAP 13 (8-16); ASPARTATE AMINO TRANSFERASE 19 U/L (10-37); BILIRUBIN,TOTAL 0.9 MG/DL (0.1-1.0); BLOOD UREA NITROGEN 39 MG/DL (7-18); CALCIUM 8.2 MG/DL (8.5-10.1); CHLORIDE 104 MMOL/L (99-107); GLUCOSE 157 MG/DL (70-104); MAGNESIUM 1.9 MG/DL (1.5-2.4); PHOSPHORUS 3.1 MG/DL (2.3-4.5); POTASSIUM 4.2 MMOL/L (3.5-5.1); SODIUM 136 MMOL/L (135-145); TOTAL CARBON DIOXIDE 19.4 MMOL/L (24-32); TOTAL PROTEIN 6.2 G/DL (6.4-8.2); eGFR 28 ML/MIN
--- NOTE | 2022-02-25 09:52 | NUR ---
Orthostatic VS held, see prior notes, BP in bed taken.
[2022-02-25] MEDS: insulin Lispro (HumaLOG) vial - multi-dose SQ SCH ×2 (18:53→21:03)
--- NOTE | 2022-02-25 18:55 | NUR ---
Discussed with patient need for bowel care r/t to no bowel movement since admit on 02/19. Patient declined MOM as he stated he feels like he is going to have one. Patient is in agreement with taking stool softner as ordered.
[2022-02-25] MEDS: atorvastatin 20mg tablet PO SCH (20:05)
--- NOTE | 2022-02-25 20:20 | NUR ---
Patient had c/o 5/10 chest pain with no radiation. MD notified with orders for EKG and one time weight based dose of lovenox. Order placed at this time.
[2022-02-25] MEDS ORDERED: enoxaparin 100mg/ml syringe SUBCUT STA (20:23)
--- NOTE | 2022-02-25 20:25 | NUR ---
Patient reports chest pain has resolved at this time. Will continue to monitor.
[2022-02-25] MEDS ORDERED: enoxaparin 30mg/0.3ml syringe SUBCUT STA (20:49)
[2022-02-25] MEDS ORDERED: enoxaparin 60mg/0.6ml syringe SUBCUT STA (20:50)
[2022-02-25] MEDS: insulin glargine (Lantus) pen - multi-dose SQ SCH (21:02)
[2022-02-26 02:00] VITALS: BP_SYST 115; BP_SYST 129; BP_SYST 132; BP_DIAS 49; BP_DIAS 60
[2022-02-26] MEDS: sodium bicarbonate (8.4%) inj. 50 MEQ in dextrose 5%-water 1,000 ML IV SCH ×2 (03:20→10:33)
[2022-02-26] MEDS: ondansetron/PF 4mg/2ml inj IV PRN (04:54)
[2022-02-26] MEDS: sodium chloride 0.45% 1,000 ML IV SCH ×2 (04:55→19:39)
[2022-02-26 06:00] VITALS: BP 174/64
[2022-02-26] MEDS ORDERED: nitroGLYCERIN-Tridil 50MG/D5W 250 ML IV ONE (07:28)
[2022-02-26] MEDS ORDERED: verapamil 2.5 mg/ml inj IV ONE (07:28)
[2022-02-26] MEDS ORDERED: fentaNYL/PF 50MCG/1 ML 2ML syringe ONE (07:29)
[2022-02-26] MEDS ORDERED: heparin 1,000unit/ml 10ml vial 10 ML ONE (07:29)
[2022-02-26] MEDS ORDERED: LIDOcaine 1% (10mg/ml)w/preservative inj. 20ml MDV ONE (07:29)
[2022-02-26] MEDS ORDERED: midazolam 1 mg/ML 2ml injection ONE (07:29)
[2022-02-26] MEDS ORDERED: iohexol 350 MG/ML 50ML vial IV ONE (07:30)
[2022-02-26] MEDS ORDERED: iohexol 350MG/ML 100ml bottle IV ONE ×2 (07:30→08:40)
[2022-02-26] MEDS: acetylcysteine 200 MG/ml 4ml vial PO SCH ×2 (08:00→20:50)
[2022-02-26] MEDS: K and/or MAG REPLACEMENT MC SCH ×2 (08:00→20:00)
[2022-02-26] MEDS ORDERED: ondansetron/PF 4mg/2ml inj ONE (08:11)
[2022-02-26 09:14] LABS: BASOPHILS % (AUTO) 0.1 % (0-1); EOSINOPHILS % (AUTO) 0.1 % (0-6); HEMATOCRIT 24.3 % (42.0-52.0); HEMOGLOBIN 7.9 g/dl (14.0-17.9); LYMPHOCYTES # (AUTO) 0.4 X10'3 (1.1-4.8); LYMPHOCYTES % (AUTO) 2.7 % (21-51); MEAN CORPUSCULAR HGB CONC 32.7 g/dL (33.0-36.5); MEAN CORPUSCULAR VOLUME 82.6 FL (78-98); MEAN PLATELET VOLUME 7.6 FL (7.4-10.4); MONOCYTES # (AUTO) 0.7 X10'3 (0-0.9); MONOCYTES % (AUTO) 4.5 % (2-12); NEUTROPHILS # (AUTO) 13.5 X10'3 (1.8-7.7); NEUTROPHILS % (AUTO) 92.6 % (42-75); PLATELET COUNT 253 X10'3 (140-440); RED BLOOD COUNT 2.94 X10'6 (4.70-6.10); RED CELL DISTRIBUTION WIDTH 17.7 % (11.5-14.5); WHITE BLOOD COUNT 14.6 X10'3 (4.5-11.0)
[2022-02-26 09:21] LABS: ALANINE AMINOTRANSFERASE 38 U/L (12-78); ALBUMIN 2.2 G/DL (3.4-5.0); ALBUMIN/GLOBULIN RATIO 0.6 (1.1-1.5); ALKALINE PHOSPHATASE 81 IU/L (46-116); ANION GAP 11 (8-16); ASPARTATE AMINO TRANSFERASE 18 U/L (10-37); BILIRUBIN,TOTAL 0.8 MG/DL (0.1-1.0); BLOOD UREA NITROGEN 45 MG/DL (7-18); BUN/CREATININE RATIO 14.9 (5.4-32.0); CALCIUM 7.9 MG/DL (8.5-10.1); CHLORIDE 99 MMOL/L (99-107); CREATININE 3.02 MG/DL (0.60-1.10); GLUCOSE 201 MG/DL (70-104); PHOSPHORUS 3.3 MG/DL (2.3-4.5); POTASSIUM 4.6 MMOL/L (3.5-5.1); SODIUM 132 MMOL/L (135-145); TOTAL CARBON DIOXIDE 21.7 MMOL/L (24-32); eGFR 20 ML/MIN
[2022-02-26] MEDS ORDERED: hydrALAZINE 20mg/ml inj. IV ONE (09:25)
[2022-02-26] MEDS ORDERED: hydrALAZINE 20mg/ml inj. IV PRN (09:25)
[2022-02-26] MEDS: aspirin 81mg tab.chew PO SCH (10:27)
[2022-02-26] MEDS: isosorbide mononitrate 30mg tab.SR.24H PO SCH (10:27)
[2022-02-26] MEDS: losartan 50mg tablet PO SCH (10:28)
[2022-02-26] MEDS: amLODIPine 5mg tablet PO SCH (10:29)
[2022-02-26] MEDS: amiodarone 200mg tablet PO SCH ×2 (10:29→20:47)
[2022-02-26] MEDS: duloxetine 30mg CAPSULE.DR PO SCH (10:29)
[2022-02-26] MEDS: multivitamins, therapeutics tablet PO SCH (10:30)
[2022-02-26] MEDS: docusate sod 100mg capsule PO SCH ×2 (10:30→20:47)
[2022-02-26 11:00] VITALS: BP 157/68
[2022-02-26] MEDS: hyDRALAzine 10mg tablet PO SCH ×2 (14:00→20:50)
[2022-02-26 15:00] VITALS: BP 158/69
[2022-02-26 18:00] VITALS: BP 153/69
--- NOTE | 2022-02-26 18:43 | NUR ---
Patient in room PCU 3015. I have received report from Brianne JEAN BAPTISTE and had the opportunity to ask questions and assume patient care.
[2022-02-26] MEDS: insulin Lispro (HumaLOG) vial - multi-dose SQ SCH (19:23)
[2022-02-26] MEDS: ondansetron 4mg rapidly disintigrating tab PO PRN (19:34)
[2022-02-26] MEDS: atorvastatin 20mg tablet PO SCH (20:51)
[2022-02-26] MEDS ORDERED: warfarin 4mg tablet PO ONE (21:00)
[2022-02-26] MEDS: insulin glargine (Lantus) pen - multi-dose SQ SCH (21:04)
[2022-02-26 22:00] VITALS: BP 136/64
[2022-02-27] VITALS (7 sets, daily range): BP systolic 108–151; BP diastolic 46–66
[2022-02-27] MEDS: hyDRALAzine 10mg tablet PO SCH ×4 (02:33→19:27)
--- NOTE | 2022-02-27 06:20 | NUR ---
Patient in room PCU 3015. I have received report from Priscilla JEAN BAPTISTE and had the opportunity to ask questions and assume patient care.
--- NOTE | 2022-02-27 06:36 | NUR ---
Problems reprioritized. Patient report given, questions answered & plan of care reviewed with DOMINGO JEAN BAPTISTE.
[2022-02-27] MEDS: ondansetron 4mg rapidly disintigrating tab PO PRN (07:37)
[2022-02-27 07:43] LABS: BASOPHILS % (AUTO) 0.2 % (0-1); EOSINOPHILS % (AUTO) 0 % (0-6); HEMATOCRIT 22.9 % (42.0-52.0); HEMOGLOBIN 7.3 g/dl (14.0-17.9); LYMPHOCYTES # (AUTO) 0.3 X10'3 (1.1-4.8); MEAN CORPUSCULAR HEMOGLOBIN 25.9 PG (27.0-31.0); MEAN PLATELET VOLUME 7.7 FL (7.4-10.4); MONOCYTES # (AUTO) 0.9 X10'3 (0-0.9); MONOCYTES % (AUTO) 9.4 % (2-12); NEUTROPHILS # (AUTO) 8.8 X10'3 (1.8-7.7); NEUTROPHILS % (AUTO) 87.4 % (42-75); PLATELET COUNT 221 X10'3 (140-440); RED BLOOD COUNT 2.83 X10'6 (4.70-6.10); RED CELL DISTRIBUTION WIDTH 17.8 % (11.5-14.5); WHITE BLOOD COUNT 10.1 X10'3 (4.5-11.0)
[2022-02-27 07:46] LABS: ALANINE AMINOTRANSFERASE 37 U/L (12-78); ALBUMIN 1.9 G/DL (3.4-5.0); ALBUMIN/GLOBULIN RATIO 0.5 (1.1-1.5); ALKALINE PHOSPHATASE 72 IU/L (46-116); ANION GAP 11 (8-16); ASPARTATE AMINO TRANSFERASE 23 U/L (10-37); BILIRUBIN,TOTAL 0.7 MG/DL (0.1-1.0); BLOOD UREA NITROGEN 55 MG/DL (7-18); CALCIUM 7.3 MG/DL (8.5-10.1); CHLORIDE 100 MMOL/L (99-107); CREATININE 3.06 MG/DL (0.60-1.10); GLUCOSE 197 MG/DL (70-104); MAGNESIUM 2.2 MG/DL (1.5-2.4); PHOSPHORUS 3.7 MG/DL (2.3-4.5); POTASSIUM 4.2 MMOL/L (3.5-5.1); SODIUM 132 MMOL/L (135-145); TOTAL CARBON DIOXIDE 21.3 MMOL/L (24-32); TOTAL PROTEIN 5.6 G/DL (6.4-8.2); eGFR 20 ML/MIN
[2022-02-27 07:48] LABS: RHEUM FACTOR QUAL REFLEX TITER NEGATIVE (Neg)
[2022-02-27] MEDS: K and/or MAG REPLACEMENT MC SCH ×2 (08:00→20:00)
[2022-02-27] MEDS: docusate sod 100mg capsule PO SCH ×2 (08:00→19:28)
[2022-02-27] MEDS: acetylcysteine 200 MG/ml 4ml vial PO SCH ×2 (10:13→11:44)
[2022-02-27] MEDS: isosorbide mononitrate 30mg tab.SR.24H PO SCH (10:14)
[2022-02-27] MEDS: multivitamins, therapeutics tablet PO SCH (10:17)
[2022-02-27] MEDS: amLODIPine 5mg tablet PO SCH (10:17)
[2022-02-27] MEDS: losartan 50mg tablet PO SCH (10:18)
[2022-02-27] MEDS: aspirin 81mg tab.chew PO SCH (10:18)
[2022-02-27] MEDS: duloxetine 30mg CAPSULE.DR PO SCH (10:18)
[2022-02-27] MEDS: amiodarone 200mg tablet PO SCH ×2 (10:18→19:22)
[2022-02-27] MEDS: insulin Lispro (HumaLOG) vial - multi-dose SQ SCH ×3 (10:26→19:22)
--- NOTE | 2022-02-27 11:43 | NUR ---
Initial: Pt admitted w/ syncope and acute on chronic renal failure per EMR. Currently on Carb Controlled diet initially w/ 100% intake from 02/23- though has now been mostly 0-25% since then. Attempted to interview pt though he was sleeping and did not wake to verbal cues. RN states that pt has been feeling nauseas and has not had much of an appetite but drinks plenty of fluids; pt may be open to trying ONS. RN also states that pt started having diarrhea last night, 6 day constipation resolving. Noted A1c 7.4 on 02/01/22 which is appropriate for age per ADA guidelines, DM ed not warranted at this time Will continue to monitor. Recs: 1. Continue Carb controlled diet as tolerated 2. Glucerna BIDBD; pending MD verification 3. Bowel care per rx 4. Scaled wts Addendum: 02/27/22 at [address] Amended: Links added.
--- NOTE | 2022-02-27 16:57 | NUR ---
Paged Dr. Ochoa regarding possible DVT on pt. PAGER ID: [phone] MESSAGE: [id number], Radha Aviles. Pt has a painful hard lump behind their left knee upper left calf. Please advise. Brianne [facility] [phone]
[2022-02-27] MEDS: NUT.TX.GLUC.INTOLER,LAC-FR,SOY (GLUCERNA) 237 ML PO SCH (17:30)
--- NOTE | 2022-02-27 18:26 | NUR ---
Problems reprioritized. Patient report given, questions answered & plan of care reviewed with Priscilla JEAN BAPTISTE patient stable at transfer of care.
[2022-02-27] MEDS ORDERED: warfarin 4mg tablet PO ONE (21:00)
[2022-02-27] MEDS: atorvastatin 20mg tablet PO SCH (21:14)
[2022-02-27] MEDS: insulin glargine (Lantus) pen - multi-dose SQ SCH (21:22)
[2022-02-27] MEDS: mag hydrox/Alum hydrox/simeth 30ml oral suspension PO PRN (22:38)
[2022-02-28] VITALS (9 sets, daily range): BP systolic 111–146; BP diastolic 54–94
[2022-02-28] MEDS: hyDRALAzine 10mg tablet PO SCH ×4 (01:31→20:50)
--- NOTE | 2022-02-28 06:40 | NUR ---
Problems reprioritized. Patient report given, questions answered & plan of care reviewed with LILIANA JEAN BAPTISTE.
[2022-02-28] MEDS: NUT.TX.GLUC.INTOLER,LAC-FR,SOY (GLUCERNA) 237 ML PO SCH (07:30)
[2022-02-28] MEDS: docusate sod 100mg capsule PO SCH ×2 (08:00→20:00)
[2022-02-28] MEDS: K and/or MAG REPLACEMENT MC SCH ×2 (08:00→20:00)
[2022-02-28] MEDS: amLODIPine 5mg tablet PO SCH (08:40)
[2022-02-28] MEDS: amiodarone 200mg tablet PO SCH ×2 (08:40→20:50)
[2022-02-28] MEDS: duloxetine 30mg CAPSULE.DR PO SCH (08:41)
[2022-02-28] MEDS: losartan 50mg tablet PO SCH (08:41)
[2022-02-28] MEDS: multivitamins, therapeutics tablet PO SCH (08:41)
[2022-02-28] MEDS: aspirin 81mg tab.chew PO SCH (08:41)
[2022-02-28] MEDS: isosorbide mononitrate 30mg tab.SR.24H PO SCH (08:41)
[2022-02-28 10:54] LABS: BASOPHILS % (AUTO) 0.2 % (0-1); EOSINOPHILS % (AUTO) 0.3 % (0-6); LYMPHOCYTES # (AUTO) 0.6 X10'3 (1.1-4.8); LYMPHOCYTES % (AUTO) 8.1 % (21-51); MEAN CORPUSCULAR HEMOGLOBIN 26.5 PG (27.0-31.0); MEAN CORPUSCULAR HGB CONC 32.5 g/dL (33.0-36.5); MEAN CORPUSCULAR VOLUME 81.5 FL (78-98); MONOCYTES # (AUTO) 0.7 X10'3 (0-0.9); MONOCYTES % (AUTO) 9.2 % (2-12); NEUTROPHILS # (AUTO) 6.3 X10'3 (1.8-7.7); NEUTROPHILS % (AUTO) 82.2 % (42-75); PLATELET COUNT 206 X10'3 (140-440); RED CELL DISTRIBUTION WIDTH 18.1 % (11.5-14.5); WHITE BLOOD COUNT 7.6 X10'3 (4.5-11.0)
[2022-02-28 10:57] LABS: HEMATOCRIT 21.2 % (42.0-52.0); HEMOGLOBIN 6.9 g/dl (14.0-17.9)
--- NOTE | 2022-02-28 11:01 | NUR ---
Received call from lab patients hgb 6.9 and hct 21.2, paged dr. norwood awaiting call back for orders.
[2022-02-28 11:09] LABS: ALANINE AMINOTRANSFERASE 40 U/L (12-78); ALBUMIN 1.7 G/DL (3.4-5.0); ALBUMIN/GLOBULIN RATIO 0.5 (1.1-1.5); ALKALINE PHOSPHATASE 76 IU/L (46-116); ANION GAP 12 (8-16); ASPARTATE AMINO TRANSFERASE 30 U/L (10-37); BILIRUBIN,TOTAL 0.5 MG/DL (0.1-1.0); BLOOD UREA NITROGEN 66 MG/DL (7-18); CALCIUM 7.3 MG/DL (8.5-10.1); CHLORIDE 101 MMOL/L (99-107); GLUCOSE 127 MG/DL (70-104); POTASSIUM 4.1 MMOL/L (3.5-5.1); SODIUM 132 MMOL/L (135-145); TOTAL CARBON DIOXIDE 19.5 MMOL/L (24-32); TOTAL PROTEIN 5.3 G/DL (6.4-8.2); eGFR 18 ML/MIN
--- NOTE | 2022-02-28 14:24 | NUR ---
1 unit prbcs started
--- NOTE | 2022-02-28 14:26 | NUR ---
physical therapy unable to work with patient, currently receiving blood and patient states he feels week today. will try again tomorrow.
[2022-02-28] MEDS: insulin Lispro (HumaLOG) vial - multi-dose SQ SCH (14:35)
[2022-02-28] MEDS: ondansetron 4mg rapidly disintigrating tab PO PRN (17:53)
--- NOTE | 2022-02-28 18:27 | NUR ---
Patient in room PCU 3015. I have received report from MARKEL CEVALLOS and had the opportunity to ask questions and assume patient care.
[2022-02-28 19:04] LABS: BASOPHILS % (AUTO) 0.3 % (0-1); EOSINOPHILS # (AUTO) 0.1 X10'3 (0-0.9); EOSINOPHILS % (AUTO) 0.6 % (0-6); HEMATOCRIT 26.4 % (42.0-52.0); HEMOGLOBIN 8.8 g/dl (14.0-17.9); LYMPHOCYTES # (AUTO) 0.8 X10'3 (1.1-4.8); LYMPHOCYTES % (AUTO) 7.2 % (21-51); MEAN CORPUSCULAR HEMOGLOBIN 26.9 PG (27.0-31.0); MEAN CORPUSCULAR HGB CONC 33.3 g/dL (33.0-36.5); MEAN CORPUSCULAR VOLUME 80.7 FL (78-98); MONOCYTES % (AUTO) 9.4 % (2-12); NEUTROPHILS # (AUTO) 8.9 X10'3 (1.8-7.7); NEUTROPHILS % (AUTO) 82.5 % (42-75); PLATELET COUNT 227 X10'3 (140-440); RED BLOOD COUNT 3.27 X10'6 (4.70-6.10); RED CELL DISTRIBUTION WIDTH 17.4 % (11.5-14.5); WHITE BLOOD COUNT 10.8 X10'3 (4.5-11.0)
[2022-02-28] MEDS: atorvastatin 20mg tablet PO SCH (20:55)
[2022-02-28] MEDS ORDERED: warfarin 5mg tablet PO ONE (21:00)
[2022-02-28] MEDS: insulin glargine (Lantus) pen - multi-dose SQ SCH (21:31)
[2022-03-01] VITALS (9 sets, daily range): BP systolic 82–147; BP diastolic 42–67
[2022-03-01] MEDS: ondansetron 4mg rapidly disintigrating tab PO PRN ×3 (02:00→18:57)
[2022-03-01] MEDS: hyDRALAzine 10mg tablet PO SCH ×4 (02:01→21:00)
--- NOTE | 2022-03-01 04:01 | NUR ---
PT BECAME MORE NAUSEATED WHEN GOT UP TO GO TO BATHROOM.
--- NOTE | 2022-03-01 06:27 | NUR ---
Problems reprioritized. Patient report given, questions answered & plan of care reviewed with liliane Chaparro.
[2022-03-01 07:10] LABS: % IRON SATURATION 4 % (11-46); IRON 9 UG/DL (53-167); TOTAL IRON BINDING CAPACITY 208 UG/DL (259-388)
[2022-03-01] MEDS: isosorbide mononitrate 30mg tab.SR.24H PO SCH (07:37)
[2022-03-01] MEDS: aspirin 81mg tab.chew PO SCH (07:38)
[2022-03-01] MEDS: duloxetine 30mg CAPSULE.DR PO SCH (07:38)
[2022-03-01] MEDS: amiodarone 200mg tablet PO SCH ×2 (07:39→21:00)
[2022-03-01] MEDS: multivitamins, therapeutics tablet PO SCH (07:39)
[2022-03-01] MEDS: amLODIPine 5mg tablet PO SCH (07:39)
[2022-03-01] MEDS: losartan 50mg tablet PO SCH (07:40)
[2022-03-01] MEDS: mag hydrox/Alum hydrox/simeth 30ml oral suspension PO PRN (07:40)
[2022-03-01 07:41] LABS: FERRITIN 136 NG/ML (26-388)
[2022-03-01] MEDS: docusate sod 100mg capsule PO SCH ×2 (08:00→20:00)
[2022-03-01] MEDS: K and/or MAG REPLACEMENT MC SCH ×2 (08:00→20:00)
[2022-03-01 08:37] LABS: ANTINUCLEAR ANTIBODIES Negative (Negative); COMPLEMENT C3, SERUM 149 mg/dL (82-167); COMPLEMENT C4, SERUM 36 mg/dL (12-38); HBSAG SCREEN Negative (Negative); HEPATITIS C ANTIBODY <0.1 s/co ratio (0.0-0.9)
[2022-03-01] MEDS: acetaminophen 325mg tablet PO PRN ×2 (09:25→15:42)
[2022-03-01] MEDS: insulin Lispro (HumaLOG) vial - multi-dose SQ SCH ×3 (09:27→18:50)
[2022-03-01 09:43] LABS: ALANINE AMINOTRANSFERASE 64 U/L (12-78); ALBUMIN 1.8 G/DL (3.4-5.0); ALBUMIN/GLOBULIN RATIO 0.6 (1.1-1.5); ALKALINE PHOSPHATASE 108 IU/L (46-116); ANION GAP 12 (8-16); ASPARTATE AMINO TRANSFERASE 45 U/L (10-37); BILIRUBIN,TOTAL 0.6 MG/DL (0.1-1.0); BLOOD UREA NITROGEN 66 MG/DL (7-18); BUN/CREATININE RATIO 18.5 (5.4-32.0); CALCIUM 7.1 MG/DL (8.5-10.1); CHLORIDE 97 MMOL/L (99-107); CREATININE 3.56 MG/DL (0.60-1.10); GLUCOSE 222 MG/DL (70-104); POTASSIUM 4.2 MMOL/L (3.5-5.1); SODIUM 128 MMOL/L (135-145); TOTAL CARBON DIOXIDE 18.7 MMOL/L (24-32); eGFR 17 ML/MIN
--- NOTE | 2022-03-01 11:00 | NUR ---
Spoke with Dr. Rogel in regards to mass on left leg; Per Dr. Dinero that will be worked up as an outpatient; Also verbal order to hold Coumadin. Lyn [facility]
--- NOTE | 2022-03-01 12:44 | NUR ---
Page to PAGER ID: [phone] MESSAGE: Dr. Rogel pt in room 3015A Stefan Garcia BP was soft at 100/46 would you want me to hold his hydralazine? also we're you still thinking about giving him fluids for his positive orthos? Lyn Tracy
--- NOTE | 2022-03-01 12:46 | NUR ---
Telephone order Per Dr. Rogel telephone order hold hydral and give 250CC bolus of NS over 15 minutes; [facility]
[2022-03-01] MEDS ORDERED: normal saline 1000ml 1,000 ML IV ONE (12:50)
--- NOTE | 2022-03-01 15:48 | NUR ---
Page to promotional table spacer PAGER ID: [phone] MESSAGE: Dr. Rogel pt in room 6308Y Stefan Garcia is complaining of new neck pain 5/10 which is a new pain for him. Not sure if you think it's a concerning symptom to you, so just wanted to shoot you a message. Lyn Tracy
[2022-03-01 17:30] LABS: A/G RATIO 0.7 (0.7-1.7); ALBUMIN 2.1 g/dL (2.9-4.4); BETA GLOBULIN 0.9 g/dL (0.7-1.3); GAMMA GLOBULIN 0.7 g/dL (0.4-1.8); M-SPIKE Not Observed g/dL (Not Observed); PROTEIN, TOTAL, SERUM 5.1 g/dL (6.0-8.5)
[2022-03-01] MEDS: NUT.TX.GLUC.INTOLER,LAC-FR,SOY (GLUCERNA) 237 ML PO SCH (17:30)
[2022-03-01 17:31] LABS: SODIUM,URINE RANDOM < 15 MEQ/L
--- NOTE | 2022-03-01 18:06 | NUR ---
Problems reprioritized. Patient report given, questions answered & plan of care reviewed with Martine JEAN BAPTISTE.
[2022-03-01] MEDS: atorvastatin 20mg tablet PO SCH (21:00)
[2022-03-01] MEDS ORDERED: warfarin 7.5mg tablet PO ONE (21:00)
[2022-03-01] MEDS: insulin glargine (Lantus) pen - multi-dose SQ SCH (21:03)
[2022-03-02] VITALS (8 sets, daily range): BP systolic 106–150; BP diastolic 49–69
[2022-03-02] MEDS: hyDRALAzine 10mg tablet PO SCH ×4 (01:59→21:40)
[2022-03-02] MEDS: ondansetron 4mg rapidly disintigrating tab PO PRN (02:05)
--- NOTE | 2022-03-02 06:24 | NUR ---
Problems reprioritized. Patient report given, questions answered & plan of care reviewed with MARKEL CASTORENA.
[2022-03-02] MEDS: acetaminophen 325mg tablet PO PRN ×3 (07:15→21:48)
[2022-03-02] MEDS: isosorbide mononitrate 30mg tab.SR.24H PO SCH (07:17)
[2022-03-02] MEDS: multivitamins, therapeutics tablet PO SCH (07:18)
[2022-03-02] MEDS: amLODIPine 5mg tablet PO SCH (07:18)
[2022-03-02] MEDS: losartan 50mg tablet PO SCH (07:18)
[2022-03-02] MEDS: amiodarone 200mg tablet PO SCH ×2 (07:18→21:39)
[2022-03-02] MEDS: docusate sod 100mg capsule PO SCH ×2 (07:18→21:39)
[2022-03-02] MEDS: aspirin 81mg tab.chew PO SCH (07:19)
[2022-03-02] MEDS: duloxetine 30mg CAPSULE.DR PO SCH (07:19)
[2022-03-02] MEDS: NUT.TX.GLUC.INTOLER,LAC-FR,SOY (GLUCERNA) 237 ML PO SCH ×2 (07:30→17:49)
[2022-03-02] MEDS: K and/or MAG REPLACEMENT MC SCH ×2 (08:00→19:09)
[2022-03-02 08:21] LABS: BASOPHILS % (AUTO) 0.1 % (0-1); EOSINOPHILS % (AUTO) 0.1 % (0-6); HEMATOCRIT 26.7 % (42.0-52.0); HEMOGLOBIN 8.8 g/dl (14.0-17.9); LYMPHOCYTES # (AUTO) 0.8 X10'3 (1.1-4.8); LYMPHOCYTES % (AUTO) 4.4 % (21-51); MEAN CORPUSCULAR HEMOGLOBIN 26.8 PG (27.0-31.0); MEAN CORPUSCULAR HGB CONC 33.1 g/dL (33.0-36.5); MONOCYTES # (AUTO) 0.9 X10'3 (0-0.9); MONOCYTES % (AUTO) 5.4 % (2-12); NEUTROPHILS # (AUTO) 15.4 X10'3 (1.8-7.7); PLATELET COUNT 211 X10'3 (140-440); RED CELL DISTRIBUTION WIDTH 17.4 % (11.5-14.5); WHITE BLOOD COUNT 17.1 X10'3 (4.5-11.0)
[2022-03-02 08:37] LABS: ALANINE AMINOTRANSFERASE 72 U/L (12-78); ALBUMIN 1.7 G/DL (3.4-5.0); ALBUMIN/GLOBULIN RATIO 0.4 (1.1-1.5); ALKALINE PHOSPHATASE 146 IU/L (46-116); ANION GAP 10 (8-16); ASPARTATE AMINO TRANSFERASE 50 U/L (10-37); BILIRUBIN,TOTAL 0.6 MG/DL (0.1-1.0); BLOOD UREA NITROGEN 72 MG/DL (7-18); BUN/CREATININE RATIO 19.7 (5.4-32.0); CALCIUM 7.4 MG/DL (8.5-10.1); CHLORIDE 100 MMOL/L (99-107); CREATININE 3.66 MG/DL (0.60-1.10); GLUCOSE 131 MG/DL (70-104); POTASSIUM 4.1 MMOL/L (3.5-5.1); SODIUM 130 MMOL/L (135-145); TOTAL CARBON DIOXIDE 19.7 MMOL/L (24-32); TOTAL PROTEIN 5.8 G/DL (6.4-8.2); eGFR 16 ML/MIN
--- NOTE | 2022-03-02 09:30 | NUR ---
24 hour urine START TIME 929 [address] [facility] Addendum: 03/02/22 at 1348 by Lyn Koch RN [facility]
--- NOTE | 2022-03-02 09:33 | NUR ---
Reassessment: PO intake remains poor, documented with 25-50% PO intake of meals however refused breakfast and most of lunch 4. Pending documentation of PO intake for today. Pt now to receive Glucerna BIDBD, pending documentation of first ONS acceptance. Noted pt continues to be documented with nausea, receiving PRN antiemetic. IF PO intake of meals does not improve pt would benefit from ONS change to Ensure Enlive for additional nutrition with possible frequency increase to TID. LBM 4/5, documented with two BMs. Will continue to follow closely and make recommendations as appropriate pending documentation of ONS acceptance. Recommendations: 1. Continue carb controlled diet; consider liberalizing to regular if PO intake does not improve 2. Glucerna BIDBD; consider changing to Ensure Enlive and possibly increasing frequency to TID if PO intake does not improve 3. Bowel care per rx 4. Scaled wt this admit; weekly scaled weights thereafter Addendum: 03/02/22 at [address] Amended: Links added.
[2022-03-02] MEDS: insulin Lispro (HumaLOG) vial - multi-dose SQ SCH ×2 (14:02→19:30)
--- NOTE | 2022-03-02 18:29 | NUR ---
Problems reprioritized. Patient report given, questions answered & plan of care reviewed with Abbey JEAN BAPTISTE
--- NOTE | 2022-03-02 18:50 | NUR ---
Patient in room PCU 3015. I have received report from Lyn JEAN BAPTISTE and had the opportunity to ask questions and assume patient care.
[2022-03-02] MEDS ORDERED: warfarin 7.5mg tablet PO ONE (21:00)
[2022-03-02] MEDS: atorvastatin 20mg tablet PO SCH (21:39)
[2022-03-02] MEDS: insulin glargine (Lantus) pen - multi-dose SQ SCH (21:43)
--- NOTE | 2022-03-02 22:15 | NUR ---
Pt only had 300mls in the 24 hour urine jug. Pt states he believes some of his urine was dumped into the toilet. Called the lab who advised that we need to restart the 24hr urine. A new jug was retrieved from the lab, place on ice. pts first void was discarded and the 24hr was started at 2215. Pt, and nurses aides were educated on the importance of saving and monitoring ALL of the pts urine output.
[2022-03-03] VITALS (10 sets, daily range): BP systolic 95–132; BP diastolic 46–58
[2022-03-03] MEDS: hyDRALAzine 10mg tablet PO SCH ×4 (02:53→21:39)
--- NOTE | 2022-03-03 06:44 | NUR ---
Problems reprioritized. Patient report given, questions answered & plan of care reviewed with Beth JEAN BAPTISTE.
--- NOTE | 2022-03-03 06:50 | NUR ---
Patient in room PCU 3015. I have received report from MARKEL Potter and had the opportunity to ask questions and assume patient care.
[2022-03-03] MEDS: docusate sod 100mg capsule PO SCH ×2 (08:00→21:40)
[2022-03-03] MEDS: K and/or MAG REPLACEMENT MC SCH ×2 (08:00→20:00)
[2022-03-03] MEDS: aspirin 81mg tab.chew PO SCH (08:15)
[2022-03-03] MEDS: duloxetine 30mg CAPSULE.DR PO SCH (08:15)
[2022-03-03] MEDS: multivitamins, therapeutics tablet PO SCH (08:15)
[2022-03-03] MEDS: isosorbide mononitrate 30mg tab.SR.24H PO SCH (08:15)
[2022-03-03] MEDS: losartan 50mg tablet PO SCH (08:16)
[2022-03-03] MEDS: amLODIPine 5mg tablet PO SCH (08:17)
[2022-03-03] MEDS: NUT.TX.GLUC.INTOLER,LAC-FR,SOY (GLUCERNA) 237 ML PO SCH ×2 (08:18→17:30)
[2022-03-03] MEDS: amiodarone 200mg tablet PO SCH ×2 (08:18→21:40)
[2022-03-03 09:17] LABS: ALBUMIN 1.5 G/DL (3.4-5.0); BLOOD UREA NITROGEN 83 MG/DL (7-18); BUN/CREATININE RATIO 19.2 (5.4-32.0); CALCIUM 7.7 MG/DL (8.5-10.1); CHLORIDE 98 MMOL/L (99-107); CREATININE 4.33 MG/DL (0.60-1.10); GLUCOSE 113 MG/DL (70-104); POTASSIUM 4.2 MMOL/L (3.5-5.1); SODIUM 131 MMOL/L (135-145); eGFR 13 ML/MIN
[2022-03-03 09:18] LABS: ANION GAP 14 (8-16); TOTAL CARBON DIOXIDE 18.7 MMOL/L (24-32)
[2022-03-03 11:36] LABS: BASOPHILS % (AUTO) 0 % (0-1); EOSINOPHILS % (AUTO) 0.1 % (0-6); HEMATOCRIT 25.8 % (42.0-52.0); HEMOGLOBIN 8.4 g/dl (14.0-17.9); LYMPHOCYTES # (AUTO) 0.8 X10'3 (1.1-4.8); LYMPHOCYTES % (AUTO) 3.9 % (21-51); MEAN CORPUSCULAR HEMOGLOBIN 26.2 PG (27.0-31.0); MEAN CORPUSCULAR HGB CONC 32.7 g/dL (33.0-36.5); MEAN CORPUSCULAR VOLUME 80.2 FL (78-98); MEAN PLATELET VOLUME 8.2 FL (7.4-10.4); MONOCYTES # (AUTO) 1.1 X10'3 (0-0.9); NEUTROPHILS # (AUTO) 19.3 X10'3 (1.8-7.7); PLATELET COUNT 224 X10'3 (140-440); RED BLOOD COUNT 3.22 X10'6 (4.70-6.10); RED CELL DISTRIBUTION WIDTH 17.9 % (11.5-14.5); WHITE BLOOD COUNT 21.2 X10'3 (4.5-11.0)
[2022-03-03] MEDS: insulin Lispro (HumaLOG) vial - multi-dose SQ SCH ×2 (14:10→18:48)
[2022-03-03 17:46] LABS: ALBUMIN, UR 47.4 % (.); ALPHA-1-GLOBULIN,UR 1.7 % (.); ALPHA-2-GLOBULIN,UR 12.8 % (.); BETA GLOBULIN, UR 18.2 % (.); GAMMA GLOBULIN,UR 19.9 % (.); PROTEIN,TOTAL,URINE 252.3 mg/dL (Not Estab.)
--- NOTE | 2022-03-03 18:35 | NUR ---
Problems reprioritized. Patient report given, questions answered & plan of care reviewed with MARKEL Dove.
[2022-03-03] MEDS: cefTRIAXone 1g/NS 100ml IVPB 100 ML IV SCH (18:52)
--- NOTE | 2022-03-03 19:40 | NUR ---
BOILERS INSPECTOR NOTED ELEVATED ST WAVE WORSENING OVER THE LAST FEW DAYS SINCE ADMISSION. SHOWED DR. TEAGUE ON ROUNDS. ORDERS TO MONITOR AND REPEAT EKG IN AM. PT C/O FEELING LEGHARGIC AND "NOT WELL". WILL CLOSELY MONITOR THROUGH THE NIGHT. VITAL SIGNS STABLE. Addendum: 03/03/22 at 1942 by Petty Diamond RN NO COMPLAINTS OF CHEST PAIN
[2022-03-03] MEDS ORDERED: warfarin 3mg tablet PO ONE (21:00)
[2022-03-03] MEDS: insulin glargine (Lantus) pen - multi-dose SQ SCH (21:36)
[2022-03-03] MEDS: atorvastatin 20mg tablet PO SCH (21:38)
[2022-03-04 00:19] LABS: UREA NITROGEN 24HR,URINE 2.5 GM/24HR (7-20)
[2022-03-04] MEDS: ondansetron 4mg rapidly disintigrating tab PO PRN (01:12)
[2022-03-04 02:00] VITALS: BP 158/53
[2022-03-04] MEDS: hyDRALAzine 10mg tablet PO SCH ×3 (02:24→14:00)
[2022-03-04 06:00] VITALS: BP 144/54
--- NOTE | 2022-03-04 06:46 | NUR ---
Patient in room PCU 3015. I have received report from MARKEL Dove and had the opportunity to ask questions and assume patient care.
[2022-03-04 06:52] LABS: BASOPHILS % (AUTO) 0.1 % (0-1); EOSINOPHILS % (AUTO) 0.1 % (0-6); HEMATOCRIT 26.4 % (42.0-52.0); HEMOGLOBIN 8.7 g/dl (14.0-17.9); LYMPHOCYTES # (AUTO) 0.6 X10'3 (1.1-4.8); LYMPHOCYTES % (AUTO) 2.9 % (21-51); MEAN CORPUSCULAR HEMOGLOBIN 26.3 PG (27.0-31.0); MEAN CORPUSCULAR HGB CONC 32.8 g/dL (33.0-36.5); MEAN CORPUSCULAR VOLUME 80.2 FL (78-98); MEAN PLATELET VOLUME 8.4 FL (7.4-10.4); MONOCYTES # (AUTO) 1.1 X10'3 (0-0.9); MONOCYTES % (AUTO) 4.9 % (2-12); NEUTROPHILS # (AUTO) 19.9 X10'3 (1.8-7.7); PLATELET COUNT 274 X10'3 (140-440); RED BLOOD COUNT 3.29 X10'6 (4.70-6.10); RED CELL DISTRIBUTION WIDTH 17.9 % (11.5-14.5); WHITE BLOOD COUNT 21.6 X10'3 (4.5-11.0)
[2022-03-04 07:25] LABS: ANISOCYTOSIS 1+; BURR CELLS 2+; PLATELET ESTIMATE NORMAL; POLYCHROMASIA FEW; SCHISTOCYTES FEW
[2022-03-04 07:27] LABS: ALBUMIN 1.5 G/DL (3.4-5.0); ANION GAP 14 (8-16); BLOOD UREA NITROGEN 97 MG/DL (7-18); CALCIUM 7.7 MG/DL (8.5-10.1); CHLORIDE 99 MMOL/L (99-107); CREATININE 4.86 MG/DL (0.60-1.10); GLUCOSE 153 MG/DL (70-104); POTASSIUM 4.5 MMOL/L (3.5-5.1); SODIUM 132 MMOL/L (135-145); TOTAL CARBON DIOXIDE 18.6 MMOL/L (24-32); eGFR 12 ML/MIN
[2022-03-04] MEDS: NUT.TX.GLUC.INTOLER,LAC-FR,SOY (GLUCERNA) 237 ML PO SCH (07:30)
[2022-03-04] MEDS: docusate sod 100mg capsule PO SCH ×2 (08:00→20:00)
[2022-03-04] MEDS: K and/or MAG REPLACEMENT MC SCH ×2 (08:00→20:00)
[2022-03-04] MEDS: cefTRIAXone 1g/NS 100ml IVPB 100 ML IV SCH (08:41)
[2022-03-04] MEDS: multivitamins, therapeutics tablet PO SCH (08:41)
[2022-03-04] MEDS: isosorbide mononitrate 30mg tab.SR.24H PO SCH (08:41)
[2022-03-04] MEDS: duloxetine 30mg CAPSULE.DR PO SCH (08:43)
[2022-03-04] MEDS: amiodarone 200mg tablet PO SCH ×2 (08:43→22:12)
[2022-03-04] MEDS: amLODIPine 5mg tablet PO SCH (08:43)
[2022-03-04] MEDS: aspirin 81mg tab.chew PO SCH (08:44)
[2022-03-04] MEDS: losartan 50mg tablet PO SCH (08:44)
--- NOTE | 2022-03-04 08:56 | NUR ---
Had ECG done and showed abnormal. Charge nurse had it sent down to ER for further evaluation.
[2022-03-04] MEDS: insulin Lispro (HumaLOG) vial - multi-dose SQ SCH ×2 (09:06→13:57)
[2022-03-04] MEDS ORDERED: PERFLUTREN PROTEIN-A MICROSPHR (Optison) 0.22 MG/ML 3ML VIAL IV ONE (09:15)
[2022-03-04] MEDS ORDERED: normal saline 1000ml 250 ML IV PRN (09:40)
[2022-03-04] MEDS ORDERED: heparin 1,000 units/ml 10ml inj HE ONE ×2 (09:50)
--- NOTE | 2022-03-04 10:20 | NUR ---
PAGER ID: [phone] MESSAGE: Beth [phone]...Stefan Garcia Room 3010B Critical troponin 5901. Cardiology is aware.
--- NOTE | 2022-03-04 10:22 | NUR ---
EKG WAS DONE THIS MORNING DUE TO THE LIBRARY SERVICES COORDINATOR NOTICING MONITOR CHANGES. ER DOC CALLED IT A STEMI. NATALIA METZ -CARDIOLOGY COMMUNITY ARTS OFFICER REVIEWED THE EKG AND DISCUSSED IT WITH DR GUERRERO. TROPONIN ORDERED WHICH CAME BACK AT OVER 7000. NATALIA -COMMUNITY ARTS OFFICER NOTIFIED OF THIS ALSO. PATIENT DENIES CHEST PAIN OR ANY OTHER SYMPTOMS. VITALS WNL. DISCUSSED ALL WITH PRIMARY RN KI
[2022-03-04 11:00] VITALS: BP 85/47
[2022-03-04] MEDS ORDERED: heparin 1,000unit/ml 10ml vial 10 ML ONE (11:18)
[2022-03-04] MEDS ORDERED: midazolam 1 mg/ML 2ml injection ONE (11:19)
[2022-03-04] MEDS ORDERED: fentaNYL/PF 50MCG/1 ML 2ML syringe ONE (11:19)
--- NOTE | 2022-03-04 12:00 | NUR ---
Not able to do orthostatic VS due to patient gone to various procedures.
--- NOTE | 2022-03-04 13:32 | NUR ---
Reassessment: PO intake continues to decline, down to 0-25% PO intake since last RD assessment 03/02. Noted pt documented to have refused breakfast this morning, possibly r/t change in status as pt s/p EKG this morning showing ST elevation per EMR. Pt receiving a Glucerna BIDBD, documented with 25% of first ONS followed by 100% at second ONS, though 0% PO intake of three succeeding ONS. Recommend discontinuing ONS if pt continues with poor acceptance. Attempted visit with pt at bedside however pt out of room getting TDC placement, to start dialysis per EMR. Pt now appropriately on a regular diet, hopeful that PO intake will improve with new diet. IF PO intake does not improve pt would benefit from NGT placement for TF. Given insufficient PO intake for seven days, LLE 2+ mild edema, and mild weakness pt currently meets criteria for malnutrition. LBM 03/04. Will continue to follow closely. Recommendations: 1. Continue regular diet in view of poor PO intake with electrolytes WNL with the exception of hyponatremia 2. Glucerna BIDBD; if PO intake does not improve consider changing to Ensure Enlive versus Nepro and monitor need to increase frequency; discontinue ONS if acceptance does not improve 3. Consider NGT for supplemental versus full nutrition support given poor PO intake x 7 days 4. Bowel care per rx 5. Scaled wt this admit; subsequent scaled weights with dialysis Addendum: 03/04/22 at [address] Amended: Links added.
[2022-03-04 15:00] VITALS: BP 126/58
[2022-03-04] MEDS: heparin, porcine 5000 units/ml vial SQ SCH (16:00)
[2022-03-04 18:00] VITALS: BP 98/50
--- NOTE | 2022-03-04 18:50 | NUR ---
Problems reprioritized. Patient report given, questions answered & plan of care reviewed with MARKEL Glynn.
[2022-03-04] MEDS: HYDROcodone/acetaminophen 5mg/325mg tablet PO PRN (19:58)
--- NOTE | 2022-03-04 20:00 | NUR ---
Pt unable to tolerate ortho static bp at this time. first session of dialysis in progress
[2022-03-04] MEDS ORDERED: warfarin 1mg tablet PO ONE (21:00)
[2022-03-04 22:00] VITALS: BP 99/50
[2022-03-04] MEDS: atorvastatin 20mg tablet PO SCH (22:11)
[2022-03-04] MEDS: insulin glargine (Lantus) pen - multi-dose SQ SCH (22:25)
[2022-03-05] VITALS (8 sets, daily range): BP systolic 105–142; BP diastolic 27–67
[2022-03-05] MEDS: heparin, porcine 5000 units/ml vial SQ SCH ×3 (00:33→16:00)
[2022-03-05] MEDS: NUT.TX.GLUC.INTOLER,LAC-FR,SOY (GLUCERNA) 237 ML PO SCH ×3 (07:30→18:30)
[2022-03-05] MEDS: docusate sod 100mg capsule PO SCH ×2 (08:00→20:00)
[2022-03-05] MEDS: losartan 50mg tablet PO SCH (08:00)
[2022-03-05] MEDS: hydrALAZINE 25 MG tablet PO SCH ×3 (08:00→22:20)
[2022-03-05] MEDS: amLODIPine 5mg tablet PO SCH (08:00)
[2022-03-05] MEDS: K and/or MAG REPLACEMENT MC SCH ×2 (08:00→20:00)
[2022-03-05] MEDS: cefTRIAXone 1g/NS 100ml IVPB 100 ML IV SCH (09:56)
[2022-03-05] MEDS: duloxetine 30mg CAPSULE.DR PO SCH (09:59)
[2022-03-05] MEDS: multivitamins, therapeutics tablet PO SCH (09:59)
[2022-03-05] MEDS: isosorbide mononitrate 30mg tab.SR.24H PO SCH (09:59)
[2022-03-05] MEDS: amiodarone 200mg tablet PO SCH (09:59)
[2022-03-05] MEDS: insulin Lispro (HumaLOG) vial - multi-dose SQ SCH ×2 (10:03→13:31)
[2022-03-05] MEDS: aspirin 81mg tab.chew PO SCH (10:06)
--- NOTE | 2022-03-05 11:19 | NUR ---
DISCUSSED PATIENTS BP MEDS WITH MD [facility]; HOLDING MEDS
[2022-03-05 11:30] LABS: BASOPHILS % (AUTO) 0.2 % (0-1); EOSINOPHILS % (AUTO) 0.3 % (0-6); HEMATOCRIT 22.9 % (42.0-52.0); HEMOGLOBIN 7.5 g/dl (14.0-17.9); LYMPHOCYTES # (AUTO) 0.8 X10'3 (1.1-4.8); LYMPHOCYTES % (AUTO) 5.8 % (21-51); MEAN CORPUSCULAR HEMOGLOBIN 26.3 PG (27.0-31.0); MEAN CORPUSCULAR HGB CONC 32.7 g/dL (33.0-36.5); MEAN CORPUSCULAR VOLUME 80.6 FL (78-98); MEAN PLATELET VOLUME 8.1 FL (7.4-10.4); MONOCYTES # (AUTO) 0.7 X10'3 (0-0.9); MONOCYTES % (AUTO) 4.6 % (2-12); NEUTROPHILS # (AUTO) 12.5 X10'3 (1.8-7.7); NEUTROPHILS % (AUTO) 89.1 % (42-75); PLATELET COUNT 279 X10'3 (140-440); RED BLOOD COUNT 2.84 X10'6 (4.70-6.10); RED CELL DISTRIBUTION WIDTH 18.4 % (11.5-14.5); WHITE BLOOD COUNT 14.1 X10'3 (4.5-11.0)
[2022-03-05 11:45] LABS: ALANINE AMINOTRANSFERASE 66 U/L (12-78); ALBUMIN 1.2 G/DL (3.4-5.0); ALBUMIN/GLOBULIN RATIO 0.3 (1.1-1.5); ALKALINE PHOSPHATASE 216 IU/L (46-116); ANION GAP 12 (8-16); ASPARTATE AMINO TRANSFERASE 58 U/L (10-37); BILIRUBIN,TOTAL 0.3 MG/DL (0.1-1.0); BLOOD UREA NITROGEN 80 MG/DL (7-18); BUN/CREATININE RATIO 19.7 (5.4-32.0); CALCIUM 7.5 MG/DL (8.5-10.1); CHLORIDE 96 MMOL/L (99-107); CREATININE 4.06 MG/DL (0.60-1.10); GLUCOSE 296 MG/DL (70-104); POTASSIUM 4.2 MMOL/L (3.5-5.1); SODIUM 130 MMOL/L (135-145); TOTAL CARBON DIOXIDE 21.8 MMOL/L (24-32); TOTAL PROTEIN 5.4 G/DL (6.4-8.2); eGFR 14 ML/MIN
[2022-03-05] MEDS ORDERED: normal saline 1000ml 100 ML IV PRN (12:40)
[2022-03-05] MEDS ORDERED: heparin 1,000 units/ml 10ml inj HE ONE ×4 (12:45→16:25)
--- NOTE | 2022-03-05 15:48 | NUR ---
CRITICAL PAGED TO MD [facility], AEROBIC BLOOD CULTURES POSITIVE X2; GRAM + COCCI IN CLUSTERS
[2022-03-05] MEDS ORDERED: vancomycin/NS 1 GM ADD-VANTAGE 250 ML IV ONE (16:50)
--- NOTE | 2022-03-05 20:00 | NUR ---
Orthostatic BP Pt unable to tolerate procedure at this time. Pt receiving dialysis. Pt states he feels weak. Will continue to monitor.
[2022-03-05] MEDS: insulin glargine (Lantus) pen - multi-dose SQ SCH (21:00)
[2022-03-05] MEDS: atorvastatin 20mg tablet PO SCH (21:07)
[2022-03-06] VITALS (14 sets, daily range): BP systolic 101–156; BP diastolic 34–61
[2022-03-06] MEDS: hydrALAZINE 25 MG tablet PO SCH ×4 (02:00→22:41)
--- NOTE | 2022-03-06 04:13 | NUR ---
Elevated Temp: bed bath completed with linen change. CHG bath. [facility] Ice packs applied
[2022-03-06 07:48] LABS: BASOPHILS % (AUTO) 0.1 % (0-1); LYMPHOCYTES % (AUTO) 6.7 % (21-51); MONOCYTES # (AUTO) 1.1 X10'3 (0-0.9); MONOCYTES % (AUTO) 7.7 % (2-12)
[2022-03-06 07:49] LABS: EOSINOPHILS % (AUTO) 0 % (0-6); MEAN CORPUSCULAR HGB CONC 32.6 g/dL (33.0-36.5); MEAN CORPUSCULAR VOLUME 79.8 FL (78-98); MEAN PLATELET VOLUME 8.1 FL (7.4-10.4); NEUTROPHILS # (AUTO) 12.4 X10'3 (1.8-7.7); NEUTROPHILS % (AUTO) 85.5 % (42-75); PLATELET COUNT 276 X10'3 (140-440); RED BLOOD COUNT 2.18 X10'6 (4.70-6.10); RED CELL DISTRIBUTION WIDTH 18.4 % (11.5-14.5); WHITE BLOOD COUNT 14.5 X10'3 (4.5-11.0)
[2022-03-06 07:56] LABS: ALBUMIN 1.1 G/DL (3.4-5.0); ANION GAP 10 (8-16); BLOOD UREA NITROGEN 70 MG/DL (7-18); BUN/CREATININE RATIO 18.6 (5.4-32.0); CHLORIDE 100 MMOL/L (99-107); CREATININE 3.76 MG/DL (0.60-1.10); GLUCOSE 254 MG/DL (70-104); POTASSIUM 4.5 MMOL/L (3.5-5.1); SODIUM 133 MMOL/L (135-145); TOTAL CARBON DIOXIDE 22.8 MMOL/L (24-32); VANCOMYCIN,RANDOM 12.8 UG/ML; eGFR 16 ML/MIN
[2022-03-06] MEDS: losartan 50mg tablet PO SCH (08:00)
[2022-03-06] MEDS: aspirin 81mg tab.chew PO SCH (08:00)
[2022-03-06] MEDS ORDERED: vancomycin/NS 1 GM ADD-VANTAGE 250 ML IV PRN (08:00)
[2022-03-06] MEDS: K and/or MAG REPLACEMENT MC SCH ×2 (08:00→20:00)
[2022-03-06] MEDS: heparin, porcine 5000 units/ml vial SQ SCH ×3 (08:00→16:00)
[2022-03-06] MEDS: docusate sod 100mg capsule PO SCH ×2 (08:00→20:00)
[2022-03-06] MEDS: amLODIPine 5mg tablet PO SCH (08:00)
[2022-03-06 08:03] LABS: HEMATOCRIT 17.4 % (42.0-52.0); HEMOGLOBIN 5.7 g/dl (14.0-17.9)
--- NOTE | 2022-03-06 08:04 | NUR ---
reported critical to primary RN
--- NOTE | 2022-03-06 08:17 | NUR ---
pt had critical hgb of 5.7 and hct of 17.4... notified.. PAGER ID: [phone] MESSAGE: [id number] PLEITEZ: doc, lab called that patient have a critical hgb of 5.7, hgb 17.4.. also (+) blood culture on aerobic bottle taken 03/05/22 on his left arm showing gram (+) cocci in clusters. pls advise
[2022-03-06] MEDS ORDERED: vancomycin/NS 1 GM ADD-VANTAGE 250 ML IV ONE (09:00)
[2022-03-06] MEDS: cefTRIAXone 1g/NS 100ml IVPB 100 ML IV SCH (09:14)
[2022-03-06] MEDS: amiodarone 200mg tablet PO SCH (09:15)
[2022-03-06] MEDS: duloxetine 30mg CAPSULE.DR PO SCH (09:15)
[2022-03-06] MEDS: isosorbide mononitrate 30mg tab.SR.24H PO SCH (09:15)
[2022-03-06] MEDS: multivitamins, therapeutics tablet PO SCH (09:16)
[2022-03-06] MEDS: insulin Lispro (HumaLOG) vial - multi-dose SQ SCH ×3 (09:32→21:13)
[2022-03-06 09:55] LABS: MEAN CORPUSCULAR HEMOGLOBIN 26.1 PG (27.0-31.0); MEAN CORPUSCULAR HGB CONC 32.4 g/dL (33.0-36.5); MEAN CORPUSCULAR VOLUME 80.7 FL (78-98); MEAN PLATELET VOLUME 8.1 FL (7.4-10.4); PLATELET COUNT 280 X10'3 (140-440); RED CELL DISTRIBUTION WIDTH 18.1 % (11.5-14.5); WHITE BLOOD COUNT 15.5 X10'3 (4.5-11.0)
[2022-03-06] MEDS ORDERED: pantoprazole 40mg Tablet.DR PO SCH (10:00)
[2022-03-06 10:02] LABS: HEMATOCRIT 16.9 % (42.0-52.0); HEMOGLOBIN 5.5 g/dl (14.0-17.9)
--- NOTE | 2022-03-06 10:11 | NUR ---
stat hgb is at critical 5.5, hct 19.6.. notified PAGER ID: [phone] MESSAGE: [id number] Bates: doc, stat hgb is 5.5, hct 16.9..and he just had an accident on the bed and it stained in his bedsheet with blood. colored black. placed an order for transfusion of 2 units already. will continue to monitor pt.
[2022-03-06] MEDS ORDERED: phytonadione inj. 5 MG in normal saline 100ml IV soln 100 ML IV ONE (14:40)
[2022-03-06] MEDS: NUT.TX.GLUC.INTOLER,LAC-FR,SOY (GLUCERNA) 237 ML PO SCH (17:50)
--- NOTE | 2022-03-06 18:55 | NUR ---
Problems reprioritized. Patient report given, questions answered & plan of care reviewed with Gretta JEAN BAPTISTE.
--- NOTE | 2022-03-06 20:00 | NUR ---
ortho static vital deferred d/t generalized weakness. fall risk.
[2022-03-06] MEDS: atorvastatin 20mg tablet PO SCH (20:48)
[2022-03-06] MEDS: insulin glargine (Lantus) pen - multi-dose SQ SCH (21:12)
--- NOTE | 2022-03-06 23:37 | NUR ---
2ND PRBC INFUSED. NO TRANSFUSION REACTIONS NOTED.
[2022-03-07] VITALS (10 sets, daily range): BP systolic 99–159; BP diastolic 36–56
[2022-03-07] MEDS: pantoprazole 40MG/NS 100ML BAG 100 ML IV SCH ×3 (00:12→20:21)
[2022-03-07] MEDS: hydrALAZINE 25 MG tablet PO SCH ×4 (02:06→20:22)
[2022-03-07] MEDS ORDERED: VANCOMYCIN LEVEL IV SCH (03:00)
--- NOTE | 2022-03-07 04:00 | NUR ---
pt is a very hard stick. Unable to get CBC s/p 2nd blood transfusion and Vanco trough this am
[2022-03-07] MEDS: NUT.TX.GLUC.INTOLER,LAC-FR,SOY (GLUCERNA) 237 ML PO SCH ×2 (07:30→17:30)
[2022-03-07] MEDS: docusate sod 100mg capsule PO SCH ×2 (08:00→20:00)
[2022-03-07] MEDS: K and/or MAG REPLACEMENT MC SCH ×2 (08:00→18:53)
[2022-03-07] MEDS ORDERED: heparin 1,000 units/ml 10ml inj HE ONE ×2 (08:00→09:20)
[2022-03-07] MEDS ORDERED: normal saline 1000ml 100 ML IV PRN ×2 (08:00→08:40)
[2022-03-07] MEDS: amLODIPine 5mg tablet PO SCH (08:00)
[2022-03-07] MEDS: heparin, porcine 5000 units/ml vial SQ SCH ×3 (08:00→16:00)
[2022-03-07] MEDS: losartan 50mg tablet PO SCH (08:00)
[2022-03-07] MEDS: ondansetron 4mg rapidly disintigrating tab PO PRN (08:07)
[2022-03-07] MEDS: isosorbide mononitrate 30mg tab.SR.24H PO SCH (08:07)
[2022-03-07] MEDS: amiodarone 200mg tablet PO SCH (08:08)
[2022-03-07] MEDS: duloxetine 30mg CAPSULE.DR PO SCH (08:08)
[2022-03-07] MEDS: multivitamins, therapeutics tablet PO SCH (08:08)
[2022-03-07 08:26] LABS: BASOPHILS # (AUTO) 0.1 X10'3 (0-0.2); BASOPHILS % (AUTO) 0.6 % (0-1); EOSINOPHILS # (AUTO) 0.2 X10'3 (0-0.9); EOSINOPHILS % (AUTO) 0.9 % (0-6); HEMOGLOBIN 7.2 g/dl (14.0-17.9); LYMPHOCYTES # (AUTO) 1.4 X10'3 (1.1-4.8); LYMPHOCYTES % (AUTO) 7.8 % (21-51); MEAN CORPUSCULAR HEMOGLOBIN 27.2 PG (27.0-31.0); MEAN CORPUSCULAR HGB CONC 33.2 g/dL (33.0-36.5); MEAN CORPUSCULAR VOLUME 81.8 FL (78-98); MEAN PLATELET VOLUME 8.2 FL (7.4-10.4); MONOCYTES # (AUTO) 0.6 X10'3 (0-0.9); MONOCYTES % (AUTO) 3.6 % (2-12); NEUTROPHILS # (AUTO) 15.2 X10'3 (1.8-7.7); NEUTROPHILS % (AUTO) 87.1 % (42-75); PLATELET COUNT 312 X10'3 (140-440); RED BLOOD COUNT 2.65 X10'6 (4.70-6.10); RED CELL DISTRIBUTION WIDTH 17.4 % (11.5-14.5); WHITE BLOOD COUNT 17.5 X10'3 (4.5-11.0)
[2022-03-07 08:39] LABS: ALBUMIN 1.2 G/DL (3.4-5.0); ANION GAP 10 (8-16); BLOOD UREA NITROGEN 95 MG/DL (7-18); BUN/CREATININE RATIO 21.3 (5.4-32.0); CALCIUM 7.1 MG/DL (8.5-10.1); CHLORIDE 97 MMOL/L (99-107); CREATININE 4.45 MG/DL (0.60-1.10); GLUCOSE 206 MG/DL (70-104); POTASSIUM 4.2 MMOL/L (3.5-5.1); SODIUM 128 MMOL/L (135-145); TOTAL CARBON DIOXIDE 20.9 MMOL/L (24-32); VANCOMYCIN,RANDOM 20.4 UG/ML; eGFR 13 ML/MIN
[2022-03-07] MEDS ORDERED: EPOETIN ALFA-EPBX 20,000 UNIT/ML 1 ML MDV IV ONE (08:40)
[2022-03-07 08:48] LABS: HEMATOCRIT 21.7 % (42.0-52.0)
[2022-03-07] MEDS: insulin Lispro (HumaLOG) vial - multi-dose SQ SCH ×2 (09:27→22:04)
--- NOTE | 2022-03-07 10:14 | NUR ---
Reassessment: Pt has been changed to full liquid diet 03/06 in regards to some melena per documentation. Pt has had mostly 0-25% intake of meals and ONS for the last 11 days though RN states pt did have 100% of full liquid breakfast today. Pt has also started on HD. D/w RN and pageadelfo LANGE regarding pt's poor PO intake and possibility for TF if within POC. Pt has developed sepsis per MD note. LBM 03/06. Will continue to monitor. Recommendations: 1. Resume regular diet when medically appropriate 2. Glucerna BIDBD; if PO intake does not improve consider changing to Ensure Enlive versus Nepro and monitor need to increase frequency; discontinue ONS if acceptance does not improve 3. Consider NGT for supplemental versus full nutrition support given poor PO intake x 11 days 4. Bowel care per rx 5. Scaled wt this admit; subsequent scaled weights with dialysis Addendum: 03/07/22 at [address] Amended: Links added.
[2022-03-07 10:50] LABS: BASOPHILS % (AUTO) 0.1 % (0-1); EOSINOPHILS # (AUTO) 0.2 X10'3 (0-0.9); EOSINOPHILS % (AUTO) 1.2 % (0-6); LYMPHOCYTES # (AUTO) 0.8 X10'3 (1.1-4.8); LYMPHOCYTES % (AUTO) 5.3 % (21-51); MEAN CORPUSCULAR HEMOGLOBIN 27.4 PG (27.0-31.0); MEAN CORPUSCULAR HGB CONC 33.5 g/dL (33.0-36.5); MEAN CORPUSCULAR VOLUME 81.8 FL (78-98); MEAN PLATELET VOLUME 8.2 FL (7.4-10.4); MONOCYTES # (AUTO) 0.4 X10'3 (0-0.9); MONOCYTES % (AUTO) 2.5 % (2-12); NEUTROPHILS # (AUTO) 13.2 X10'3 (1.8-7.7); NEUTROPHILS % (AUTO) 90.9 % (42-75); PLATELET COUNT 284 X10'3 (140-440); RED BLOOD COUNT 2.59 X10'6 (4.70-6.10); RED CELL DISTRIBUTION WIDTH 17.2 % (11.5-14.5); WHITE BLOOD COUNT 14.5 X10'3 (4.5-11.0)
[2022-03-07 10:54] LABS: HEMATOCRIT 21.2 % (42.0-52.0); HEMOGLOBIN 7.1 g/dl (14.0-17.9)
[2022-03-07 14:35] LABS: BASOPHILS # (AUTO) 0.1 X10'3 (0-0.2); BASOPHILS % (AUTO) 0.9 % (0-1); EOSINOPHILS # (AUTO) 0.1 X10'3 (0-0.9); HEMATOCRIT 28.9 % (42.0-52.0); HEMOGLOBIN 9.8 g/dl (14.0-17.9); LYMPHOCYTES % (AUTO) 6.7 % (21-51); MEAN CORPUSCULAR HEMOGLOBIN 27.8 PG (27.0-31.0); MEAN CORPUSCULAR VOLUME 81.6 FL (78-98); MEAN PLATELET VOLUME 7.8 FL (7.4-10.4); MONOCYTES # (AUTO) 0.5 X10'3 (0-0.9); MONOCYTES % (AUTO) 3.2 % (2-12); NEUTROPHILS # (AUTO) 12.8 X10'3 (1.8-7.7); NEUTROPHILS % (AUTO) 88.2 % (42-75); PLATELET COUNT 285 X10'3 (140-440); RED BLOOD COUNT 3.54 X10'6 (4.70-6.10); RED CELL DISTRIBUTION WIDTH 16.9 % (11.5-14.5); WHITE BLOOD COUNT 14.5 X10'3 (4.5-11.0)
[2022-03-07] MEDS: ceFAZolin/D5W- 1GM premix 50 ML IV SCH (15:32)
--- NOTE | 2022-03-07 18:50 | NUR ---
Problems reprioritized. Patient report given, questions answered & plan of care reviewed with Tashia JEAN BAPTISTE.
[2022-03-07] MEDS: atorvastatin 20mg tablet PO SCH (20:21)
[2022-03-07] MEDS: acetaminophen 325mg tablet PO PRN (20:27)
[2022-03-07] MEDS: insulin glargine (Lantus) pen - multi-dose SQ SCH (22:02)
[2022-03-07 23:33] LABS: BASOPHILS % (AUTO) 0.3 % (0-1); EOSINOPHILS # (AUTO) 0.1 X10'3 (0-0.9); EOSINOPHILS % (AUTO) 0.9 % (0-6); HEMATOCRIT 22.2 % (42.0-52.0); HEMOGLOBIN 7.7 g/dl (14.0-17.9); LYMPHOCYTES % (AUTO) 8.8 % (21-51); MEAN CORPUSCULAR HEMOGLOBIN 28.3 PG (27.0-31.0); MEAN CORPUSCULAR HGB CONC 34.6 g/dL (33.0-36.5); MEAN CORPUSCULAR VOLUME 81.9 FL (78-98); MEAN PLATELET VOLUME 8.1 FL (7.4-10.4); MONOCYTES # (AUTO) 0.5 X10'3 (0-0.9); MONOCYTES % (AUTO) 4.6 % (2-12); NEUTROPHILS # (AUTO) 9.5 X10'3 (1.8-7.7); NEUTROPHILS % (AUTO) 85.4 % (42-75); PLATELET COUNT 253 X10'3 (140-440); RED BLOOD COUNT 2.71 X10'6 (4.70-6.10); RED CELL DISTRIBUTION WIDTH 16.3 % (11.5-14.5); WHITE BLOOD COUNT 11.1 X10'3 (4.5-11.0)
[2022-03-08] VITALS (9 sets, daily range): BP systolic 100–142; BP diastolic 43–75
[2022-03-08] MEDS: heparin, porcine 5000 units/ml vial SQ SCH ×3 (00:01→16:29)
--- NOTE | 2022-03-08 01:00 | NUR ---
Received report that patient has + blood cultures @IV start site. Gram + cocci and clusters in aerobic container. 34.24 hours to date. Attempted to reach Dr. Hawk, no answer. Will attempt again.
[2022-03-08] MEDS: hydrALAZINE 25 MG tablet PO SCH ×4 (02:00→20:26)
[2022-03-08 04:53] LABS: BASOPHILS % (AUTO) 0.1 % (0-1); EOSINOPHILS # (AUTO) 0.1 X10'3 (0-0.9); EOSINOPHILS % (AUTO) 1.3 % (0-6); HEMATOCRIT 22.3 % (42.0-52.0); HEMOGLOBIN 7.6 g/dl (14.0-17.9); LYMPHOCYTES # (AUTO) 1.2 X10'3 (1.1-4.8); LYMPHOCYTES % (AUTO) 10.6 % (21-51); MEAN CORPUSCULAR HGB CONC 33.9 g/dL (33.0-36.5); MEAN CORPUSCULAR VOLUME 82.5 FL (78-98); MEAN PLATELET VOLUME 7.9 FL (7.4-10.4); MONOCYTES # (AUTO) 0.6 X10'3 (0-0.9); MONOCYTES % (AUTO) 5.7 % (2-12); NEUTROPHILS # (AUTO) 9.1 X10'3 (1.8-7.7); NEUTROPHILS % (AUTO) 82.3 % (42-75); PLATELET COUNT 267 X10'3 (140-440); RED BLOOD COUNT 2.71 X10'6 (4.70-6.10); RED CELL DISTRIBUTION WIDTH 16.2 % (11.5-14.5)
[2022-03-08 05:01] LABS: ANION GAP 8 (8-16); BLOOD UREA NITROGEN 46 MG/DL (7-18); BUN/CREATININE RATIO 15.1 (5.4-32.0); CALCIUM 7.1 MG/DL (8.5-10.1); CHLORIDE 98 MMOL/L (99-107); CREATININE 3.05 MG/DL (0.60-1.10); GLUCOSE 224 MG/DL (70-104); POTASSIUM 3.9 MMOL/L (3.5-5.1); SODIUM 133 MMOL/L (135-145); TOTAL CARBON DIOXIDE 27.5 MMOL/L (24-32); eGFR 20 ML/MIN
[2022-03-08] MEDS: K and/or MAG REPLACEMENT MC SCH ×2 (07:13→20:00)
[2022-03-08] MEDS: docusate sod 100mg capsule PO SCH ×2 (07:14→20:00)
[2022-03-08] MEDS: NUT.TX.GLUC.INTOLER,LAC-FR,SOY (GLUCERNA) 237 ML PO SCH ×2 (07:30→17:30)
[2022-03-08] MEDS: isosorbide mononitrate 30mg tab.SR.24H PO SCH (08:00)
[2022-03-08] MEDS: losartan 50mg tablet PO SCH (08:00)
[2022-03-08] MEDS: amLODIPine 5mg tablet PO SCH (08:00)
[2022-03-08] MEDS ORDERED: vancomycin/NS 1 GM ADD-VANTAGE 250 ML IV SCH (08:00)
[2022-03-08] MEDS: multivitamins, therapeutics tablet PO SCH (08:26)
[2022-03-08] MEDS: amiodarone 200mg tablet PO SCH (08:26)
[2022-03-08] MEDS: duloxetine 30mg CAPSULE.DR PO SCH (08:27)
[2022-03-08] MEDS: pantoprazole 40MG/NS 100ML BAG 100 ML IV SCH ×2 (08:38→20:38)
[2022-03-08] MEDS: insulin Lispro (HumaLOG) vial - multi-dose SQ SCH ×2 (08:41→13:37)
[2022-03-08] MEDS: ceFAZolin/D5W- 1GM premix 50 ML IV SCH (09:24)
[2022-03-08] MEDS ORDERED: pantoprazole 40mg Tablet.DR PO SCH (12:00)
[2022-03-08 12:30] LABS: HBSAG SCREEN Negative (Negative); HEP B CORE AB, TOT Negative (Negative)
[2022-03-08 12:43] LABS: BASOPHILS % (AUTO) 0.3 % (0-1); EOSINOPHILS # (AUTO) 0.1 X10'3 (0-0.9); EOSINOPHILS % (AUTO) 0.7 % (0-6); HEMATOCRIT 25.8 % (42.0-52.0); HEMOGLOBIN 8.5 g/dl (14.0-17.9); LYMPHOCYTES # (AUTO) 0.7 X10'3 (1.1-4.8); LYMPHOCYTES % (AUTO) 4.9 % (21-51); MEAN CORPUSCULAR HEMOGLOBIN 27.4 PG (27.0-31.0); MEAN CORPUSCULAR HGB CONC 33.1 g/dL (33.0-36.5); MEAN CORPUSCULAR VOLUME 82.7 FL (78-98); MEAN PLATELET VOLUME 8.1 FL (7.4-10.4); MONOCYTES # (AUTO) 0.5 X10'3 (0-0.9); MONOCYTES % (AUTO) 3.6 % (2-12); NEUTROPHILS # (AUTO) 13.1 X10'3 (1.8-7.7); NEUTROPHILS % (AUTO) 90.5 % (42-75); PLATELET COUNT 335 X10'3 (140-440); RED BLOOD COUNT 3.12 X10'6 (4.70-6.10); RED CELL DISTRIBUTION WIDTH 16.7 % (11.5-14.5); WHITE BLOOD COUNT 14.5 X10'3 (4.5-11.0)
[2022-03-08] MEDS: ondansetron 4mg rapidly disintigrating tab PO PRN (12:49)
--- NOTE | 2022-03-08 12:49 | NUR ---
Pt feeling nauseous. Dry hive with no vomit, 4MG Zofran admin as per JAN.
[2022-03-08] MEDS: atorvastatin 20mg tablet PO SCH (20:38)
[2022-03-08] MEDS: insulin glargine (Lantus) pen - multi-dose SQ SCH (21:30)
[2022-03-09] VITALS (7 sets, daily range): BP systolic 97–138; BP diastolic 47–66
[2022-03-09 01:08] LABS: HEMATOCRIT 22.5 % (42.0-52.0); HEMOGLOBIN 7.5 g/dl (14.0-17.9); MEAN CORPUSCULAR HGB CONC 33.4 g/dL (33.0-36.5); MEAN CORPUSCULAR VOLUME 83.9 FL (78-98); MEAN PLATELET VOLUME 7.7 FL (7.4-10.4); PLATELET COUNT 290 X10'3 (140-440); RED BLOOD COUNT 2.68 X10'6 (4.70-6.10); RED CELL DISTRIBUTION WIDTH 17.1 % (11.5-14.5)
[2022-03-09] MEDS: hydrALAZINE 25 MG tablet PO SCH ×4 (02:00→20:00)
[2022-03-09] MEDS: NUT.TX.GLUC.INTOLER,LAC-FR,SOY (GLUCERNA) 237 ML PO SCH ×3 (07:30→20:34)
[2022-03-09] MEDS ORDERED: albumin (human) 25% 100ml IV 100 ML IV PRN (08:00)
[2022-03-09] MEDS: docusate sod 100mg capsule PO SCH ×2 (08:00→20:00)
[2022-03-09] MEDS ORDERED: EPOETIN ALFA-EPBX 20,000 UNIT/ML 1 ML MDV IV ONE (08:00)
[2022-03-09] MEDS ORDERED: heparin 1,000 units/ml 10ml inj HE ONE ×2 (08:00→10:20)
[2022-03-09] MEDS: K and/or MAG REPLACEMENT MC SCH ×2 (08:00→20:00)
[2022-03-09] MEDS ORDERED: normal saline 1000ml 100 ML IV PRN (08:00)
--- NOTE | 2022-03-09 08:00 | NUR ---
Unable to stand patient for ortho's due to weakness. [facility]
[2022-03-09] MEDS: duloxetine 30mg CAPSULE.DR PO SCH (08:16)
[2022-03-09] MEDS: heparin, porcine 5000 units/ml vial SQ SCH ×3 (08:17→16:42)
[2022-03-09] MEDS: amLODIPine 5mg tablet PO SCH (08:17)
[2022-03-09] MEDS: losartan 50mg tablet PO SCH (08:18)
[2022-03-09] MEDS: amiodarone 200mg tablet PO SCH (08:18)
[2022-03-09] MEDS: multivitamins, therapeutics tablet PO SCH (08:18)
[2022-03-09] MEDS: ceFAZolin/D5W- 1GM premix 50 ML IV SCH (08:19)
[2022-03-09] MEDS: isosorbide mononitrate 30mg tab.SR.24H PO SCH (08:19)
[2022-03-09] MEDS: pantoprazole 40MG/NS 100ML BAG 100 ML IV SCH ×2 (08:21→20:41)
[2022-03-09] MEDS: insulin Lispro (HumaLOG) vial - multi-dose SQ SCH ×2 (09:30→21:55)
[2022-03-09 10:19] LABS: BASOPHILS % (AUTO) 0.3 % (0-1); EOSINOPHILS # (AUTO) 0.1 X10'3 (0-0.9); EOSINOPHILS % (AUTO) 0.5 % (0-6); HEMATOCRIT 22.9 % (42.0-52.0); HEMOGLOBIN 7.6 g/dl (14.0-17.9); LYMPHOCYTES # (AUTO) 0.9 X10'3 (1.1-4.8); LYMPHOCYTES % (AUTO) 6.1 % (21-51); MEAN CORPUSCULAR HGB CONC 33.2 g/dL (33.0-36.5); MEAN CORPUSCULAR VOLUME 84.3 FL (78-98); MEAN PLATELET VOLUME 7.9 FL (7.4-10.4); MONOCYTES # (AUTO) 0.6 X10'3 (0-0.9); MONOCYTES % (AUTO) 3.8 % (2-12); NEUTROPHILS % (AUTO) 89.3 % (42-75); PLATELET COUNT 305 X10'3 (140-440); RED BLOOD COUNT 2.72 X10'6 (4.70-6.10); RED CELL DISTRIBUTION WIDTH 17.1 % (11.5-14.5); WHITE BLOOD COUNT 14.6 X10'3 (4.5-11.0)
[2022-03-09 10:24] LABS: ANION GAP 12 (8-16); BLOOD UREA NITROGEN 62 MG/DL (7-18); BUN/CREATININE RATIO 15.9 (5.4-32.0); CHLORIDE 96 MMOL/L (99-107); GLUCOSE 246 MG/DL (70-104); SODIUM 130 MMOL/L (135-145); TOTAL CARBON DIOXIDE 22.2 MMOL/L (24-32); eGFR 15 ML/MIN
--- NOTE | 2022-03-09 13:02 | NUR ---
blood sugar Not covering blood sugar due to pt. not eating while on dialysis. [facility]
[2022-03-09 14:16] LABS: ATYPICAL PANCA <1:20 titer (Neg:<1:20); CYTOPLASMIC (C-ANCA) <1:20 titer (Neg:<1:20); PERINUCLEAR (P-ANCA) <1:20 titer (Neg:<1:20)
--- NOTE | 2022-03-09 15:37 | NUR ---
Page to PAGER ID: [phone] MESSAGE: Dr. Wilson do you want patient in room 3015A Radha Stefan dialysis line pulled? I tried calling [facility]io to see if they had to pull it. I wasn't able to find the protocol for removal here. Thanks, Lyn LUNSFORD
--- NOTE | 2022-03-09 15:40 | NUR ---
Dialysis line pulled per Dr. Wilson and Russ's order due to concern for staph growing. 4X4 and tegaderm placed; hemostasis reached; Lyn U
[2022-03-09 18:03] LABS: HEMOGLOBIN 7.2 g/dl (14.0-17.9); MEAN CORPUSCULAR HEMOGLOBIN 28.2 PG (27.0-31.0); MEAN CORPUSCULAR HGB CONC 33.4 g/dL (33.0-36.5); MEAN CORPUSCULAR VOLUME 84.6 FL (78-98); MEAN PLATELET VOLUME 7.7 FL (7.4-10.4); PLATELET COUNT 274 X10'3 (140-440); RED BLOOD COUNT 2.53 X10'6 (4.70-6.10); RED CELL DISTRIBUTION WIDTH 17.5 % (11.5-14.5); WHITE BLOOD COUNT 11.4 X10'3 (4.5-11.0)
[2022-03-09 18:09] LABS: HEMATOCRIT 21.4 % (42.0-52.0)
--- NOTE | 2022-03-09 18:12 | NUR ---
Critical value PAGER ID: [phone] MESSAGE: Dr. Wilson pt in room 3015-A GarciaStefan had a critical hematocrit 21.4 and his hemoglobin was 7.2. Thanks Lyn LUNSFORD
--- NOTE | 2022-03-09 18:41 | NUR ---
Problems reprioritized. Patient report given, questions answered & plan of care reviewed with Tomi JEAN BAPTISTE.
[2022-03-09] MEDS: atorvastatin 20mg tablet PO SCH (20:41)
[2022-03-09] MEDS: insulin glargine (Lantus) pen - multi-dose SQ SCH (21:57)
[2022-03-10] VITALS (9 sets, daily range): BP systolic 99–132; BP diastolic 43–67
[2022-03-10] MEDS: heparin, porcine 5000 units/ml vial SQ SCH ×4 (00:38→23:46)
[2022-03-10] MEDS: hydrALAZINE 25 MG tablet PO SCH ×4 (02:00→19:14)
[2022-03-10 02:37] LABS: BASOPHILS % (AUTO) 0.4 % (0-1); EOSINOPHILS # (AUTO) 0.1 X10'3 (0-0.9); EOSINOPHILS % (AUTO) 0.7 % (0-6); HEMOGLOBIN 7.1 g/dl (14.0-17.9); LYMPHOCYTES # (AUTO) 0.7 X10'3 (1.1-4.8); LYMPHOCYTES % (AUTO) 7.6 % (21-51); MEAN CORPUSCULAR HEMOGLOBIN 27.6 PG (27.0-31.0); MEAN CORPUSCULAR HGB CONC 32.8 g/dL (33.0-36.5); MEAN CORPUSCULAR VOLUME 84.2 FL (78-98); MEAN PLATELET VOLUME 8.1 FL (7.4-10.4); MONOCYTES # (AUTO) 0.4 X10'3 (0-0.9); MONOCYTES % (AUTO) 4.6 % (2-12); NEUTROPHILS # (AUTO) 8.2 X10'3 (1.8-7.7); NEUTROPHILS % (AUTO) 86.7 % (42-75); PLATELET COUNT 298 X10'3 (140-440); RED BLOOD COUNT 2.59 X10'6 (4.70-6.10); RED CELL DISTRIBUTION WIDTH 17.3 % (11.5-14.5); WHITE BLOOD COUNT 9.4 X10'3 (4.5-11.0)
[2022-03-10 02:49] LABS: HEMATOCRIT 21.8 % (42.0-52.0)
--- NOTE | 2022-03-10 06:09 | NUR ---
Problems reprioritized. Patient report given, questions answered & plan of care reviewed with Giselle. Addendum: 03/10/22 at 0609 by Kwesi Witt RN Amended: Links added.
[2022-03-10 06:27] LABS: ALBUMIN 0.9 G/DL (3.4-5.0); ANION GAP 9 (8-16); BLOOD UREA NITROGEN 43 MG/DL (7-18); BUN/CREATININE RATIO 13.2 (5.4-32.0); CALCIUM 6.8 MG/DL (8.5-10.1); CHLORIDE 100 MMOL/L (99-107); CREATININE 3.26 MG/DL (0.60-1.10); GLUCOSE 259 MG/DL (70-104); SODIUM 134 MMOL/L (135-145); TOTAL CARBON DIOXIDE 24.7 MMOL/L (24-32); eGFR 19 ML/MIN
[2022-03-10] MEDS: K and/or MAG REPLACEMENT MC SCH ×2 (07:07→19:13)
[2022-03-10] MEDS: pantoprazole 40MG/NS 100ML BAG 100 ML IV SCH ×2 (07:50→20:39)
[2022-03-10] MEDS: ceFAZolin/D5W- 1GM premix 50 ML IV SCH (07:54)
[2022-03-10] MEDS: isosorbide mononitrate 30mg tab.SR.24H PO SCH (07:56)
[2022-03-10] MEDS: amiodarone 200mg tablet PO SCH (07:57)
[2022-03-10] MEDS: docusate sod 100mg capsule PO SCH ×2 (07:57→19:15)
[2022-03-10] MEDS: multivitamins, therapeutics tablet PO SCH (07:57)
[2022-03-10] MEDS: losartan 50mg tablet PO SCH (07:57)
[2022-03-10] MEDS: duloxetine 30mg CAPSULE.DR PO SCH (07:57)
[2022-03-10] MEDS: amLODIPine 5mg tablet PO SCH (07:58)
--- NOTE | 2022-03-10 11:34 | NUR ---
Reassessment: Pt continues on full liquid diet, documented with 75-100% PO intake of three meals since last RD assessment 03/07 however is mostly with 0-25% PO intake not meeting estimated nutrient needs. Despite a few meals pt has overall been eating poorly since 02/25. Pt continues receiving Glucerna BID though has refused 11 ONS with average 55% PO intake of five ONS. Overall pt not meeting estimated nutrient needs. D/w bedside RN and rn charge recommendation for diet advancement to regular as well as NGT placement for TF with physician approval in view of prolonged poor PO intake. Also d/w bedside RN recommendation to discontinue ONS if pt continues to refuse. Given pt now day 14 with insufficient PO intake and severe muscle weakness pt meets criteria for severe malnutrition. Per EMR pt had TDC removed and is pending placement of a new TDC and dialysis will resume 03/12. LBM 03/09. Will continue to follow closely. Recommendations: 1. Advance to regular diet when medically appropriate 2. Glucerna BIDBD; discontinue ONS if acceptance does not improve; If pt accepting of ONS consider changing to Ensure Enlive versus Nepro TID 3. NGT for supplemental versus full nutrition support given poor PO intake x 14 days, d/w RN 4. Bowel care per rx 5. Scaled wt this admit; subsequent scaled weights with dialysis Addendum: 03/10/22 at [address] Amended: Links added.
[2022-03-10] MEDS: insulin Lispro (HumaLOG) vial - multi-dose SQ SCH ×3 (12:13→21:44)
--- NOTE | 2022-03-10 13:18 | NUR ---
Page Dr Wilson PAGER ID: [phone] MESSAGE: [id number] Stefan Garcia has significant swelling in right arm/hand. Had to remove arm bands. Worse than yesterday. Pt says it is impairing his mobility. Vijaya - PCU [id number]
--- NOTE | 2022-03-10 14:00 | NUR ---
Pt hydralazine held due to BP of 98/54
[2022-03-10 14:21] LABS: HEMATOCRIT 22.7 % (42.0-52.0); HEMOGLOBIN 7.2 g/dl (14.0-17.9); MEAN CORPUSCULAR HEMOGLOBIN 27.2 PG (27.0-31.0); MEAN CORPUSCULAR HGB CONC 31.8 g/dL (33.0-36.5); MEAN CORPUSCULAR VOLUME 85.4 FL (78-98); PLATELET COUNT 327 X10'3 (140-440); RED BLOOD COUNT 2.66 X10'6 (4.70-6.10); RED CELL DISTRIBUTION WIDTH 17.8 % (11.5-14.5); WHITE BLOOD COUNT 13.4 X10'3 (4.5-11.0)
--- NOTE | 2022-03-10 15:25 | NUR ---
Dr Wilson Paged PAGER ID: [phone] MESSAGE: Dr Wilson - 3015A - Stefan Garcia - HGB 7.2 HCT 22.7 - Do you want a unit of PRBC? Vijaya PCU 0314
--- NOTE | 2022-03-10 15:54 | NUR ---
So far no reply from Dr Wilson on last page.
[2022-03-10] MEDS: NUT.TX.GLUC.INTOLER,LAC-FR,SOY (GLUCERNA) 237 ML PO SCH (17:30)
--- NOTE | 2022-03-10 18:21 | NUR ---
Problems reprioritized. Patient report given, questions answered & plan of care reviewed with Braden JEAN BAPTISTE.
[2022-03-10] MEDS: atorvastatin 20mg tablet PO SCH (20:54)
[2022-03-10] MEDS: HYDROcodone/acetaminophen 5mg/325mg tablet PO PRN (20:54)
[2022-03-10] MEDS: insulin glargine (Lantus) pen - multi-dose SQ SCH (21:43)
[2022-03-10] MEDS: ondansetron 4mg rapidly disintigrating tab PO PRN (23:46)
[2022-03-11] VITALS (10 sets, daily range): BP systolic 99–125; BP diastolic 41–60
[2022-03-11] MEDS: clindamycin 600mg/D5W 50ml 50 ML IV SCH
[2022-03-11] MEDS: hydrALAZINE 25 MG tablet PO SCH ×4 (02:09→23:22)
[2022-03-11] MEDS: NUT.TX.GLUC.INTOLER,LAC-FR,SOY (GLUCERNA) 237 ML PO SCH ×2 (07:30→17:30)
[2022-03-11 07:45] LABS: BASOPHILS # (AUTO) 0.1 X10'3 (0-0.2); BASOPHILS % (AUTO) 0.5 % (0-1); EOSINOPHILS # (AUTO) 0.2 X10'3 (0-0.9); EOSINOPHILS % (AUTO) 1.2 % (0-6); HEMOGLOBIN 8.2 g/dl (14.0-17.9); LYMPHOCYTES # (AUTO) 1.3 X10'3 (1.1-4.8); LYMPHOCYTES % (AUTO) 9.9 % (21-51); MEAN CORPUSCULAR HEMOGLOBIN 28.1 PG (27.0-31.0); MEAN CORPUSCULAR HGB CONC 32.9 g/dL (33.0-36.5); MEAN CORPUSCULAR VOLUME 85.3 FL (78-98); MEAN PLATELET VOLUME 8.1 FL (7.4-10.4); MONOCYTES # (AUTO) 0.5 X10'3 (0-0.9); MONOCYTES % (AUTO) 4.2 % (2-12); NEUTROPHILS # (AUTO) 10.8 X10'3 (1.8-7.7); NEUTROPHILS % (AUTO) 84.2 % (42-75); PLATELET COUNT 331 X10'3 (140-440); RED BLOOD COUNT 2.93 X10'6 (4.70-6.10); RED CELL DISTRIBUTION WIDTH 18.3 % (11.5-14.5); WHITE BLOOD COUNT 12.9 X10'3 (4.5-11.0)
[2022-03-11] MEDS: acetaminophen 325mg tablet PO PRN (07:47)
[2022-03-11] MEDS: multivitamins, therapeutics tablet PO SCH (07:47)
[2022-03-11] MEDS: pantoprazole 40MG/NS 100ML BAG 100 ML IV SCH ×2 (07:48)
[2022-03-11] MEDS: isosorbide mononitrate 30mg tab.SR.24H PO SCH (07:49)
[2022-03-11] MEDS: docusate sod 100mg capsule PO SCH ×2 (07:52→20:00)
[2022-03-11] MEDS: duloxetine 30mg CAPSULE.DR PO SCH (07:52)
[2022-03-11] MEDS: amiodarone 200mg tablet PO SCH (07:53)
[2022-03-11] MEDS: amLODIPine 5mg tablet PO SCH (07:53)
[2022-03-11] MEDS: losartan 50mg tablet PO SCH (07:53)
[2022-03-11] MEDS: ceFAZolin/D5W- 1GM premix 50 ML IV SCH (07:56)
[2022-03-11 07:59] LABS: ALBUMIN 1.1 G/DL (3.4-5.0); ANION GAP 9 (8-16); BLOOD UREA NITROGEN 50 MG/DL (7-18); BUN/CREATININE RATIO 12.7 (5.4-32.0); CALCIUM 7.2 MG/DL (8.5-10.1); CHLORIDE 100 MMOL/L (99-107); CREATININE 3.93 MG/DL (0.60-1.10); GLUCOSE 155 MG/DL (70-104); POTASSIUM 3.9 MMOL/L (3.5-5.1); SODIUM 133 MMOL/L (135-145); TOTAL CARBON DIOXIDE 24.5 MMOL/L (24-32); eGFR 15 ML/MIN
[2022-03-11] MEDS: K and/or MAG REPLACEMENT MC SCH ×2 (08:00→20:00)
[2022-03-11] MEDS: heparin, porcine 5000 units/ml vial SQ SCH ×2 (08:00→16:00)
[2022-03-11] MEDS ORDERED: normal saline 1000ml 100 ML IV PRN (08:00)
[2022-03-11] MEDS ORDERED: heparin 1,000 units/ml 10ml inj HE ONE ×2 (08:00→08:40)
[2022-03-11] MEDS ORDERED: EPOETIN ALFA-EPBX 20,000 UNIT/ML 1 ML MDV IV ONE (08:00)
[2022-03-11] MEDS: insulin Lispro (HumaLOG) vial - multi-dose SQ SCH (13:56)
--- NOTE | 2022-03-11 15:55 | NUR ---
Paged Dr Wilson PAGER ID: [phone] MESSAGE: [id number]. Stefan Garcia. Pts eyes are itching & hurting. No redness noted. eye drops? Jesusita Corbin [phone]
--- NOTE | 2022-03-11 16:00 | NUR ---
5000 units hep sq scheduled for 1600 - held d/t needing blood transfusion.
[2022-03-11 16:06] LABS: MEAN CORPUSCULAR HEMOGLOBIN 27.8 PG (27.0-31.0); MEAN CORPUSCULAR HGB CONC 32.7 g/dL (33.0-36.5); MEAN CORPUSCULAR VOLUME 85.1 FL (78-98); MEAN PLATELET VOLUME 7.6 FL (7.4-10.4); PLATELET COUNT 303 X10'3 (140-440); RED BLOOD COUNT 2.46 X10'6 (4.70-6.10); WHITE BLOOD COUNT 11.2 X10'3 (4.5-11.0)
[2022-03-11 16:08] LABS: HEMOGLOBIN 6.8 g/dl (14.0-17.9)
[2022-03-11 16:09] LABS: HEMATOCRIT 20.9 % (42.0-52.0)
--- NOTE | 2022-03-11 16:10 | NUR ---
Paged Dr Wilson PAGER ID: [phone] MESSAGE: [id number]. Stefan Garcia. Critical H/H .89. Jesusita Corbin [phone]
--- NOTE | 2022-03-11 17:00 | NUR ---
IV infiltrated - attempts made x4 by 3 RN's
[2022-03-11] MEDS: HYDROcodone/acetaminophen 5mg/325mg tablet PO PRN (17:20)
--- NOTE | 2022-03-11 17:45 | NUR ---
Page to PICC nurse to assist with PIV placement.
--- NOTE | 2022-03-11 17:58 | NUR ---
Call to ER to assist with PIV urgently using US. They will return call.
--- NOTE | 2022-03-11 18:02 | NUR ---
Call to ICU - they will come up and take a look.
--- NOTE | 2022-03-11 18:30 | NUR ---
DR Jose champion on floor. Advised of NO PIV access and steps taken to get assistance. He advised to continue to try and if unsuccessful, contact hospitalist for possible central line placement.
--- NOTE | 2022-03-11 18:30 | NUR ---
Problems reprioritized. Patient report given, questions answered & plan of care reviewed with MARKEL Wu.
--- NOTE | 2022-03-11 19:04 | NUR ---
HARVESTING CONTRACTOR with ultrasound attempted PIV placement twice and unsuccessful. Primary RN notified.
--- NOTE | 2022-03-11 19:23 | NUR ---
Notified Hospitalist Dr Barnes of pts no IV accesses and mulitple unsuccessful attempts. Steps are taken to get assistance at this time. Will continue to monitor pt.
[2022-03-11] MEDS: insulin glargine (Lantus) pen - multi-dose SQ SCH (22:51)
[2022-03-11] MEDS: atorvastatin 20mg tablet PO SCH (23:23)
[2022-03-12] VITALS (9 sets, daily range): BP systolic 97–150; BP diastolic 44–90
--- NOTE | 2022-03-12 00:07 | NUR ---
Small 22g IV was obtained in pts left hand. Transfusing blood at this time.
[2022-03-12] MEDS: hydrALAZINE 25 MG tablet PO SCH ×4 (04:08→20:00)
--- NOTE | 2022-03-12 04:09 | NUR ---
Afternoon meds were delayed due to no IV accesses.
[2022-03-12] MEDS: NUT.TX.GLUC.INTOLER,LAC-FR,SOY (GLUCERNA) 237 ML PO SCH ×2 (07:30→17:30)
[2022-03-12] MEDS: pantoprazole 40MG/NS 100ML BAG 100 ML IV SCH ×2 (07:55→20:06)
[2022-03-12] MEDS: K and/or MAG REPLACEMENT MC SCH ×2 (08:00→20:00)
[2022-03-12] MEDS: clindamycin 600mg/D5W 50ml 50 ML IV SCH ×4 (08:00→23:50)
[2022-03-12] MEDS: duloxetine 30mg CAPSULE.DR PO SCH (08:38)
[2022-03-12] MEDS: isosorbide mononitrate 30mg tab.SR.24H PO SCH (08:39)
[2022-03-12] MEDS: amiodarone 200mg tablet PO SCH (08:40)
[2022-03-12] MEDS: docusate sod 100mg capsule PO SCH ×2 (08:40→20:00)
[2022-03-12] MEDS: multivitamins, therapeutics tablet PO SCH (08:40)
[2022-03-12] MEDS: amLODIPine 5mg tablet PO SCH (08:40)
[2022-03-12] MEDS: heparin, porcine 5000 units/ml vial SQ SCH ×4 (08:41→23:51)
[2022-03-12] MEDS: losartan 50mg tablet PO SCH (08:41)
[2022-03-12 08:45] LABS: BASOPHILS # (AUTO) 0.1 X10'3 (0-0.2); BASOPHILS % (AUTO) 0.7 % (0-1); EOSINOPHILS # (AUTO) 0.1 X10'3 (0-0.9); EOSINOPHILS % (AUTO) 1.2 % (0-6); HEMATOCRIT 25.3 % (42.0-52.0); HEMOGLOBIN 8.5 g/dl (14.0-17.9); LYMPHOCYTES # (AUTO) 0.8 X10'3 (1.1-4.8); LYMPHOCYTES % (AUTO) 9.1 % (21-51); MEAN CORPUSCULAR HEMOGLOBIN 28.4 PG (27.0-31.0); MEAN CORPUSCULAR HGB CONC 33.7 g/dL (33.0-36.5); MEAN CORPUSCULAR VOLUME 84.1 FL (78-98); MEAN PLATELET VOLUME 7.8 FL (7.4-10.4); MONOCYTES # (AUTO) 0.4 X10'3 (0-0.9); MONOCYTES % (AUTO) 3.9 % (2-12); NEUTROPHILS # (AUTO) 7.9 X10'3 (1.8-7.7); NEUTROPHILS % (AUTO) 85.1 % (42-75); PLATELET COUNT 290 X10'3 (140-440); RED BLOOD COUNT 3.01 X10'6 (4.70-6.10); RED CELL DISTRIBUTION WIDTH 17.3 % (11.5-14.5); WHITE BLOOD COUNT 9.3 X10'3 (4.5-11.0)
[2022-03-12 08:51] LABS: ALANINE AMINOTRANSFERASE 31 U/L (12-78); ALBUMIN/GLOBULIN RATIO 0.2 (1.1-1.5); ALKALINE PHOSPHATASE 286 IU/L (46-116); ANION GAP 7 (8-16); ASPARTATE AMINO TRANSFERASE 37 U/L (10-37); BILIRUBIN,TOTAL 0.6 MG/DL (0.1-1.0); BLOOD UREA NITROGEN 57 MG/DL (7-18); BUN/CREATININE RATIO 13.1 (5.4-32.0); CHLORIDE 101 MMOL/L (99-107); CREATININE 4.34 MG/DL (0.60-1.10); GLUCOSE 132 MG/DL (70-104); POTASSIUM 3.8 MMOL/L (3.5-5.1); SODIUM 133 MMOL/L (135-145); TOTAL CARBON DIOXIDE 24.8 MMOL/L (24-32); TOTAL PROTEIN 5.4 G/DL (6.4-8.2); eGFR 13 ML/MIN
--- NOTE | 2022-03-12 08:58 | NUR ---
Page Sent promotional table spacer PAGER ID: [phone] MESSAGE: [id number] Radha. Held am Heparin SUBQ d/t HGB last night, and blood infusion from last night. Lost IV, trying to find new access. August LUNSFORD
[2022-03-12] MEDS: insulin Lispro (HumaLOG) vial - multi-dose SQ SCH (10:25)
[2022-03-12] MEDS: ceFAZolin/D5W- 1GM premix 50 ML IV SCH (14:00)
--- NOTE | 2022-03-12 14:20 | NUR ---
Central line ok to use. Confirm by MD via xray
--- NOTE | 2022-03-12 15:00 | NUR ---
Unable to give IV antibiotics d/t no IV access. Institution Librarian placed central line, then pt when to MRI. Pharmacy was called about IV antibiotics and timing. Pharmacy told RN to give clindamycin before 1999 in order to give 0000 dose.
[2022-03-12] MEDS: HYDROcodone/acetaminophen 10/325mg tab PO PRN (15:23)
--- NOTE | 2022-03-12 15:23 | NUR ---
Page Sent promotional table spacer PAGER ID: [phone] MESSAGE: [id number] Garcia. Pos BC. Gram + cocci and clusters aerobic bottle from cath. [facility]
--- NOTE | 2022-03-12 18:31 | NUR ---
Problems reprioritized. Patient report given, questions answered & plan of care reviewed with Chelita.
--- NOTE | 2022-03-12 19:06 | NUR ---
Patient in room PCU 3015. I have received report from August JEAN BAPTISTE and had the opportunity to ask questions and assume patient care.
[2022-03-12] MEDS: atorvastatin 20mg tablet PO SCH (20:06)
[2022-03-12] MEDS: insulin glargine (Lantus) pen - multi-dose SQ SCH (21:00)
[2022-03-12] MEDS: polyvinyl alcohol ophthalmic drops 15ml bottle EACHEYE PRN (23:52)
[2022-03-13] VITALS (7 sets, daily range): BP systolic 102–144; BP diastolic 50–61
--- NOTE | 2022-03-13 01:39 | NUR ---
Patient has had a decreased appetite and has not ate majority of the day. I tried to encourage patient to eat dinner and he declined. His blood sugar at 1700 was 78, 1900 was 84. I did not give the patient any insulin per protocol. 1900 blood sugar was 70. I did not feel comfortable giving the patient lantus considering his blood sugars were trending down. I offered the patient a turkey sandwich which he ate half of. Insulin and lantus were not given. I did not give patient hydralazine due to low blood pressure 97/47.
[2022-03-13] MEDS: hydrALAZINE 25 MG tablet PO SCH ×4 (02:49→20:00)
[2022-03-13 05:20] LABS: ALANINE AMINOTRANSFERASE 22 U/L (12-78); ALBUMIN/GLOBULIN RATIO 0.2 (1.1-1.5); ALKALINE PHOSPHATASE 276 IU/L (46-116); ANION GAP 8 (8-16); ASPARTATE AMINO TRANSFERASE 29 U/L (10-37); BILIRUBIN,TOTAL 0.4 MG/DL (0.1-1.0); BLOOD UREA NITROGEN 61 MG/DL (7-18); BUN/CREATININE RATIO 13.1 (5.4-32.0); CALCIUM 6.9 MG/DL (8.5-10.1); CHLORIDE 101 MMOL/L (99-107); CREATININE 4.67 MG/DL (0.60-1.10); GLUCOSE 131 MG/DL (70-104); SODIUM 131 MMOL/L (135-145); TOTAL CARBON DIOXIDE 22.3 MMOL/L (24-32); TOTAL PROTEIN 5.3 G/DL (6.4-8.2); eGFR 12 ML/MIN
--- NOTE | 2022-03-13 06:20 | NUR ---
Patient in room PCU 3009. I have received report from Chelita and had the opportunity to ask questions and assume patient care.
--- NOTE | 2022-03-13 06:47 | NUR ---
Problems reprioritized. Patient report given, questions answered & plan of care reviewed with August JEAN BAPTISTE.
[2022-03-13] MEDS: pantoprazole 40MG/NS 100ML BAG 100 ML IV SCH ×2 (07:51→21:32)
[2022-03-13] MEDS: clindamycin 600mg/D5W 50ml 50 ML IV SCH ×2 (07:56→16:16)
[2022-03-13] MEDS: isosorbide mononitrate 30mg tab.SR.24H PO SCH (07:56)
[2022-03-13] MEDS: losartan 50mg tablet PO SCH (07:57)
[2022-03-13] MEDS: amLODIPine 5mg tablet PO SCH (07:57)
[2022-03-13] MEDS: amiodarone 200mg tablet PO SCH (07:58)
[2022-03-13] MEDS: ceFAZolin/D5W- 1GM premix 50 ML IV SCH (07:58)
[2022-03-13] MEDS: duloxetine 30mg CAPSULE.DR PO SCH (07:58)
[2022-03-13] MEDS: multivitamins, therapeutics tablet PO SCH (07:58)
[2022-03-13] MEDS: heparin, porcine 5000 units/ml vial SQ SCH ×2 (07:59→16:17)
[2022-03-13] MEDS: docusate sod 100mg capsule PO SCH ×2 (08:00→20:00)
[2022-03-13] MEDS: K and/or MAG REPLACEMENT MC SCH ×2 (08:00→20:00)
[2022-03-13] MEDS: NUT.TX.GLUC.INTOLER,LAC-FR,SOY (GLUCERNA) 237 ML PO SCH ×2 (08:02→17:30)
--- NOTE | 2022-03-13 08:32 | NUR ---
Reassessment: Pt has been advanced to Renal diet on 03/[address] recommendation is for Regular diet as K and Phos have been WNL this admit. Pt continues to eat poorly, mostly 0-25% intake not meeting needs. Pt had been having very limited intake of ONS as well so they were discontinues. Communicated w/ RN pt's overall poor nutritional status and recommendation for tube feeding if MD agreeable and within POC. Pt continues on HD though currently does not have TDC per RN. LBM 03/10. Will continue to monitor. Recommendations: 1. Liberalize to Regular diet; K and Phos WNL this admit 2. NGT for supplemental versus full nutrition support given poor PO intake x 17 days, d/w RN 3. Bowel care per rx 4. Scaled wt this admit; subsequent scaled weights with dialysis Addendum: 03/13/22 at [address] Amended: Links added.
[2022-03-13] MEDS: insulin Lispro (HumaLOG) vial - multi-dose SQ SCH ×3 (09:45→19:27)
[2022-03-13] MEDS: ondansetron 4mg rapidly disintigrating tab PO PRN ×2 (10:42→21:48)
[2022-03-13] MEDS: HYDROcodone/acetaminophen 10/325mg tab PO PRN (10:42)
--- NOTE | 2022-03-13 18:31 | NUR ---
Problems reprioritized. Patient report given, questions answered & plan of care reviewed with
[2022-03-13] MEDS: atorvastatin 20mg tablet PO SCH (21:34)
[2022-03-13] MEDS: insulin glargine (Lantus) pen - multi-dose SQ SCH (21:38)
[2022-03-13] MEDS: HYDROcodone/acetaminophen 5mg/325mg tablet PO PRN (21:49)
[2022-03-14] MEDS: clindamycin 600mg/D5W 50ml 50 ML IV SCH ×3 (00:42→16:50)
[2022-03-14] MEDS: heparin, porcine 5000 units/ml vial SQ SCH ×3 (00:42→16:46)
[2022-03-14 02:00] VITALS: BP 146/46
[2022-03-14] MEDS: hydrALAZINE 25 MG tablet PO SCH ×4 (03:06→21:52)
[2022-03-14] MEDS: HYDROcodone/acetaminophen 5mg/325mg tablet PO PRN ×2 (05:27→14:22)
[2022-03-14] MEDS: ondansetron 4mg rapidly disintigrating tab PO PRN ×2 (05:27→14:19)
[2022-03-14 06:00] VITALS: BP 119/55
[2022-03-14] MEDS: NUT.TX.GLUC.INTOLER,LAC-FR,SOY (GLUCERNA) 237 ML PO SCH ×2 (07:30→17:30)
[2022-03-14] MEDS ORDERED: heparin 1,000 units/ml 10ml inj HE ONE ×2 (08:00)
[2022-03-14] MEDS ORDERED: heparin 1,000unit/ml 10ml vial 10 ML IV ONE (08:00)
[2022-03-14] MEDS ORDERED: heparin 1,000 units/ml 10ml inj IV ONE (08:00)
[2022-03-14] MEDS ORDERED: EPOETIN ALFA-EPBX 20,000 UNIT/ML 1 ML MDV IV ONE (08:00)
[2022-03-14] MEDS ORDERED: albumin (human) 25% 100ml IV 100 ML IV PRN (08:00)
[2022-03-14] MEDS: multivitamins, therapeutics tablet PO SCH (08:23)
[2022-03-14] MEDS: isosorbide mononitrate 30mg tab.SR.24H PO SCH (08:24)
[2022-03-14] MEDS: duloxetine 30mg CAPSULE.DR PO SCH (08:24)
[2022-03-14] MEDS: docusate sod 100mg capsule PO SCH ×2 (08:25→20:00)
[2022-03-14] MEDS: amiodarone 200mg tablet PO SCH (08:25)
[2022-03-14] MEDS: amLODIPine 5mg tablet PO SCH (08:26)
[2022-03-14] MEDS: ceFAZolin/D5W- 1GM premix 50 ML IV SCH (08:27)
[2022-03-14] MEDS: losartan 50mg tablet PO SCH (08:27)
[2022-03-14] MEDS: pantoprazole 40MG/NS 100ML BAG 100 ML IV SCH ×2 (08:27→21:23)
[2022-03-14 08:29] LABS: ALANINE AMINOTRANSFERASE 24 U/L (12-78); ALBUMIN 1.1 G/DL (3.4-5.0); ALBUMIN/GLOBULIN RATIO 0.2 (1.1-1.5); ALKALINE PHOSPHATASE 260 IU/L (46-116); ANION GAP 12 (8-16); ASPARTATE AMINO TRANSFERASE 26 U/L (10-37); BILIRUBIN,TOTAL 0.4 MG/DL (0.1-1.0); BLOOD UREA NITROGEN 63 MG/DL (7-18); BUN/CREATININE RATIO 12.9 (5.4-32.0); CHLORIDE 102 MMOL/L (99-107); CREATININE 4.89 MG/DL (0.60-1.10); GLUCOSE 71 MG/DL (70-104); SODIUM 136 MMOL/L (135-145); TOTAL CARBON DIOXIDE 21.6 MMOL/L (24-32); TOTAL PROTEIN 5.6 G/DL (6.4-8.2); eGFR 12 ML/MIN
[2022-03-14] MEDS ORDERED: heparin 1,000unit/ml 10ml vial 10 ML ONE (09:49)
[2022-03-14] MEDS ORDERED: fentaNYL/PF 50MCG/1 ML 2ML syringe ONE (09:49)
[2022-03-14] MEDS ORDERED: LIDOcaine 1% W/epiNEPHrine 1:100,000 20ml vial SQ ONE (09:55)
[2022-03-14] MEDS: K and/or MAG REPLACEMENT MC SCH ×2 (10:06→20:00)
[2022-03-14 11:00] VITALS: BP 93/48
[2022-03-14] MEDS: cetirizine 10mg tablet PO SCH (11:24)
[2022-03-14 12:34] LABS: HEMOGLOBIN 7.6 g/dl (14.0-17.9); MEAN CORPUSCULAR HGB CONC 33.2 g/dL (33.0-36.5); MEAN CORPUSCULAR VOLUME 84.3 FL (78-98); MEAN PLATELET VOLUME 7.6 FL (7.4-10.4); PLATELET COUNT 303 X10'3 (140-440); RED BLOOD COUNT 2.73 X10'6 (4.70-6.10); RED CELL DISTRIBUTION WIDTH 17.4 % (11.5-14.5); WHITE BLOOD COUNT 8.4 X10'3 (4.5-11.0)
[2022-03-14 15:00] VITALS: BP 95/52
--- NOTE | 2022-03-14 15:43 | NUR ---
PRESSURE ULCER EDUCATION: DEFINITION: A pressure ulcer is an area of skin that breaks down when you stay in one position too long. The constant pressure against the skin reduces the blood flow to that area and the affected tissue dies. CAUSES: "Being bedridden or in a wheelchair "Fragile skin "Having a chronic condition, such as diabetes or vascular disease "Inability to move certain parts of your body without assistance "Older age "Incontinence of urine or stool SYMPTOMS: "A reddened area that DOES NOT turn white when pressed on - this can be the beginning of a pressure ulcer "A blister, deep sore or a crater - these can be advanced pressure ulcers FIRST AID: "Relieve the pressure on this area "Keep the area clean and dry "Call your primary doctor if you see any of the above symptoms "DO NOT massage the area "DO NOT use a donut shaped or ring shaped pillow- these actually interfere with the blood flow and cause complications PREVENTION: "Check for pressure ulcers everyday "Change position at least every two hours to relieve pressure "Use items that help relieve pressure- pillows, sheepskin, foam padding, and powders. "Keep skin clean and dry "Eat healthy well balanced meals "Exercise daily IF YOU SEE ANY OF THESE SYMPTOMS WHILE IN THE HOSPITAL - TELL YOUR NURSE IMMEDIATELY. IF YOU SEE ANY OF THESE SYMPTOMS WHILE AT HOME OR HAVE ANY QUESTIONS OR CONCERNS ABOUT PRESSURE ULCERS - CALL YOUR PRIMARY DOCTOR IMMEDIATELY. Addendum: 03/14/22 at 1544 by Priscilla Bernard LVN Amended: Links added.
--- NOTE | 2022-03-14 16:19 | NUR ---
Unable to obtain orthostatic vitals due to patient being too weak to get out of bed. Pt refused.
[2022-03-14 18:00] VITALS: BP 91/61
--- NOTE | 2022-03-14 18:15 | NUR ---
Patient in room PCU 3015. I have received report from Delfina JEAN BAPTISTE and had the opportunity to ask questions and assume patient care.
--- NOTE | 2022-03-14 20:00 | NUR ---
Orthostatics are not being done at this time as patient is currently receiving dialysis. Addendum: 03/15/22 at 0001 by Silvia Calvillo RN Amended: Links added.
[2022-03-14] MEDS: atorvastatin 20mg tablet PO SCH (21:47)
[2022-03-14 22:00] VITALS: BP 112/46
[2022-03-14] MEDS: insulin glargine (Lantus) pen - multi-dose SQ SCH (22:00)
[2022-03-15] MEDS: heparin, porcine 5000 units/ml vial SQ SCH ×3 (00:29→17:36)
[2022-03-15] MEDS: clindamycin 600mg/D5W 50ml 50 ML IV SCH ×3 (00:32→17:35)
[2022-03-15 04:00] VITALS: BP 111/56
[2022-03-15] MEDS: mineral oil/petrolatum, white cream 113gm jar TP SCH ×3 (04:01→19:32)
[2022-03-15] MEDS: hydrALAZINE 25 MG tablet PO SCH ×4 (04:04→19:20)
--- NOTE | 2022-03-15 04:47 | NUR ---
Patient is too weak and fatigued this shift to do orthostatics.
[2022-03-15 04:56] LABS: ALANINE AMINOTRANSFERASE 15 U/L (12-78); ALBUMIN 1.1 G/DL (3.4-5.0); ALBUMIN/GLOBULIN RATIO 0.2 (1.1-1.5); ALKALINE PHOSPHATASE 261 IU/L (46-116); ANION GAP 6 (8-16); ASPARTATE AMINO TRANSFERASE 23 U/L (10-37); BILIRUBIN,TOTAL 0.4 MG/DL (0.1-1.0); BLOOD UREA NITROGEN 40 MG/DL (7-18); CHLORIDE 103 MMOL/L (99-107); CREATININE 4.01 MG/DL (0.60-1.10); GLUCOSE 139 MG/DL (70-104); POTASSIUM 3.9 MMOL/L (3.5-5.1); SODIUM 135 MMOL/L (135-145); TOTAL PROTEIN 5.7 G/DL (6.4-8.2); eGFR 15 ML/MIN
[2022-03-15 06:00] VITALS: BP 111/54
--- NOTE | 2022-03-15 06:30 | NUR ---
Problems reprioritized. Patient report given, questions answered & plan of care reviewed with Annelise Redding RN and Crystal RN.
[2022-03-15] MEDS: NUT.TX.GLUC.INTOLER,LAC-FR,SOY (GLUCERNA) 237 ML PO SCH ×2 (07:30→17:30)
[2022-03-15] MEDS: K and/or MAG REPLACEMENT MC SCH ×2 (08:00→19:19)
[2022-03-15] MEDS: pantoprazole 40MG/NS 100ML BAG 100 ML IV SCH ×2 (08:15→19:19)
[2022-03-15] MEDS: ceFAZolin/D5W- 1GM premix 50 ML IV SCH (08:15)
[2022-03-15] MEDS: cetirizine 10mg tablet PO SCH (08:22)
[2022-03-15] MEDS: amLODIPine 5mg tablet PO SCH (08:23)
[2022-03-15] MEDS: multivitamins, therapeutics tablet PO SCH (08:24)
[2022-03-15] MEDS: isosorbide mononitrate 30mg tab.SR.24H PO SCH (08:24)
[2022-03-15] MEDS: duloxetine 30mg CAPSULE.DR PO SCH (08:25)
[2022-03-15] MEDS: docusate sod 100mg capsule PO SCH ×2 (08:25→19:32)
[2022-03-15] MEDS: losartan 50mg tablet PO SCH (08:25)
[2022-03-15] MEDS: amiodarone 200mg tablet PO SCH (08:26)
[2022-03-15 11:00] VITALS: BP 115/58
[2022-03-15 15:00] VITALS: BP 114/51
[2022-03-15 18:00] VITALS: BP 109/51
[2022-03-15] MEDS: diphenhydrAMINE 25mg capsule PO PRN (19:23)
[2022-03-15] MEDS: insulin Lispro (HumaLOG) vial - multi-dose SQ SCH (19:30)
[2022-03-15] MEDS: atorvastatin 20mg tablet PO SCH (21:27)
[2022-03-15] MEDS: insulin glargine (Lantus) pen - multi-dose SQ SCH (21:36)
[2022-03-15 22:00] VITALS: BP 139/63
[2022-03-16] MEDS: heparin, porcine 5000 units/ml vial SQ SCH ×2 (00:08→08:05)
[2022-03-16] MEDS: clindamycin 600mg/D5W 50ml 50 ML IV SCH ×2 (00:08→08:03)
[2022-03-16 02:00] VITALS: BP 155/58
[2022-03-16] MEDS: hydrALAZINE 25 MG tablet PO SCH ×2 (02:49→08:07)
[2022-03-16] MEDS: polyvinyl alcohol ophthalmic drops 15ml bottle EACHEYE PRN (02:51)
[2022-03-16 05:31] LABS: ALANINE AMINOTRANSFERASE 14 U/L (12-78); ALBUMIN 1.2 G/DL (3.4-5.0); ALBUMIN/GLOBULIN RATIO 0.3 (1.1-1.5); ALKALINE PHOSPHATASE 258 IU/L (46-116); ANION GAP 7 (8-16); ASPARTATE AMINO TRANSFERASE 25 U/L (10-37); BILIRUBIN,TOTAL 0.3 MG/DL (0.1-1.0); BLOOD UREA NITROGEN 45 MG/DL (7-18); BUN/CREATININE RATIO 9.4 (5.4-32.0); CALCIUM 7.1 MG/DL (8.5-10.1); CHLORIDE 100 MMOL/L (99-107); CREATININE 4.77 MG/DL (0.60-1.10); GLUCOSE 64 MG/DL (70-104); POTASSIUM 3.9 MMOL/L (3.5-5.1); SODIUM 133 MMOL/L (135-145); TOTAL PROTEIN 5.7 G/DL (6.4-8.2); eGFR 12 ML/MIN
[2022-03-16 06:00] VITALS: BP 124/57
--- NOTE | 2022-03-16 06:34 | NUR ---
Problems reprioritized. Patient report given, questions answered & plan of care reviewed with MARKEL Mejia.
[2022-03-16] MEDS: NUT.TX.GLUC.INTOLER,LAC-FR,SOY (GLUCERNA) 237 ML PO SCH ×2 (07:30→08:00)
[2022-03-16] MEDS ORDERED: EPOETIN ALFA-EPBX 20,000 UNIT/ML 1 ML MDV IV ONE (08:00)
[2022-03-16] MEDS: K and/or MAG REPLACEMENT MC SCH (08:00)
[2022-03-16] MEDS ORDERED: heparin 1,000unit/ml 10ml vial 10 ML IV ONE (08:00)
[2022-03-16] MEDS ORDERED: heparin 1,000 units/ml 10ml inj IV ONE (08:00)
[2022-03-16] MEDS ORDERED: heparin 1,000 units/ml 10ml inj HE ONE ×2 (08:00)
[2022-03-16] MEDS ORDERED: iron sucrose complex injection 300 MG in normal saline 250ml IV soln 250 ML IV SCH (08:00)
[2022-03-16] MEDS ORDERED: albumin (human) 25% 100ml IV 100 ML IV PRN (08:00)
[2022-03-16] MEDS: pantoprazole 40MG/NS 100ML BAG 100 ML IV SCH (08:00)
[2022-03-16] MEDS: cetirizine 10mg tablet PO SCH (08:04)
[2022-03-16] MEDS: amiodarone 200mg tablet PO SCH (08:06)
[2022-03-16] MEDS: duloxetine 30mg CAPSULE.DR PO SCH (08:06)
[2022-03-16] MEDS: isosorbide mononitrate 30mg tab.SR.24H PO SCH (08:07)
[2022-03-16] MEDS: amLODIPine 5mg tablet PO SCH (08:08)
[2022-03-16] MEDS: docusate sod 100mg capsule PO SCH (08:09)
[2022-03-16] MEDS: losartan 50mg tablet PO SCH (08:09)
[2022-03-16] MEDS: multivitamins, therapeutics tablet PO SCH (08:09)
[2022-03-16] MEDS: mineral oil/petrolatum, white cream 113gm jar TP SCH (08:10)
[2022-03-16] MEDS: ceFAZolin/D5W- 1GM premix 50 ML IV SCH (08:11)
[2022-03-16 08:39] LABS: HEMATOCRIT 22.9 % (42.0-52.0); HEMOGLOBIN 7.6 g/dl (14.0-17.9); MEAN CORPUSCULAR HGB CONC 33.2 g/dL (33.0-36.5); RED BLOOD COUNT 2.71 X10'6 (4.70-6.10)
[2022-03-16 08:42] LABS: MEAN CORPUSCULAR VOLUME 84.4 FL (78-98); MEAN PLATELET VOLUME 7.3 FL (7.4-10.4); PLATELET COUNT 280 X10'3 (140-440); RED CELL DISTRIBUTION WIDTH 17.4 % (11.5-14.5); WHITE BLOOD COUNT 6.8 X10'3 (4.5-11.0)
[2022-03-16 11:00] VITALS: BP 96/57
--- NOTE | 2022-03-16 15:30 | NUR ---
Per orders discharged pt to [facility]. Pt left via ambulance transport with all belongings. Called report to MARKEL Gomez and per facility, pt left with [facility]. Family notified of pt transport
== END 2022-03-16 16:26 | DRG 280 ==
LOC: ER 10:31 → ED HOLD 15:49 → PCU 3S 21:22
PROVIDERS: ADMIT Family Medicine; ATTEND Family Medicine
PROC: 4A023N7 Measurement of Cardiac Sampling and Pressure, Left Heart, Percutaneous Approach (ICD-10-PCS; 2022-02-26)
PROC: B2111ZZ Fluoroscopy of Multiple Coronary Arteries using Low Osmolar Contrast (ICD-10-PCS; 2022-02-26)
PROC: B2151ZZ Fluoroscopy of Left Heart using Low Osmolar Contrast (ICD-10-PCS; 2022-02-26)
PROC: B2131ZZ Fluoroscopy of Multiple Coronary Artery Bypass Grafts using Low Osmolar Contrast (ICD-10-PCS; 2022-02-26)
PROC: 30233N1 Transfusion of Nonautologous Red Blood Cells into Peripheral Vein, Percutaneous Approach (ICD-10-PCS; 2022-02-28)
PROC: 5A1D70Z Performance of Urinary Filtration, Intermittent, Less than 6 Hours Per Day (ICD-10-PCS; 2022-03-04)
PROC: 02HV33Z Insertion of Infusion Device into Superior Vena Cava, Percutaneous Approach (ICD-10-PCS; 2022-03-04)
PROC: B548ZZA Ultrasonography of Superior Vena Cava, Guidance (ICD-10-PCS; 2022-03-04)
PROC: B5181ZA Fluoroscopy of Superior Vena Cava using Low Osmolar Contrast, Guidance (ICD-10-PCS; 2022-03-04)
PROC: 5A1D70Z Performance of Urinary Filtration, Intermittent, Less than 6 Hours Per Day (ICD-10-PCS; 2022-03-05)
PROC: 5A1D70Z Performance of Urinary Filtration, Intermittent, Less than 6 Hours Per Day (ICD-10-PCS; 2022-03-07)
PROC: 5A1D70Z Performance of Urinary Filtration, Intermittent, Less than 6 Hours Per Day (ICD-10-PCS; 2022-03-09)
PROC: 05HY33Z Insertion of Infusion Device into Upper Vein, Percutaneous Approach (ICD-10-PCS; 2022-03-13)
PROC: B54NZZA Ultrasonography of Left Upper Extremity Veins, Guidance (ICD-10-PCS; 2022-03-13)
PROC: 5A1D70Z Performance of Urinary Filtration, Intermittent, Less than 6 Hours Per Day (ICD-10-PCS; principal; 2022-03-14)
PROC: 0JH63XZ Insertion of Tunneled Vascular Access Device into Chest Subcutaneous Tissue and Fascia, Percutaneous Approach (ICD-10-PCS; 2022-03-14)
PROC: 02H633Z Insertion of Infusion Device into Right Atrium, Percutaneous Approach (ICD-10-PCS; 2022-03-14)
PROC: B548ZZA Ultrasonography of Superior Vena Cava, Guidance (ICD-10-PCS; 2022-03-14)
PROC: B5181ZA Fluoroscopy of Superior Vena Cava using Low Osmolar Contrast, Guidance (ICD-10-PCS; 2022-03-14)
PROC: 5A1D70Z Performance of Urinary Filtration, Intermittent, Less than 6 Hours Per Day (ICD-10-PCS; 2022-03-16)
DX: I21.4 Non-ST elevation (NSTEMI) myocardial infarction (principal); I50.33 Acute on chronic diastolic (congestive) heart failure; A41.01 Sepsis due to Methicillin susceptible Staphylococcus aureus; E43 Unspecified severe protein-calorie malnutrition; N17.9 Acute kidney failure, unspecified; I13.0 Hypertensive heart and chronic kidney disease with heart failure and stage 1 through stage 4 chronic kidney disease, or unspecified chronic kidney disease; D62 Acute posthemorrhagic anemia; E87.1 Hypo-osmolality and hyponatremia; I31.9 Disease of pericardium, unspecified; I47.2 Ventricular tachycardia; K92.1 Melena; I82.509 Chronic embolism and thrombosis of unspecified deep veins of unspecified lower extremity; E87.2 Acidosis; N18.4 Chronic kidney disease, stage 4 (severe); I44.1 Atrioventricular block, second degree; E78.5 Hyperlipidemia, unspecified; E78.00 Pure hypercholesterolemia, unspecified; D50.9 Iron deficiency anemia, unspecified; E11.319 Type 2 diabetes mellitus with unspecified diabetic retinopathy without macular edema; E66.01 Morbid (severe) obesity due to excess calories; F32.A Depression, unspecified; I25.10 Atherosclerotic heart disease of native coronary artery without angina pectoris; G89.29 Other chronic pain; K21.9 Gastro-esophageal reflux disease without esophagitis; H57.89 Other specified disorders of eye and adnexa; M54.2 Cervicalgia; M79.603 Pain in arm, unspecified; R19.7 Diarrhea, unspecified; R30.0 Dysuria; W18.39XA Other fall on same level, initial encounter; Y93.01 Activity, walking, marching and hiking; R80.9 Proteinuria, unspecified; I48.91 Unspecified atrial fibrillation; L30.9 Dermatitis, unspecified; S46.011A Strain of muscle(s) and tendon(s) of the rotator cuff of right shoulder, initial encounter; R29.6 Repeated falls; Z79.01 Long term (current) use of anticoagulants; Z82.49 Family history of ischemic heart disease and other diseases of the circulatory system; Z83.3 Family history of diabetes mellitus; Z86.711 Personal history of pulmonary embolism; Z95.1 Presence of aortocoronary bypass graft; Z95.5 Presence of coronary angioplasty implant and graft; Z99.2 Dependence on renal dialysis; Z91.010 Allergy to peanuts; Y92.89 Other specified places as the place of occurrence of the external cause; Y99.8 Other external cause status; Z79.899 Other long term (current) drug therapy; Z68.32 Body mass index [BMI] 32.0-32.9, adult; I36.1 Nonrheumatic tricuspid (valve) insufficiency
CPT/HCPCS: 36415; 36430; 36556; 36558; 70544; 70551; 71045; 72141; 73130; 73200; 73221; 76770; 76937; 77001; 80048; 80053; 80061; 80202; 81001; 82570; 82595; 82607; 82728; 82948; 83540; 83550; 83605; 83735; 83880; 84100; 84145; 84155; 84156; 84165; 84166; 84300; 84484; 84560; 85008; 85025; 85027; 85379; 85610; 85651; 86038; 86160; 86256; 86430; 86592; 86704; 86706; 86803; 86885; 86900; 86901; 86920; 87040; 87077; 87081; 87186; 87207; 87340; 93005; 93306; 93308; 93459; 93880; 93970; 93971; 97110; 97116; 97161; 97530; 99152; 99153; 99285; A4620; A5120; A6258; A9270; C1750; C1751; C1760; C1769; C1894; C9113; G0257; G0378; J0360; J0690; J0696; J1644; J1650; J1756; J1815; J2150; J2250; J2405; J3010; J3370; J3430; J3490; J7030; J7050; J7070; P9016; Q0163; Q4081; Q9967

== ENCOUNTER 2022-05-26 09:42 | Emergency (ER) | payer MEDICARE ==
[~2022-05-26] VITALS: Ht 167.6 cm; Wt 74.2 kg
[~2022-05-26 09:42] MED LIST changes: +AMA1T PO; +CLOP75TA34 PO; -DEXL60CA3 PO; -GLUC-131 PO; -INSU100V9 SQ; -ISOS30TA84 PO; +ISOS60TA71 PO; +LANTUS SQ; +LOSA100T57 PO; +NOVLG SQ; -WARF-113 PO; +WARF-55 PO
[2022-05-26 10:09] LABS: BASOPHILS # (AUTO) 0.1 X10'3 (0-0.2); BASOPHILS % (AUTO) 0.8 % (0-1); EOSINOPHILS # (AUTO) 0.2 X10'3 (0-0.9); EOSINOPHILS % (AUTO) 1.9 % (0-6); HEMATOCRIT 38.6 % (42.0-52.0); HEMOGLOBIN 12.3 g/dl (14.0-17.9); LYMPHOCYTES # (AUTO) 0.8 X10'3 (1.1-4.8); LYMPHOCYTES % (AUTO) 7.3 % (21-51); MEAN CORPUSCULAR HEMOGLOBIN 25.5 PG (27.0-31.0); MEAN CORPUSCULAR HGB CONC 31.9 g/dL (33.0-36.5); MEAN PLATELET VOLUME 7.1 FL (7.4-10.4); MONOCYTES # (AUTO) 0.5 X10'3 (0-0.9); MONOCYTES % (AUTO) 4.9 % (2-12); NEUTROPHILS # (AUTO) 9.4 X10'3 (1.8-7.7); NEUTROPHILS % (AUTO) 85.1 % (42-75); PLATELET COUNT 429 X10'3 (140-440); RED BLOOD COUNT 4.82 X10'6 (4.70-6.10); RED CELL DISTRIBUTION WIDTH 19.4 % (11.5-14.5)
[2022-05-26 10:29] LABS: ALANINE AMINOTRANSFERASE 37 U/L (12-78); ALBUMIN 2.5 G/DL (3.4-5.0); ALBUMIN/GLOBULIN RATIO 0.5 (1.1-1.5); ALKALINE PHOSPHATASE 153 IU/L (46-116); ANION GAP 8 (8-16); ASPARTATE AMINO TRANSFERASE 15 U/L (10-37); BLOOD UREA NITROGEN 10 MG/DL (7-18); BUN/CREATININE RATIO 6.5 (5.4-32.0); CALCIUM 8.5 MG/DL (8.5-10.1); CHLORIDE 100 MMOL/L (99-107); CREATININE 1.54 MG/DL (0.60-1.10); GLUCOSE 216 MG/DL (70-104); POTASSIUM 4.4 MMOL/L (3.5-5.1); SODIUM 138 MMOL/L (135-145); TOTAL CARBON DIOXIDE 29.6 MMOL/L (24-32); TOTAL PROTEIN 7.2 G/DL (6.4-8.2); eGFR 44 ML/MIN
[2022-05-26 11:13] LABS: ACANTHOCYTES FEW; ANISOCYTOSIS 2+; ELLIPTOCYTES FEW; PLATELET ESTIMATE NORMAL
[2022-05-26] MEDS ORDERED: HYDROcodone/acetaminophen 5mg/325mg tablet PO ONE (13:50)
[2022-05-26 15:17] VITALS: BP 154/78
[2022-05-26] MEDS ORDERED: DOXY100C77 PO (15:19)
[2022-05-26] MEDS ORDERED: HYDR-3965 PO (15:19)
[2022-05-26] MEDS ORDERED: CEPH250T PO (15:19)
== END 2022-05-26 15:40 | disposition home or self-care (01) ==
LOC: ER 09:43
DX: N45.1 Epididymitis (principal); N50.811 Right testicular pain; I25.10 Atherosclerotic heart disease of native coronary artery without angina pectoris; I11.0 Hypertensive heart disease with heart failure; I50.9 Heart failure, unspecified; E78.00 Pure hypercholesterolemia, unspecified; K21.9 Gastro-esophageal reflux disease without esophagitis; E11.9 Type 2 diabetes mellitus without complications; G89.29 Other chronic pain; F32.A Depression, unspecified; Z86.19 Personal history of other infectious and parasitic diseases; Z86.718 Personal history of other venous thrombosis and embolism; Z90.89 Acquired absence of other organs; Z98.890 Other specified postprocedural states; Z91.010 Allergy to peanuts; Z79.82 Long term (current) use of aspirin; Z79.2 Long term (current) use of antibiotics; Z79.4 Long term (current) use of insulin; Z79.899 Other long term (current) drug therapy
CPT/HCPCS: 36415; 76870; 80053; 85008; 85025; 93976; 99284

== ENCOUNTER 2022-09-23 17:46 | Emergency (ER) | payer MEDICARE ==
[~2022-09-23] VITALS: Ht 167.6 cm; Wt 79.0 kg
[~2022-09-23 17:46] MED LIST changes: -AMA1T PO; +AMIO200T61 PO; -ASPI-1265 PO; +CETI10TA14 PO; -CLOP75TA34 PO; +FURO20TA4 PO; +HYDR-3965 PO; -ISOS60TA71 PO; -LOSA100T57 PO; -MULT-1172 PO; +NITR0.4T51 PO; +PANT40TA54 PO; +VALS160T30 PO; -WARF-55 PO
[2022-09-23 18:52] VITALS: BP 178/98
[2022-09-23] MEDS ORDERED: BENZ-38 PO (19:33)
[2022-09-23] MEDS ORDERED: PSEU120T55 PO (19:33)
== END 2022-09-23 19:55 | disposition home or self-care (01) ==
LOC: ER 17:47
DX: J06.9 Acute upper respiratory infection, unspecified (principal); I11.9 Hypertensive heart disease without heart failure; E78.00 Pure hypercholesterolemia, unspecified; K21.9 Gastro-esophageal reflux disease without esophagitis; E11.9 Type 2 diabetes mellitus without complications; F32.A Depression, unspecified; Z90.49 Acquired absence of other specified parts of digestive tract; Z98.890 Other specified postprocedural states; Z91.010 Allergy to peanuts; Z79.899 Other long term (current) drug therapy; Z79.1 Long term (current) use of non-steroidal anti-inflammatories (NSAID); Z79.2 Long term (current) use of antibiotics
CPT/HCPCS: 99284

== ENCOUNTER 2022-11-04 17:07 | Inpatient (IN) | payer MEDICARE ==
[~2022-11-04] VITALS: Ht 167.6 cm; Wt 80.0 kg
[~2022-11-04 17:07] MED LIST changes: +ASPI-611 PO; -CETI10TA14 PO; +FURO-150 PO; -FURO20TA4 PO; +LABE100T8 PO; -VALS160T30 PO; +VALS320T17 PO; +VIT1TABL50 PO
[2022-11-04 18:18] LABS: BASOPHILS % (AUTO) 0.2 % (0-1); EOSINOPHILS # (AUTO) 0.2 X10'3 (0-0.9); EOSINOPHILS % (AUTO) 2.6 % (0-6); HEMATOCRIT 35.7 % (42.0-52.0); HEMOGLOBIN 11.6 g/dl (14.0-17.9); LYMPHOCYTES # (AUTO) 0.6 X10'3 (1.1-4.8); MEAN CORPUSCULAR HEMOGLOBIN 29.5 PG (27.0-31.0); MEAN CORPUSCULAR HGB CONC 32.4 g/dL (33.0-36.5); MEAN PLATELET VOLUME 7.8 FL (7.4-10.4); MONOCYTES # (AUTO) 0.5 X10'3 (0-0.9); MONOCYTES % (AUTO) 7.9 % (2-12); NEUTROPHILS # (AUTO) 4.5 X10'3 (1.8-7.7); NEUTROPHILS % (AUTO) 78.3 % (42-75); PLATELET COUNT 254 X10'3 (140-440); RED BLOOD COUNT 3.92 X10'6 (4.70-6.10); RED CELL DISTRIBUTION WIDTH 16.2 % (11.5-14.5); WHITE BLOOD COUNT 5.8 X10'3 (4.5-11.0)
[2022-11-04 18:29] LABS: APTT 25 SECONDS (22-32)
[2022-11-04 18:35] LABS: ALANINE AMINOTRANSFERASE 29 U/L (12-78); ALBUMIN 2.4 G/DL (3.4-5.0); ALBUMIN/GLOBULIN RATIO 0.6 (1.1-1.5); ALKALINE PHOSPHATASE 149 IU/L (46-116); ANION GAP 5 (8-16); ASPARTATE AMINO TRANSFERASE 14 U/L (10-37); BILIRUBIN,TOTAL 0.7 MG/DL (0.1-1.0); BLOOD UREA NITROGEN 17 MG/DL (7-18); BUN/CREATININE RATIO 5.6 (5.4-32.0); CALCIUM 8.2 MG/DL (8.5-10.1); CHLORIDE 99 MMOL/L (99-107); CREATININE 3.04 MG/DL (0.60-1.10); GLUCOSE 328 MG/DL (70-104); POTASSIUM 3.7 MMOL/L (3.5-5.1); SODIUM 134 MMOL/L (135-145); TOTAL CARBON DIOXIDE 29.9 MMOL/L (24-32); TOTAL PROTEIN 6.5 G/DL (6.4-8.2); eGFR 20 ML/MIN
[2022-11-04 18:59] LABS: CLARITY,URINE CLEAR (Clear); COLOR,URINE YELLOW (Yellow); GLUCOSE, URINE >=1000 mg/dl (Neg); KETONES,URINE NEGATIVE (Neg); LEUKOCYTE ESTERASE ,URINE NEGATIVE (Neg); NITRITES, URINE NEGATIVE (Neg); OCCULT BLOOD,URINE NEGATIVE (Neg); PH,URINE 8.5 (4.8-8.0); PROTEIN,URINE >=300 mg/dl (Neg); UROBILINOGEN,URINE 0.2 E.U/dL (0.2-1.0)
[2022-11-04 19:00] LABS: UA COLLECTION TYPE VOIDED
[2022-11-04 19:14] LABS: BACTERIA,URINE NONE SEEN /HPF (Neg); HYALINE CASTS 0-3 /LPF (NEGATIVE); MUCUS STRANDS NONE SEEN /LPF (Neg); RBC,URINE 0-2 /HPF (0-2); SQUAMOUS EPITHELIAL CELL,UR NONE SEEN /LPF (FEW); WBC,URINE 0-4 /HPF (0-4)
[2022-11-04] MEDS ORDERED: mag hydrox/Alum hydrox/simeth 30ml oral suspension PO PRN (21:45)
[2022-11-04] MEDS ORDERED: acetaminophen 325mg tablet PO PRN ×2 (21:45)
[2022-11-04] MEDS ORDERED: insulin Lispro (HumaLOG) vial - multi-dose SQ SCH (21:45)
[2022-11-04] MEDS ORDERED: magnesium hydroxide 30ml (MOM) UD suspension PO PRN (21:45)
[2022-11-04] MEDS ORDERED: dextrose 50%-water 50ml dispensing syringe IV PRN ×2 (21:45)
[2022-11-04] MEDS ORDERED: ondansetron/PF 4mg/2ml inj IV PRN (21:45)
[2022-11-04] MEDS ORDERED: HYDROcodone/acetaminophen 5mg/325mg tablet PO PRN (21:45)
[2022-11-04] MEDS ORDERED: DEXTROSE 15 GM of carb/4 tabs (each vial/BOTTLE has 4 tablets) PO PRN ×2 (21:45)
[2022-11-04] MEDS ORDERED: morphine 2 MG/ML inj. syringe IV PRN ×2 (21:45)
[2022-11-04] MEDS ORDERED: MESSAGE TO PHARMACY PO ONE (21:45)
[2022-11-04] MEDS ORDERED: glucagon, human recombinant 1mg kit SUBCUT PRN (21:45)
--- NOTE | 2022-11-05 00:19 | NUR ---
MRI screen done
[2022-11-05] MEDS ORDERED: labetalol 100mg tablet PO SCH ×2 (00:45→08:00)
--- NOTE | 2022-11-05 01:22 | NUR ---
0045 Dr Nassar notified of elevated bp's an that pt did not get dose of Labetalol last night, now order recived 100mg Labetalol po
[2022-11-05 04:48] LABS: BASOPHILS % (AUTO) 0.6 % (0-1); EOSINOPHILS # (AUTO) 0.2 X10'3 (0-0.9); EOSINOPHILS % (AUTO) 4.2 % (0-6); HEMATOCRIT 33.7 % (42.0-52.0); HEMOGLOBIN 11.3 g/dl (14.0-17.9); LYMPHOCYTES # (AUTO) 0.8 X10'3 (1.1-4.8); LYMPHOCYTES % (AUTO) 13.2 % (21-51); MEAN CORPUSCULAR HEMOGLOBIN 30.4 PG (27.0-31.0); MEAN CORPUSCULAR HGB CONC 33.5 g/dL (33.0-36.5); MEAN CORPUSCULAR VOLUME 90.7 FL (78-98); MONOCYTES # (AUTO) 0.5 X10'3 (0-0.9); MONOCYTES % (AUTO) 8.1 % (2-12); NEUTROPHILS # (AUTO) 4.3 X10'3 (1.8-7.7); NEUTROPHILS % (AUTO) 73.9 % (42-75); PLATELET COUNT 224 X10'3 (140-440); RED BLOOD COUNT 3.71 X10'6 (4.70-6.10); RED CELL DISTRIBUTION WIDTH 15.8 % (11.5-14.5); WHITE BLOOD COUNT 5.8 X10'3 (4.5-11.0)
[2022-11-05 05:02] LABS: ALBUMIN 2.1 G/DL (3.4-5.0); ANION GAP 5 (8-16); BLOOD UREA NITROGEN 17 MG/DL (7-18); BUN/CREATININE RATIO 5.5 (5.4-32.0); CALCIUM 8.3 MG/DL (8.5-10.1); CHLORIDE 100 MMOL/L (99-107); CREATININE 3.11 MG/DL (0.60-1.10); GLUCOSE 247 MG/DL (70-104); POTASSIUM 3.7 MMOL/L (3.5-5.1); SODIUM 135 MMOL/L (135-145); eGFR 20 ML/MIN
[2022-11-05] MEDS ORDERED: docusate sod 100mg capsule PO SCH (08:00)
[2022-11-05] MEDS ORDERED: pantoprazole 40mg Tablet.DR PO SCH (08:00)
[2022-11-05] MEDS ORDERED: hydrALAZINE 25 MG tablet PO SCH (08:00)
[2022-11-05] MEDS ORDERED: amiodarone 200mg tablet PO SCH (08:00)
[2022-11-05] MEDS ORDERED: losartan 50mg tablet PO SCH (08:00)
[2022-11-05] MEDS ORDERED: amLODIPine 5mg tablet PO SCH (08:00)
[2022-11-05] MEDS ORDERED: non-formulary drug (Vit B Cmplx 3/FA/Vit C/Biotin (Rena-Vite Rx Tablet) 1 TAB) PO SCH (08:00)
[2022-11-05] MEDS ORDERED: furosemide 40mg tablet PO SCH (08:00)
[2022-11-05] MEDS ORDERED: aspirin 81mg, enteric-coated 1 TAB TABLET.DR PO SCH (08:00)
[2022-11-05] MEDS ORDERED: duloxetine 30mg CAPSULE.DR PO SCH (08:00)
[2022-11-05] MEDS ORDERED: atorvastatin 20mg tablet PO SCH (08:00)
[2022-11-05] MEDS ORDERED: heparin 1,000unit/ml 10ml vial 10 ML IV ONE (09:25)
[2022-11-05] MEDS ORDERED: normal saline 1000ml 250 ML IV PRN (09:25)
[2022-11-05] MEDS ORDERED: heparin 1,000 units/ml 10ml inj HE ONE ×2 (09:30)
--- NOTE | 2022-11-05 12:45 | NUR ---
when talking to the patient he noticed that he is once again having trouble speaking and feels like his words are coming more slowly and more slurred than they have been today. denies any other neuro deficits. O2 saturation surrently 86% with no c/o new SOB.
[2022-11-05 13:01] VITALS: BP 139/58
[2022-11-05] MEDS ORDERED: insulin glargine (Lantus) pen - multi-dose SQ SCH (21:00)
[2022-11-08 05:14] LABS: HBSAG SCREEN Negative (Negative)
== END 2022-11-05 17:07 | disposition home health service (06) | DRG 91 ==
LOC: ER 17:08 → ED HOLD 21:49
PROVIDERS: ADMIT Internal Medicine; ATTEND Internal Medicine
DX: R47.81 Slurred speech (principal); N18.6 End stage renal disease; I13.2 Hypertensive heart and chronic kidney disease with heart failure and with stage 5 chronic kidney disease, or end stage renal disease; E11.22 Type 2 diabetes mellitus with diabetic chronic kidney disease; E78.00 Pure hypercholesterolemia, unspecified; F32.A Depression, unspecified; G89.29 Other chronic pain; K21.9 Gastro-esophageal reflux disease without esophagitis; I25.10 Atherosclerotic heart disease of native coronary artery without angina pectoris; I48.0 Paroxysmal atrial fibrillation; I50.9 Heart failure, unspecified; Z79.4 Long term (current) use of insulin; Z79.82 Long term (current) use of aspirin; Z79.899 Other long term (current) drug therapy; I25.2 Old myocardial infarction; Z82.49 Family history of ischemic heart disease and other diseases of the circulatory system; Z83.3 Family history of diabetes mellitus; Z95.1 Presence of aortocoronary bypass graft; Z99.2 Dependence on renal dialysis; Z86.711 Personal history of pulmonary embolism; Z86.718 Personal history of other venous thrombosis and embolism; Z91.010 Allergy to peanuts
CPT/HCPCS: 36415; 70450; 70551; 71045; 80048; 80053; 81001; 85025; 85610; 85730; 87340; 93005; 93880; 99285; A4615; G0378; J1815

== ENCOUNTER 2022-11-06 07:06 | Emergency (ER) | payer MEDICARE ==
[~2022-11-06] VITALS: Ht 167.6 cm; Wt 68.0 kg
[2022-11-06 07:49] LABS: HEMOGLOBIN 10.8 g/dl (14.0-17.9); LYMPHOCYTES # (AUTO) 0.6 X10'3 (1.1-4.8); MEAN CORPUSCULAR HEMOGLOBIN 30.4 PG (27.0-31.0); MONOCYTES # (AUTO) 0.4 X10'3 (0-0.9); WHITE BLOOD COUNT 5.3 X10'3 (4.5-11.0)
[2022-11-06 07:51] LABS: BASOPHILS % (AUTO) 0.5 % (0-1); EOSINOPHILS % (AUTO) 0.6 % (0-6); HEMATOCRIT 32.4 % (42.0-52.0); LYMPHOCYTES % (AUTO) 11.9 % (21-51); MEAN CORPUSCULAR HGB CONC 33.4 g/dL (33.0-36.5); MEAN CORPUSCULAR VOLUME 90.8 FL (78-98); MEAN PLATELET VOLUME 7.8 FL (7.4-10.4); MONOCYTES % (AUTO) 6.8 % (2-12); NEUTROPHILS # (AUTO) 4.2 X10'3 (1.8-7.7); NEUTROPHILS % (AUTO) 80.2 % (42-75); PLATELET COUNT 255 X10'3 (140-440); RED BLOOD COUNT 3.57 X10'6 (4.70-6.10); RED CELL DISTRIBUTION WIDTH 16.3 % (11.5-14.5)
[2022-11-06 08:07] LABS: ALANINE AMINOTRANSFERASE 24 U/L (12-78); ALBUMIN 2.1 G/DL (3.4-5.0); ALBUMIN/GLOBULIN RATIO 0.6 (1.1-1.5); ALKALINE PHOSPHATASE 129 IU/L (46-116); ANION GAP 4 (8-16); ASPARTATE AMINO TRANSFERASE 16 U/L (10-37); BILIRUBIN,TOTAL 0.9 MG/DL (0.1-1.0); BLOOD UREA NITROGEN 13 MG/DL (7-18); BUN/CREATININE RATIO 5.3 (5.4-32.0); CALCIUM 8.1 MG/DL (8.5-10.1); CHLORIDE 100 MMOL/L (99-107); CREATININE 2.45 MG/DL (0.60-1.10); GLUCOSE 374 MG/DL (70-104); POTASSIUM 3.8 MMOL/L (3.5-5.1); SODIUM 135 MMOL/L (135-145); TOTAL PROTEIN 5.8 G/DL (6.4-8.2); eGFR 26 ML/MIN
[2022-11-06 12:52] VITALS: BP 144/71
== END 2022-11-06 12:53 | disposition home or self-care (01) ==
LOC: ER 07:06
DX: R06.02 Shortness of breath (principal); I13.0 Hypertensive heart and chronic kidney disease with heart failure and stage 1 through stage 4 chronic kidney disease, or unspecified chronic kidney disease; E11.22 Type 2 diabetes mellitus with diabetic chronic kidney disease; N18.9 Chronic kidney disease, unspecified; I50.9 Heart failure, unspecified; K21.9 Gastro-esophageal reflux disease without esophagitis; Z91.010 Allergy to peanuts
CPT/HCPCS: 71045; 80053; 82140; 84484; 85025; 93005; 99285

== ENCOUNTER 2022-11-08 10:36 | Emergency (ER) | payer MEDICARE ==
[~2022-11-08] VITALS: Ht 170.2 cm; Wt 68.0 kg
[2022-11-08 11:16] LABS: BASOPHILS % (AUTO) 0.7 % (0-1); EOSINOPHILS # (AUTO) 0.2 X10'3 (0-0.9); EOSINOPHILS % (AUTO) 2.7 % (0-6); HEMATOCRIT 31.6 % (42.0-52.0); HEMOGLOBIN 10.6 g/dl (14.0-17.9); LYMPHOCYTES # (AUTO) 0.7 X10'3 (1.1-4.8); LYMPHOCYTES % (AUTO) 9.7 % (21-51); MEAN CORPUSCULAR HEMOGLOBIN 30.5 PG (27.0-31.0); MEAN CORPUSCULAR HGB CONC 33.6 g/dL (33.0-36.5); MEAN CORPUSCULAR VOLUME 90.6 FL (78-98); MEAN PLATELET VOLUME 7.2 FL (7.4-10.4); MONOCYTES # (AUTO) 0.4 X10'3 (0-0.9); NEUTROPHILS # (AUTO) 6.1 X10'3 (1.8-7.7); NEUTROPHILS % (AUTO) 80.9 % (42-75); PLATELET COUNT 277 X10'3 (140-440); RED BLOOD COUNT 3.49 X10'6 (4.70-6.10); RED CELL DISTRIBUTION WIDTH 16.4 % (11.5-14.5); WHITE BLOOD COUNT 7.5 X10'3 (4.5-11.0)
[2022-11-08 12:00] LABS: ALANINE AMINOTRANSFERASE 25 U/L (12-78); ALBUMIN 2.1 G/DL (3.4-5.0); ALBUMIN/GLOBULIN RATIO 0.6 (1.1-1.5); ALKALINE PHOSPHATASE 116 IU/L (46-116); ASPARTATE AMINO TRANSFERASE 16 U/L (10-37); BILIRUBIN,TOTAL 0.9 MG/DL (0.1-1.0); BLOOD UREA NITROGEN 12 MG/DL (7-18); BUN/CREATININE RATIO 6.9 (5.4-32.0); CREATININE 1.75 MG/DL (0.60-1.10); GLUCOSE 130 MG/DL (70-104); TOTAL CARBON DIOXIDE 33.1 MMOL/L (24-32); TOTAL PROTEIN 5.8 G/DL (6.4-8.2); eGFR 38 ML/MIN
--- NOTE | 2022-11-08 12:27 | NUR ---
PT MENTAL STATUS IMPROVING, ABLE TO ANSWER QUESTIONS ABOUT THE EVENTS THAT BROUGHT HIM TO ED. STILL SLEEPY BUT ANSWERING QUESTIONS APPROPRIATELY.
[2022-11-08 12:42] LABS: ANION GAP 4 (8-16); CHLORIDE 101 MMOL/L (99-107); POTASSIUM 3.7 MMOL/L (3.5-5.1); SODIUM 138 MMOL/L (135-145)
--- NOTE | 2022-11-08 13:42 | NUR ---
TELEPHONE CALL TO SON TAMMY AT THIS TIME, STATES HE WILL PICK PATIENT UP.
[2022-11-08 13:43] VITALS: BP 176/91
== END 2022-11-08 15:06 | disposition home or self-care (01) ==
LOC: ER 10:36
DX: E16.2 Hypoglycemia, unspecified (principal); I13.0 Hypertensive heart and chronic kidney disease with heart failure and stage 1 through stage 4 chronic kidney disease, or unspecified chronic kidney disease; N18.9 Chronic kidney disease, unspecified; I50.9 Heart failure, unspecified; E11.22 Type 2 diabetes mellitus with diabetic chronic kidney disease; E78.00 Pure hypercholesterolemia, unspecified; K21.9 Gastro-esophageal reflux disease without esophagitis; Z91.010 Allergy to peanuts
CPT/HCPCS: 80053; 82948; 84145; 85025; 93005; 99284